=== PATIENT | male | born 1950 | race Caucasian/White ===

== ENCOUNTER → 2017-05-05 | Outpatient (CLI) | payer OTHER ==
[~2017-05-05] VITALS: Ht 182.9 cm; Wt 86.2 kg
[~2017-05-05] MED LIST: ADVAIR 250-501 EACH INH; ADVAIR HFA 230M12 GM INH; ALBUTEROL2.5 MG/31 INH; ASPIRIN325 PO; COMBIVENT INH; COMBIVENT RESPIM4 GM INH; COZAAR 50 MG TA50 M2 PO; FENOFIBRATE145 M1 PO; FLONASE 0.05%50 MCG NASAL; LIPITOR10 MG PO; LOSARTAN-HCTZ1 EAC3 PO; PAIN & FEVER325 MG PO; PRADAXA150 MG PO; SORINE 80 MG TA80 M1 PO; SPIRIVA INH; VENTOLIN HFA 1818 GM INH
--- NOTE | ~2017-05-05 | P ---
[facility] [place] [address] PROCEDURE REPORT Name: MOISES AQUINO Room #: REG [facility]#: [id number] Admission: 05/05/17 Attend Phys: Lalo Rea MD Discharge: Date of : 51 Report #: [id number] THIS REPORT FOR: //name// CC: Lalo Rea BRIEF HISTORY: The patient is a 67-year-old male for his initial average risk screening colonoscopy. PREOPERATIVE DIAGNOSIS: Average risk screening colonoscopy. POSTOPERATIVE DIAGNOSES: 1. Multiple colon polyps. 2. Few scattered diverticula. 3. Unremarkable rectosigmoid surgical anastomosis. MEDICATIONS: Deep sedation with propofol per anesthesia. SPECIMENS: 1. Mid ascending colon polyp. 2. Splenic flexure polyp. 3. Polyps at 70 cm times 2. 4. Polyps at 50 cm times 3. 5. Polyps at 40 cm times 4. 6. Polyp at 20 cm. ESTIMATED BLOOD LOSS: 5 mL. PROCEDURE: Colonoscopy to cecum and terminal ileum with snare polypectomy and biopsy. FINDINGS: Prior to propofol sedation, the procedure of colonoscopy discussed with the patient as well as potential risks, benefits, and complications. He indicates he understands and desires to proceed. With the patient in left lateral decubitus position, digital examination was completed, which revealed no abnormalities. Subsequently, the [employer] video colonoscope was introduced into the rectum, advanced under direct vision to the cecum. Done with minimal difficulty. The cecum was identified by the ileocecal valve and the appendiceal orifice. We made multiple attempts to cross the ileocecal valve. We were able to advance the tip of the scope the ileocecal valve, but due looping, it would not pass into the terminal ileum. At that point, the scope was slowly withdrawn and careful circumferential views were obtained. The prep was good and as we withdrew the scope, he had normal appearing mucosa. In the proximal ascending colon, a small diverticulum was seen. As we withdrew the scope, a sessile polyp was seen in the mid ascending [facility] [address] [place] [address] PROCEDURE REPORT Name: MOISES AQUINO [facility] [id number] Admission: 05/05/17 Attend Phys: Lalo Rea MD Discharge: Date of : 51 Report #: [id number] colon. It was about 5 mm or so in greatest dimension. It was removed by cold snare polypectomy and recovered. The scope was further withdrawn and he was found to have another polyp at the splenic flexure, which was also about 5 mm and a sessile polyp removed by cold snare polypectomy. The scope was further withdrawn and at 70 cm, 2 polyps were seen. They were both removed by cold snare polypectomy. These were actually the flat lesions and the largest was about 8 mm. The scope was further withdrawn and at 50 cm, 3 diminutive polyps were seen and removed by biopsy. The scope was further withdrawn and 4 flat polyps were seen and removed by cold and hot snare polypectomy at 40 cm. The largest was in the range of about 8-10 mm. At 20 cm, a diminutive polyp was seen and removed by biopsy. The scope was further withdrawn and a few diverticula were seen. The rectosigmoid anastomosis was identified and noted to be unremarkable and widely patent. Scope was withdrawn in the rectum. Upon retroflexion, no additional abnormalities were seen. Scope was withdrawn. The patient tolerated the procedure well. CONDITION OF THE PATIENT UPON DISCHARGE: Following the procedure, the patient drowsy and he will be discharged home when fully ambulatory. INSTRUCTIONS TO THE PATIENT AND FAMILY AT THE TIME OF DISCHARGE: The patient had multiple polyps removed. A total of 12 were removed today. We will follow up on the path report. If 10 or more of these are adenomas, he should consider genetic counselling. Also, due to the large number of polyps, I suggest he return in 3 years for his next colonoscopy. This is the patient's initial average risk screening colonoscopy. Withdrawal time from the cecum including the polypectomy was 30 minutes and 39 seconds. By: 1055 1317 Lalo Rea MD /lorri
--- NOTE | ~2017-05-05 | S ---
[facility] [address] [place] [address] SURGICAL PATH RPT PROCEDURE Name: MOISES AQUINO Room #: REG [facility] [place].#: [id number] Admission: 05/05/17 Date of : 52 Discharge: Report #: [id number] Path Case #: [id number] PATHOLOGY REPORT DRAFT COLLECTION DATE: 05/05/2017 RECEIVED DATE: 05/06/2017 SPECIMEN(S) RECEIVED: A.Mid ascending polyp B.Spleenic flexure polyp C.Polyp 70 cm x2 D.Polyp at 50 cm x3 E.Polyp 40 cm x4 F.Polyp 20 cm
== END | disposition home or self-care (01) ==
LOC: GI 08:15
DX: Z12.11 Encounter for screening for malignant neoplasm of colon (principal); K63.5 Polyp of colon; K57.30 Diverticulosis of large intestine without perforation or abscess without bleeding; J43.9 Emphysema, unspecified; I10 Essential (primary) hypertension; E78.00 Pure hypercholesterolemia, unspecified; Z87.891 Personal history of nicotine dependence; Z98.890 Other specified postprocedural states; Z98.0 Intestinal bypass and anastomosis status; Z79.899 Other long term (current) drug therapy; Z79.82 Long term (current) use of aspirin
CPT/HCPCS: 62110; 62900

== ENCOUNTER 2017-06-03 15:04 | Inpatient (IN) | payer OTHER ==
[~2017-06-03] VITALS: Ht 182.9 cm; Wt 97.5 kg
--- NOTE | ~2017-06-03 | HC ---
[facility] [place] [address] CONSULTATION Name: MOISES AQUINO Room #: 350-P [facility] IN M.R.#: [id number] Admission: 06/03/17 Attend Phys: Deshawn Hernández MD Discharge: Date of : 51 Report #: [id number] THIS REPORT FOR: //name// CC: Gamaliel Pizano DATE OF SERVICE: 06/03/2017 REFERRING PROVIDER: Dr. Deshawn Hernández. REASON FOR CONSULTATION: Shortness of breath. HISTORY OF PRESENT ILLNESS: Our group was asked to see the patient in consultation while hospitalized at [facility], well known to me from office visits, pleasant 67-year-old male with an extensive history of emphysema with significant airflow obstruction on pulmonary function studies typically on inhaled therapy at home with p.r.n. albuterol and Spiriva as well as Advair and p.r.n. nebulizer treatments. The patient notes about 24 hours of increasing shortness of breath much worse today with minimal cough. No sputum production. No fevers, chills or sweats. No chest pains. Some improvement with Ventolin inhaler, but has used multiple times today with persistent symptoms, presented to the Emergency Department for further evaluation and was found to be in atrial fibrillation with rapid ventricular response. He has known history of atrial fibrillation. Also had significant electrolyte disturbances noted. A chest x-ray had shown a possible right upper lobe nodule. Most recent CT scan of the chest done on 03/2016 showed emphysema without any nodules in the chest. Denies any hemoptysis or other chest symptoms at this time. ALLERGIES: None known. PAST MEDICAL HISTORY: 1. COPD with severe air flow obstruction, emphysema, predominant on imaging studies. 2. History of paroxysmal atrial fibrillation. 3. Hypertension. 4. Hyperlipidemia. OUTPATIENT MEDICATIONS: Include Ventolin inhaler p.r.n., Spiriva daily, sotalol twice daily, losartan/ hydrochlorothiazide, atorvastatin, DuoNeb, aspirin and Advair. [facility] [address] [place] [address] CONSULTATION Name: MOISES AQUINO Room #: 350-P [facility] IN [facility].#: [id number] Admission: 06/03/17 Attend Phys: Deshawn Hernández MD Discharge: Date of : 51 Report #: [id number] SOCIAL HISTORY: Former smoker, quitting several years ago. No significant alcohol consumption. FAMILY HISTORY: Negative for any significant pulmonary disease. REVIEW OF SYSTEMS: CONSTITUTIONAL: Denies any fevers, chills or sweats. ENT: No upper respiratory congestion, rhinorrhea or dysphagia. CARDIOVASCULAR: Denies any chest pain or palpitations. GASTROINTESTINAL: No nausea, vomiting, diarrhea, constipation or abdominal pain. GENITOURINARY: No dysuria, no frequency or hematuria. INTEGUMENT: Denies any rash. MUSCULOSKELETAL: No joint pains, no lower extremity edema and no cramping. PHYSICAL EXAMINATION: VITAL SIGNS: Afebrile, pulse 130s and irregular, respiratory rate 20, blood pressure 116/71 and oxygen saturation 97% on room air. GENERAL: This is a pleasant elderly male, in no distress. HEENT: Clear oropharynx, Mallampati 1 airway, no thrush. NECK: Supple, no lymphadenopathy. LUNGS: Diminished, but clear. No wheezes noted. Prolonged expiratory phase appreciated. CARDIOVASCULAR: Heart: Tachycardic and irregular. No murmurs. ABDOMEN: Soft, nontender and no masses. EXTREMITIES: Without edema, warm and 2+ pulses. INTEGUMENT: No rash. LABORATORY DATA: Arterial blood gas on room air reveals pH 7.55, pCO2 of 31, pO2 of 72 and bicarb 26. White blood cell count 13,000, hemoglobin 15, hematocrit 44 and platelet count 412. Sodium 123, potassium 3.1, chloride 85, bicarbonate 28, BUN 23, creatinine 1.3, glucose 140 and proBNP mildly elevated at 699. CT scan of the chest is pending. IMPRESSION: 1. Acute exacerbation of chronic obstructive pulmonary disease. 2. Possible right upper lobe mass or infiltrate. 3. Atrial fibrillation with rapid ventricular response. 4. Significant emphysema. SUGGESTIONS: 1. Antimicrobial therapy for community-acquired pneumonia. 2. Systemic steroid taper. 3. Bronchodilators would change from DuoNebs to levalbuterol with ipratropium given significant tachycardia. 4. Await CT scan of the chest. [address] [address] CONSULTATION Name: MOISES AQUINO Room #: 350-P [facility] IN M.R.#: [id number] Admission: 06/03/17 Attend Phys: Deshawn Hernández MD Discharge: Date of : 51 Report #: [id number] 5. Sputum and blood cultures. 6. Additional recommendations to follow. Thank you for requesting our suggestions. By: 2244 0055 Toribio Pizano MD /lorri
--- NOTE | ~2017-06-03 | EKG ---
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
--- NOTE | ~2017-06-03 | HC ---
[facility] [place] [address] CONSULTATION Name: MOISES AQUINO Room #: 350-P ADM IN M.R.#: [id number] Admission: 06/03/17 Attend Phys: Deshawn Hernández MD Discharge: Date of : 51 Report #: [id number] THIS REPORT FOR: //name// CC: Gamaliel Pizano DATE OF SERVICE: 06/04/2017 HISTORY OF PRESENT ILLNESS: The patient is a 67-year-old white male who I was asked to see in the hospital today after he was noted be in atrial fibrillation. 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 He was admitted to the hospital and converted to sinus rhythm. I placed him on sotalol and Pradaxa. In 2012, he had another episode of atrial fibrillation, but never required cardioversion. Previous echocardiogram showed normal left ventricular function. He has remained in sinus rhythm since that time. Because of low CARINA score and no recurrent episodes of sotalol, actually recommended discontinuing Pradaxa in the past. He is not very active because of his COPD. However, he notes for the past few weeks, he has felt fatigued, had no appetite, felt somewhat lightheaded. He actually denied any chest pain, palpitations, or edema. Finally, came to the hospital last night, was noted to be in atrial fibrillation. He was started on IV diltiazem. He converted to sinus rhythm. PAST MEDICAL HISTORY: Otherwise significant for previous colostomy for diverticular disease, hernia repair. He has a history of hypertension, COPD. MEDICATIONS: Consist of Proventil nebulizer, aspirin a day, Lipitor 10 mg a day, losartan HCT 100/25 a day, sotalol 80 mg twice a day. ALLERGIES: He has previous intolerance to LEVOFLOXACIN. FAMILY HISTORY: His father had a heart attack. SOCIAL HISTORY: He is . He and his live in [place], [place]. He is retired from working as a . He quit smoking years ago. He rarely drinks alcohol. REVIEW OF SYSTEMS: He has had no history of stroke, peptic ulcer disease. Recent colonoscopy showed polyp, no liver disease, no kidney disease, no cancer, no psychiatric illness. PHYSICAL EXAMINATION: GENERAL: Revealed a middle-aged male lying in bed, appeared in no distress. [facility] [address] [place] [address] CONSULTATION Name: MOISES AQUINO Room #: 350-P [facility] IN [facility]#: [id number] Admission: 06/03/17 Attend Phys: Deshawn Hernández MD Discharge: Date of : 51 Report #: [id number] VITAL SIGNS: Currently his blood pressure is 100/60, his pulse is 80. He is afebrile. HEENT: He was anicteric. Conjunctivae pink. Mucous membranes moist. NECK: Veins nondistended. No carotid bruits. Neck supple. CHEST: Clear to auscultation. CARDIOVASCULAR: Regular rate and rhythm. ABDOMEN: Soft, nontender. EXTREMITIES: Had no edema. Posterior pulse 2+ bilaterally. SKIN: Warm, dry. NEUROLOGIC: Nonfocal. LYMPH: No adenopathy. MUSCULOSKELETAL: No joint effusion. His ECG on admission yesterday showed atrial fibrillation with a rapid ventricular response rate. He currently appears to be in sinus rhythm. His workup yesterday, he had a chest x-ray that showed normal heart size, clear lung marie. His CT scan of the chest with contrast last night showed right lung mass, possible inflammatory, although malignancy cannot be excluded. Consider followup. He had a small adrenal mass, distended gallbladder. There did appear to be an abdominal aortic aneurysm. His lab work, sodium 127, potassium is only 2.5, BUN 19, creatinine 1.1. Liver function studies were normal. Troponin 0.06. White blood cell count 12.8, hemoglobin 15.3, MCV is 108. IMPRESSION AND RECOMMENDATIONS: 1. Paroxysmal atrial fibrillation. I did recommend increasing sotalol to 160 mg twice day. I would resume Pradaxa 150 mg every 12 hours and stop aspirin. 2. Hypertension. Blood pressure noted to be low. I would discontinue the ARB and diuretics. 3. Hyperkalemia. Recommend replacing potassium. 4. Hyperlipidemia. The patient is on a statin drug. 5. Chronic obstructive pulmonary disease. 6. Previous tobacco abuse. 7. Lung mass. Recommend followup CT scan. 8. Small abdominal aortic aneurysm. Recommend followup ultrasound. <ELECTRONICALLY SIGNED> By: Gamaliel Sol MD, [facility] 06/05/17 1044 1435 1628 Gamaliel Sol MD, FACC /nt
[2017-06-03 15:07] VITALS: BP 117/97
[2017-06-03 16:21] LABS: ABG SAMPLE TYPE ARTERIAL; BE(vivo) 4.7 mmol/L (-2 to +3); HCO3 26.3 mmol/L (22.0-26.0); LACTATE 2.06 mmol/L (0.5-2.0); O2(CT) 20.6 mL/dL (15.0-23.0); O2Hb 94.4 % (92.0-98.0); PCO2 30.8 mmHg (35.0-45.0); PO2 71.5 mmHg (80.0-100.0); STICK SITE L.BRACHIAL; sO2 96.2 % (92.0-98.0); tCO2 27.3 mmol/L (24.0-30.0)
[2017-06-03 16:22] LABS: HEMOGLOBIN 15.3 gm/dL (14.0-18.0); MCH 37.7 pg (26.0-34.0); MCHC 34.8 g/dL (28.0-37.0); MCV 108.5 fL (80.0-100.0); PLATELET COUNT 412 thou/uL (150-400); RBC 4.06 mil/uL (4.50-6.00); RDW 14.4 % (10.5-14.5); WBC 12.8 thou/uL (4.0-11.0)
[2017-06-03 16:24] LABS: MANUAL DIFF YES
[2017-06-03 16:33] LABS: CALCIUM 9.1 mg/dL (8.5-10.1); CREATININE 1.3 mg/dL (0.7-1.3)
[2017-06-03 16:38] LABS: POTASSIUM 2.1 mmol/L (3.5-5.1)
[2017-06-03 16:44] LABS: ALBUMIN 3.2 g/dL (3.4-5.0); TOTAL BILIRUBIN 0.6 mg/dL (<0.1-1.0); TOTAL PROTEIN 6.8 g/dL (6.4-8.2)
[2017-06-03 16:45] LABS: TROPONIN-I 0.06 ng/mL (<0.04-0.07)
[2017-06-03 17:01] LABS: ABSOLUTE NEUTROPHILS 10.9 thou/uL (1.4-8.2); MACROCYTES 2+; OVALOCYTES 1+; TOTAL CELL COUNT 100
[2017-06-03 18:07] VITALS: BP 127/84
[2017-06-03 18:56] VITALS: BP 116/71
[2017-06-03 19:40] VITALS: BP 115/75
[2017-06-03 22:21] VITALS: BP 111/81
[2017-06-03 23:36] LABS: CREATININE 1.1 mg/dL (0.7-1.3)
[2017-06-03 23:42] LABS: POTASSIUM 2.5 mmol/L (3.5-5.1)
[2017-06-04] VITALS (9 sets, daily range): BP systolic 85–185; BP diastolic 49–69
[2017-06-05 04:09] VITALS: BP 88/50
[2017-06-05 08:16] VITALS: BP 99/68
[2017-06-05 09:16] LABS: HEMATOCRIT 38.7 % (42.0-52.0); MCH 37.8 pg (26.0-34.0); MCV 111.3 fL (80.0-100.0); RBC 3.48 mil/uL (4.50-6.00); RDW 14.7 % (10.5-14.5); WBC 13.1 thou/uL (4.0-11.0)
[2017-06-05 09:19] LABS: HEMOGLOBIN 13.2 gm/dL (14.0-18.0)
[2017-06-05 09:24] LABS: CALCIUM 8.5 mg/dL (8.5-10.1); CREATININE 1.1 mg/dL (0.7-1.3); POTASSIUM 3.4 mmol/L (3.5-5.1)
[2017-06-05 09:27] LABS: PHOSPHORUS 1.2 mg/dL (2.5-4.9)
[2017-06-05] MEDS ORDERED: AUGMENTIN 875-1 EACH PO (09:45)
[2017-06-05] MEDS ORDERED: PRADAXA150 MG PO (09:46)
[2017-06-05] MEDS ORDERED: MEDROLDOSEPACK PO (09:48)
[2017-06-05 11:12] VITALS: BP 99/68
== END 2017-06-05 12:00 | disposition home or self-care (01) | DRG 190 ==
LOC: ER 15:04 → EROBS 17:03 → 3W 17:03
PROVIDERS: Hospitalist; Internal Medicine; Nurse Practitioner Family
DX: J44.0 Chronic obstructive pulmonary disease with (acute) lower respiratory infection (principal); J18.9 Pneumonia, unspecified organism; E87.1 Hypo-osmolality and hyponatremia; J44.1 Chronic obstructive pulmonary disease with (acute) exacerbation; I10 Essential (primary) hypertension; E78.00 Pure hypercholesterolemia, unspecified; E87.6 Hypokalemia; I48.0 Paroxysmal atrial fibrillation; E87.5 Hyperkalemia; R91.8 Other nonspecific abnormal finding of lung field; I71.4 Abdominal aortic aneurysm, without rupture; Z79.51 Long term (current) use of inhaled steroids; Z79.82 Long term (current) use of aspirin; Z23 Encounter for immunization; Z79.899 Other long term (current) drug therapy; Z87.891 Personal history of nicotine dependence; Z93.3 Colostomy status; Z88.1 Allergy status to other antibiotic agents; Z82.49 Family history of ischemic heart disease and other diseases of the circulatory system
CPT/HCPCS: 10779

== ENCOUNTER 2017-06-16 16:53 | Emergency (ER) | payer OTHER ==
[~2017-06-16] VITALS: Ht 182.9 cm; Wt 90.7 kg
--- NOTE | ~2017-06-16 | EKG ---
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
[~2017-06-16 16:53] MED LIST changes: +AUGMENTIN 875-1 EACH PO; +MEDROLDOSEPACK PO
[2017-06-16 17:37] LABS: ABSOLUTE NEUTROPHILS 7.4 thou/uL (1.4-8.2); BASOPHILS 0.8 % (0.0-2.0); EOSINOPHILS 0.9 % (0.0-3.0); HEMATOCRIT 44.3 % (42.0-52.0); HEMOGLOBIN 15.2 gm/dL (14.0-18.0); LYMPHOCYTES 10.8 % (24.0-44.0); MANUAL DIFF NO; MCH 39.1 pg (26.0-34.0); MCHC 34.4 g/dL (28.0-37.0); MCV 113.6 fL (80.0-100.0); MONOCYTES 5.6 % (1.0-8.0); PLATELET COUNT 356 thou/uL (150-400); POLYS 81.9 % (36.0-66.0); RDW 15.4 % (10.5-14.5)
[2017-06-16 17:46] LABS: ANION GAP 10 mmol/L (7-16); BUN 17 mg/dL (7-18); CALCIUM 8.7 mg/dL (8.5-10.1); CHLORIDE 97 mmol/L (98-107); CO2 24 mmol/L (21-32); CREATININE 0.9 mg/dL (0.7-1.3); GLUCOSE 117 mg/dL (74-106); POTASSIUM 3.4 mmol/L (3.5-5.1); SODIUM 131 mmol/L (136-145)
[2017-06-16 17:54] LABS: ALBUMIN 3.2 g/dL (3.4-5.0); ALKALINE PHOSPHATASE 81 U/L (46-116); SGOT 19 U/L (15-37); SGPT 22 U/L (30-65); TOTAL BILIRUBIN 0.6 mg/dL (<0.1-1.0); TOTAL PROTEIN 6.4 g/dL (6.4-8.2); TROPONIN-I < 0.04 ng/mL (<0.06)
== END 2017-06-16 19:13 | disposition home or self-care (01) ==
LOC: ER 16:53
PROVIDERS: Physician Assistant
DX: R00.2 Palpitations (principal); I48.91 Unspecified atrial fibrillation; J44.9 Chronic obstructive pulmonary disease, unspecified; I10 Essential (primary) hypertension; E78.00 Pure hypercholesterolemia, unspecified; F10.99 Alcohol use, unspecified with unspecified alcohol-induced disorder; Z87.891 Personal history of nicotine dependence

== ENCOUNTER 2017-06-30 07:50 | Inpatient (IN) | payer OTHER ==
[2017-06-30] VITALS (7 sets, daily range): BP systolic 96–127; BP diastolic 64–86
[~2017-06-30] VITALS: Ht 185.4 cm; Wt 89.8 kg
--- NOTE | ~2017-06-30 | 2DMMODE ---
[facility] [place] [address] 2 D/M-MODE ECHOCARDIOGRAM Name: KENIAMOISES Room #: 360-P [facility] IN ..#: [id number] Admission: 06/30/17 Attend Phys: Heraclio Sinclair MD Discharge: Date of : 52 Date of Service: 07/01/17 1302 Report #: [id number] THIS REPORT FOR: //name// APPROVED REPORT Study performed: 07/01/2017 11:41:51 EXAM: Comprehensive 2D, Doppler, and color-flow Echocardiogram Patient Location: Bedside Room #: 360 Status: routine BSA: 2.12 HR: 103 bpm BP: 104/74 mmHg Other Information Study Quality: Poor Indications COPD Atrial Fibrillation Dyspnea 2D Dimensions LVEF(%): 49.54 (>50%) IVSd: 9.35 (7-11mm) LVOT Diam: 19.08 (18-24mm) LVDd: 42.14 mm PWd: 10.35 (7-11mm) Ascending Ao: 36.21 (22-36mm) LVDs: 31.68 (25-40mm) Aortic Root: 38.09 mm Feng's LVEF: 49.54 % Aortic Valve AoV Peak Kurt.: 1.16 m/s AO Peak Gr.: 5.41 mmHg Left Ventricle The left ventricle is normal size. Regional wall motion is not well visualized but grossly normal. There is normal left ventricular wall thickness. The left ventricular systolic function is normal. The left ventricular ejection fraction is within the normal range. LVEF is 50-55%. This study is not technically sufficient to allow evaluation of the LV diastolic function. Right Ventricle [facility] [address] [place] [address] 2 D/M-MODE ECHOCARDIOGRAM Name: MOISES AQUINO Room #: 360-[facility] IN [facility].#: [id number] Admission: 06/30/17 Attend Phys: Heraclio Sinclair MD Discharge: Date of : 52 Date of Service: 07/01/17 1302 Report #: [id number] The right ventricle is normal size. The right ventricular systolic function is normal. Atria The left atrium size is normal. The right atrium size is normal. Aortic Valve Aortic valve is not well visualized. No aortic regurgitation is present. There is no aortic valvular stenosis. Mitral Valve Mitral valve is not well visualized. There is no mitral valve regurgitation noted. No evidence of mitral valve stenosis. Tricuspid Valve Tricuspid valve is not well visualized. There is no tricuspid valve regurgitation noted. Pulmonic Valve Pulmonic valve is not well visualized. Great Vessels The aortic root is normal in size. IVC is normal in size and collapses >50% with inspiration. Pericardium Mild to moderate anterior pericardial effusion. <Conclusion> LVEF is 50-55%. Regional wall motion is not well visualized but grossly normal. There is no aortic valvular stenosis. Aortic valve is not well visualized. Mitral valve is not well visualized. No evidence of mitral valve stenosis. There is no mitral valve regurgitation noted. <ELECTRONICALLY SIGNED> By: Bradly Gipson MD, FACC 07/01/17 1302 1302 130 Bradly Gipson MD, FACC /INF
--- NOTE | ~2017-06-30 | EKG ---
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 : 1950 Requested By: Heraclio Sinclair Order Number: [id number] MD: Prashant Evans Measurements Intervals [place] Rate: 141 P: 0 [place]: 114 QRS: -72 QRSD: 111 T: 99 QT: 347 QTc: 532 Interpretive Statements Atrial fibrillation with a rapid ventricular response Left anterior fascicular block Poor R wave progression Borderline repolarization abnormality Prolonged QT interval No previous ECGs available for comparison Electronically Signed On 07-01-2017 8:52:46 [place] JUDGE by Prashant Evans [email or web address] <ELECTRONICALLY SIGNED> By: Prashant Evans MD, [facility] 07/01/17 0852 1343 42 Prashant Evans MD, [facility] /EPI
--- NOTE | ~2017-06-30 | HC ---
[facility] [place] [address] CONSULTATION Name: MOISES AQUINO Room #: 360-P [facility] IN M.R.#: [id number] Admission: 06/30/17 Attend Phys: Heraclio Sinclair MD Discharge: Date of : 51 Report #: [id number] THIS REPORT FOR: //name// CC: Heraclio Bahena REASON FOR CONSULTATION: Tachycardia, atrial fibrillation, shortness of breath. HISTORY OF PRESENT ILLNESS: The patient is a 67-year-old man with severe obstructive lung disease presenting with 3-5 days of increasing shortness of breath, productive cough and shortness of breath. He denies chest pain or pressure. We are asked to see him because he has had tachycardia of a sinus mechanism predominantly with frequent PACs, but has a history of atrial fibrillation paroxysmally. He is maintained in sinus rhythm with sotalol. He has been compliant with his medications. He has not really noticed any palpitation sensations, but he reported when he was in AFib he could not feel it either. He was supposed to be on Pradaxa and was discharged after his last evaluation and treatment by Dr. Sol, his usual imaging analyst, but then he ran out of the samples and then when he went to get it filled, his insurance copay was too high, so he only is taking aspirin currently. He has no current neuro symptoms of slurred speech, numbness or weakness. He denies bleeding, black color stools, hematemesis or hematuria. He denies syncope or presyncope. PAST MEDICAL HISTORY: Significant for the following: Previous colostomy for diverticular disease, hypertension, paroxysmal atrial fibrillation, history of normal LV systolic function, COPD. ALLERGIES: LEVOFLOXACIN. FAMILY HISTORY: Coronary artery disease. SOCIAL HISTORY: He is and is a remote smoker, he quit years ago. He does not drink. REVIEW OF SYSTEMS: GASTROINTESTINAL: No abdominal pain, nausea, vomiting, hematemesis. NEUROLOGIC: Denies slurred speech, weakness. MOUTH: Denies any dysphagia. SKIN: No rashes, no edema. GENITOURINARY: No dysuria. PULMONARY: Positive shortness of breath, positive cough, positive dyspnea on [facility] [address] [place] [address] CONSULTATION Name: MOISES AQUINO Room #: 360-P [facility] IN .R.#: [id number] Admission: 06/30/17 Attend Phys: Heraclio Sinclair MD Discharge: Date of : 52 Report #: [id number] exertion, positive PND. HEMATOLOGIC: No anemia or bleeding disorders. PAST SURGICAL HISTORY: No recent surgeries. PHYSICAL EXAMINATION: VITAL SIGNS: Blood pressure 104/74, pulse is 100 in sinus tachycardia, O2 sats of 100% on O2 via nasal cannula. GENERAL: This is a middle-aged male. He is alert, oriented, no apparent distress. HEENT: Eyes, EOMS are intact. No facial asymmetry. NECK: Supple. No jugular venous distention. CARDIOVASCULAR: Regular. There is no murmur, heart tones are distant. LUNGS: Faint expiratory wheezes, diminished breath sounds, no rales. ABDOMEN: Nontender. EXTREMITIES: No peripheral edema. IMAGING: Chest x-ray shows no evidence of heart failure. LABORATORY DATA: Sodium is 140, potassium is 2.4, chloride is 100, CO2 is 32, BUN is 8, creatinine is 0.8. Troponin I is 0.10. BNP is 1361. Hemoglobin is 13.8, white blood cell count is 6.8, platelet count is 240,000. IMPRESSION AND PLAN: 1. Respiratory failure. I suspect this is a chronic obstructive pulmonary disease exacerbation based on his x-ray findings. He does have an elevated BNP level, but I suspect this is probably related to pulmonary hypertension and right ventricular strain. 2. Paroxysmal atrial fibrillation. Given his lung disease, I am doubtful that he will be maintained in sinus rhythm with sotalol, thus I recommended restarting anticoagulation as Dr. Sol had recommended with oral warfarin as he cannot afford a novel agent. 3. Hypokalemia Replace per protocol. 4. Chronic obstructive pulmonary disease: Continue with medical therapy including nebulizers and if necessary, steroids as directed by our hospital colleagues. By: 0835 1133 Bradly Gipson MD, FACC /nt
--- NOTE | ~2017-06-30 | EKG ---
[address] [place] [address] ELECTROCARDIOGRAM REPORT Name: MOISES AQUINO Room #: 360-P ADM IN M.R.#: [id number] Admission: 06/30/17 Attend Phys: Heraclio Sinclair MD Discharge: Date of : 52 Report #: [id number] THIS REPORT FOR: //name// [facility] ED Test Date: 2017-06-30 Test Time: 08:06:36 Pat Name: MOISES AQUINO Department: Room: 360 Gender: M Nylon Machine Operator: RADHA : 1950 Requested By: Tristan Evans Order Number: [id number] MD: Prashant Evans Measurements Intervals [place] Rate: 106 P: 251 [place]: 67 QRS: -71 QRSD: 121 T: 94 QT: 467 QTc: 621 Interpretive Statements Technically poor tracing Probable Sinus tachycardia Nonspecific IVCD with LAD Inferior infarct, old Poor R wave progression Compared to ECG 06/16/2017 17:09:21 Inferior Q waves are more prominent heart rate is increased Electronically Signed On 07-01-2017 8:46:26 MEDICAID PLAN COMPLIANCE DIRECTOR by Prashant Evans [email or web address] <ELECTRONICALLY SIGNED> By: Prashant Evans MD, [facility] 07/01/17 0846 5 5 Prashant Evans MD, [facility] /EPI
[2017-06-30 08:44] LABS: HEMATOCRIT 44.8 % (42.0-52.0); HEMOGLOBIN 15.1 gm/dL (14.0-18.0); MCH 38.8 pg (26.0-34.0); MCHC 33.7 g/dL (28.0-37.0); MCV 115.1 fL (80.0-100.0); PLATELET COUNT 362 thou/uL (150-400); RBC 3.89 mil/uL (4.50-6.00); RDW 17.8 % (10.5-14.5); WBC 9.5 thou/uL (4.0-11.0)
[2017-06-30 08:46] LABS: MANUAL DIFF YES
[2017-06-30 08:47] LABS: CALCIUM 8.9 mg/dL (8.5-10.1); CREATININE 0.8 mg/dL (0.7-1.3); POTASSIUM 3.2 mmol/L (3.5-5.1)
[2017-06-30 08:56] LABS: TROPONIN-I 0.1 ng/mL (<0.06)
[2017-06-30 09:41] LABS: ABSOLUTE NEUTROPHILS 8.3 thou/uL (1.4-8.2); ANISOCYTOSIS 1+; MACROCYTES 2+; PLATELET ESTIMATE NORMAL; TOTAL CELL COUNT 100
[2017-07-01 04:10] VITALS: BP 94/67
[2017-07-01 06:01] LABS: HEMATOCRIT 40.6 % (42.0-52.0); HEMOGLOBIN 13.8 gm/dL (14.0-18.0); MCH 38.9 pg (26.0-34.0); MCV 114.4 fL (80.0-100.0); RBC 3.55 mil/uL (4.50-6.00); RDW 17.3 % (10.5-14.5); WBC 6.8 thou/uL (4.0-11.0)
[2017-07-01 06:09] LABS: CALCIUM 8.4 mg/dL (8.5-10.1); CREATININE 0.8 mg/dL (0.7-1.3)
[2017-07-01 06:15] LABS: POTASSIUM 2.4 mmol/L (3.5-5.1)
[2017-07-01 07:52] VITALS: BP 104/74
[2017-07-01 14:20] VITALS: BP 102/61
[2017-07-01 19:26] VITALS: BP 102/73
[2017-07-02 03:14] VITALS: BP 103/63
[2017-07-02 03:44] LABS: PROTIME 10.1 Seconds (9.3-11.4)
[2017-07-02 03:50] LABS: CALCIUM 8.4 mg/dL (8.5-10.1); CREATININE 0.9 mg/dL (0.7-1.3); POTASSIUM 3.1 mmol/L (3.5-5.1)
[2017-07-02 08:07] VITALS: BP 114/69
[2017-07-02] MEDS ORDERED: COUMADIN 5 MG TA5 M1 PO (10:15)
[2017-07-02 10:23] VITALS: BP 114/69
== END 2017-07-02 13:14 | disposition home or self-care (01) | DRG 308 ==
LOC: ER 07:50 → 3W 10:51 → EROBS 10:51 → 3W 11:52
PROVIDERS: Emergency Medicine; Hospitalist
DX: I48.0 Paroxysmal atrial fibrillation (principal); J96.90 Respiratory failure, unspecified, unspecified whether with hypoxia or hypercapnia; J44.1 Chronic obstructive pulmonary disease with (acute) exacerbation; I11.0 Hypertensive heart disease with heart failure; I50.9 Heart failure, unspecified; E78.00 Pure hypercholesterolemia, unspecified; E87.6 Hypokalemia; Z87.891 Personal history of nicotine dependence; Z79.899 Other long term (current) drug therapy; Z79.82 Long term (current) use of aspirin; Z88.1 Allergy status to other antibiotic agents; Z82.49 Family history of ischemic heart disease and other diseases of the circulatory system; Z90.49 Acquired absence of other specified parts of digestive tract
CPT/HCPCS: 10779

== ENCOUNTER 2017-07-25 15:33 | Emergency (ER) | payer OTHER ==
[~2017-07-25] VITALS: Ht 185.4 cm; Wt 86.2 kg
[~2017-07-25 15:33] MED LIST changes: +COUMADIN 5 MG TA5 M1 PO; +POTASSIUM CHLO10 MEQ PO
[2017-07-25] MEDS ORDERED: DOXYCYCLINE 10100 MG PO (18:00)
[2017-07-25] MEDS ORDERED: OXYCODONE HCL 55 MG PO (18:00)
[2017-07-28] MEDS ORDERED: LEVAQUIN 250 M250 MG PO (00:10)
[2017-07-28] MEDS ORDERED: SOTALOL240 MG PO (03:44)
== END 2017-07-25 18:20 | disposition home or self-care (01) ==
LOC: ER 15:33
DX: L03.113 Cellulitis of right upper limb (principal); I82.611 Acute embolism and thrombosis of superficial veins of right upper extremity; J44.9 Chronic obstructive pulmonary disease, unspecified; I10 Essential (primary) hypertension; E78.00 Pure hypercholesterolemia, unspecified; Z87.891 Personal history of nicotine dependence

== ENCOUNTER 2017-08-16 06:05 | Inpatient (IN) | payer OTHER ==
[2017-08-16] VITALS (10 sets, daily range): BP systolic 104–130; BP diastolic 57–83
[~2017-08-16] VITALS: Ht 185.4 cm; Wt 85.3 kg
--- NOTE | ~2017-08-16 | EKG ---
[address] [address] ELECTROCARDIOGRAM REPORT Name: KENIAMOISES M Room #: 218-[facility] IN M.R.#: [id number] Admission: 08/16/17 Attend Phys: Markus Luong DO Discharge: 08/21/17 Date of : 52 Report #: [id number] THIS REPORT FOR: //name// [facility] Test Date: 2017-08-21 Test Time: 11:12:51 Pat Name: MOISES AQUINO Department: Room: 218 P Gender: M Transport Medic: larry : 1950 Requested By: Gamaliel Sol Order Number: [id number] MD: Prashant Evans Measurements Intervals [place] Rate: 90 P: -35 ME: 256 QRS: -70 QRSD: 118 T: 84 QT: 357 QTc: 437 Interpretive Statements Sinus rhythm Prolonged ME interval Left anterior fascicular block Nonspecific intraventricular conduction delay Compared to ECG 08/19/2017 07:22:02 No significant change was found Electronically Signed On 08-21-2017 14:34:19 HVAC DESIGN MECHANICAL ENGINEER by Prashant Evans [email or web address] <ELECTRONICALLY SIGNED> By: Prashant Evans MD, [facility] 08/21/17 1434 1112 1112 Prashant Evans MD, [facility] /EPI
--- NOTE | ~2017-08-16 | EKG ---
[address] [place] [address] ELECTROCARDIOGRAM REPORT Name: NATI AQUINOEN Jordy Room #: 218-P ADM IN M.R.#: [id number] Admission: 08/16/17 Attend Phys: Markus Luong DO Discharge: Date of : 52 Report #: [id number] THIS REPORT FOR: //name// [facility] Test Date: 2017-08-17 Test Time: 13:40:52 Pat Name: MOISES AQUINO Department: Room: 218 P Gender: M Rubber Worker: Jordy PEARL : 1950 Requested By: Amarjit Méndez Order Number: [id number] MD: Prashant Evans Measurements Intervals [place] Rate: 92 P: ND: QRS: -72 QRSD: 109 T: 96 QT: 357 QTc: 442 Interpretive Statements Atrial flutter Left anterior fascicular block Nonspecific ST and T wave abnormality Compared to ECG 08/16/2017 06:15:08 No significant change was found Electronically Signed On 08-19-2017 7:46:09 WAISTBAND SETTER by Prashant Evans [email or web address] <ELECTRONICALLY SIGNED> By: Prashant Evans MD, [facility] 08/19/17 0746 1340 1340 Prashant Evans MD, [facility] /EPI
--- NOTE | ~2017-08-16 | HC ---
[facility] [place] [address] CONSULTATION Name: MOISES AQUINO Room #: 218-P [facility] IN M.R.#: [id number] Admission: 08/16/17 Attend Phys: Markus Luong DO Discharge: Date of : 52 Report #: [id number] THIS REPORT FOR: //name// CC: Kayy Leahy MD DATE OF SERVICE: 08/16/2017 HISTORY OF PRESENT ILLNESS: The patient is a 67-year-old white male who I was asked to see in the hospital today after he was noted to be in atrial fibrillation. The patient initially presented in 2011, in atrial flutter. He was admitted to the hospital and converted to sinus rhythm. I placed him on sotalol and Pradaxa. Echocardiogram showed normal left ventricular function. He was actually taken off Pradaxa because he remained in sinus rhythm. He was just admitted to [facility] in May of this year with recurrent atrial fibrillation. He was converted to sinus rhythm. I increased sotalol from 80 to 160 mg twice day. He was noted to have swelling of his ankles. He was diuresed and was discharged on Eliquis. He states the last few days he has had recurrent palpitations. He finally came to the emergency room this afternoon and noted to be in atrial fibrillation. He was started on IV diltiazem. I was asked to see him for further evaluation and treatment. He denies any significant lightheadedness. He did feel some tightness in his chest and short of breath. He had no syncope. He has had no recent bleeding. PAST MEDICAL HISTORY: Otherwise significant for colostomy for diverticular disease, hernia repair, hypertension, COPD, he has had a history of lung nodules, has been followed by the pulmonary service, he had findings of a small abdominal aortic aneurysm on screening. CURRENT MEDICATIONS: Consists of oxycodone for chronic back pain, Eliquis 5 mg twice a day, Lasix 40 mg a day, potassium 10 mEq a day, sotalol 240 mg twice a day, albuterol inhaler, Lipitor 10 mg a day, and Flonase nasal sprays. ALLERGIES: He has no known drug allergies. FAMILY HISTORY: His father had a heart attack. SOCIAL HISTORY: He is . He and his live in [place], [place]. 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 Quit smoking recently. Rarely drinks alcohol. REVIEW OF SYSTEMS: No history of stroke or peptic ulcer disease. He had a colon polyp in the past. No liver disease. No kidney disease. No cancer. No psychiatric illness. [facility] [address] [place] [address] CONSULTATION Name: MOISES AQUINO Room #: 218-P [facility] IN M.R.#: [id number] Admission: 08/16/17 Attend Phys: Markus Luong DO Discharge: Date of : 52 Report #: [id number] PHYSICAL EXAMINATION: GENERAL: Elderly male, lying in bed, appeared in mild distress. VITAL SIGNS: His blood pressure 120/70, pulse is 130 and irregular, respirations nonlabored, he is afebrile. HEENT: He was anicteric. Mucous membranes are moist. NECK: Veins appear mildly distended. CHEST: Clear to auscultation. HEART: Irregular tachycardia. ABDOMEN: Soft. EXTREMITIES: Had trace edema. SKIN: Warm and dry. His ECG showed atrial fibrillation, left axis, rapid ventricular response rate. His workup, echocardiogram done earlier this month showed no pericardial effusion, normal left ventricular function. His chest x-ray today showed normal heart size, clear lung marie. CT scan of the chest using a PE protocol today showed prominent aorta, no aneurysm. Venous duplex scan done earlier this month showed no DVT. LAB WORK: Sodium 136, potassium 3.5, BUN was 13, creatinine 1.1, glucose 150. Troponin 0.04. His white blood cell count 11.1 and hemoglobin 14.9. TSH in May 0.49, T4 1.4. IMPRESSION AND RECOMMENDATIONS: 1. Paroxysmal atrial fibrillation. Despite sotalol. At this time, I would recommend switching from sotalol to amiodarone. I would consider referral for ablation. I would continue anticoagulation with Eliquis. 2. Hypertension. I would hold medications because of low blood pressure. 3. History of hyperlipidemia. The patient is on a statin drug. 4. Previous tobacco abuse. 5. Chronic obstructive pulmonary disease. 6. Small abdominal aortic aneurysm. 7. Edema. Suspect venous insufficiency. <ELECTRONICALLY SIGNED> By: Gamaliel Sol MD, FACC 08/17/17 0952 1727 1840 Gamaliel Sol MD, FACC /nt
--- NOTE | ~2017-08-16 | EKG ---
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 IVCD Missing lead(s): V3 Compared to ECG 07/27/2017 23:55:40 Electronically Signed On 08-16-2017 9:00:33 TRACK REPAIR PERSON by Amarjit Méndez [email or web address] <ELECTRONICALLY SIGNED> By: Amarjit Méndez MD 08/16/17 0900 4 4 Amarjit Méndez MD /KJ
--- NOTE | ~2017-08-16 | EKG ---
[address] [employer] [address] ELECTROCARDIOGRAM REPORT Name: MOISES AQUINO Room #: 218-P ADM IN M.R.#: [id number] Admission: 08/16/17 Attend Phys: Markus Luong DO Discharge: Date of : 52 Report #: [id number] THIS REPORT FOR: //name// [facility] Test Date: 2017-08-20 Test Time: 08:01:53 Pat Name: MOISES AQUINO Department: Room: 218 P Gender: M 911 Emergency Services Dispatcher: MICHELINE : 1950 Requested By: Gamaliel Sol Order Number: [id number] MD: Prashant Evans Measurements Intervals [place] Rate: 91 P: 26 PA: 260 QRS: -55 QRSD: 121 T: 89 QT: 356 QTc: 439 Interpretive Statements Sinus rhythm Prolonged PA interval Nonspecific IVCD with LAD Compared to ECG 08/19/2017 07:22:02 Sinus rhythm has replaced atrial flutter Electronically Signed On 08-21-2017 14:13:09 SEPHORA OPERATIONS CONSULTANT by Prashant Evans [email or web address] <ELECTRONICALLY SIGNED> By: Prashant Evans MD, [facility] 08/21/17 1413 08 08 Prashant Evans MD, [facility] /EPI
--- NOTE | ~2017-08-16 | EKG ---
[address] [address] ELECTROCARDIOGRAM REPORT Name: MOISES AQUINO Room #: 218-P ADM IN M.R.#: [id number] Admission: 08/16/17 Attend Phys: Markus Luong DO Discharge: Date of : 52 Report #: [id number] THIS REPORT FOR: //name// [facility] Test Date: 2017-08-17 Test Time: 07:18:29 Pat Name: MOISES AQUINO Department: Room: 218 P Gender: M Printing Shop Supervisor: tyler : 1950 Requested By: Gamaliel Sol Order Number: [id number] MD: Prashant Evans Measurements Intervals [place] Rate: 78 P: PA: QRS: -70 QRSD: 112 T: 217 QT: 410 QTc: 468 Interpretive Statements Atrial flutter with predominant 4:1 AV block Left anterior fascicular block Borderline repolarization abnormality Compared to ECG 08/16/2017 06:15:08 Atrial flutter is now present Electronically Signed On 08-19-2017 7:41:43 PICTURE BOOKER by Prashant Evans [email or web address] <ELECTRONICALLY SIGNED> By: Prashant Evans MD, [facility] 08/19/17 0741 7 7 Prashant Evans MD, [facility] /EPI
--- NOTE | ~2017-08-16 | EKG ---
[address] [address] ELECTROCARDIOGRAM REPORT Name: MOISES AQUINO Room #: 218-P ADM IN M.R.#: [id number] Admission: 08/16/17 Attend Phys: Markus Luong DO Discharge: Date of : 52 Report #: [id number] THIS REPORT FOR: //name// [facility] Test Date: 2017-08-18 Test Time: 07:25:17 Pat Name: MOISES AQUINO Department: Room: 218 P Gender: M Flanging Machine Operator: tyler : 1950 Requested By: Gamaliel Sol Order Number: [id number] MD: Amarjit Méndez Measurements Intervals [place] Rate: 81 P: AR: QRS: -77 QRSD: 117 T: 94 QT: 499 QTc: 580 Interpretive Statements Atrial flutter with predominant 4:1 AV block Left anterior fascicular block Nonspecific T abnormalities, lateral leads Electronically Signed On 08-19-2017 8:16:12 BOTTOM HOOP DRIVER by Amarjit Méndez [email or web address] <ELECTRONICALLY SIGNED> By: Amarjit Méndez MD 08/19/17 0816 D: 12724 4 Amarjit Méndez MD /KJ
--- NOTE | ~2017-08-16 | EKG ---
[address] [address] ELECTROCARDIOGRAM REPORT Name: MOISES AQUINO Room #: 218-P ADM IN M.R.#: [id number] Admission: 08/16/17 Attend Phys: Markus Luong DO Discharge: Date of : 52 Report #: [id number] THIS REPORT FOR: //name// [facility] Test Date: 2017-08-19 Test Time: 07:22:02 Pat Name: MOISES AQUINO Department: Room: 218 P Gender: M Concrete Precast Moulder: WILL : 1950 Requested By: Gamaliel Sol Order Number: [id number] MD: Prashant Evans Measurements Intervals [place] Rate: 86 P: SC: QRS: -68 QRSD: 134 T: 90 QT: 402 QTc: 481 Interpretive Statements Atrial flutter with predominant 4:1 AV block Left anterior hemiblock Compared to ECG 08/16/2017 06:15:08 No significant change was found Electronically Signed On 08-19-2017 9:15:22 FLAME CUTTER by Prashant Evans [email or web address] <ELECTRONICALLY SIGNED> By: Prashant Evans MD, [facility] [address] 1 1 Prashant Evans MD, [facility] /EPI
--- NOTE | ~2017-08-16 | TEE ---
[facility] [address] [place] [address] TRANSESOPHAGEAL ECHOCARDIOGRAM Name: MOISES AQUINO Room #: 218-P [facility] IN M.R.#: [id number] Admission: 08/16/17 Attend Phys: Markus Luong, Discharge: Date of : 52 Date of Service: 08/19/17 1519 Report #: [id number] THIS REPORT FOR: //name// APPROVED REPORT Study performed: 08/19/2017 08:34:12 EXAM: Comprehensive 2D, Doppler, and color-flow Echocardiogram Patient Location: [facility] Room #: 218 Status: routine BSA: 2.07 HR: 80 bpm BP: 133/67 mmHg Rhythm: Atrial Flutter Other Information Study Quality: Good Indications Atrial flutter Echo Enhancing Agent Indication: Rule out Shunt Agent(s) / Amount(s) Used: Agitated Saline 14 cc Procedure After obtaining informed consent, patient underwent transesophageal echo in the [employer]. Type of Sedation : Conscious Sedation Sedation was administered by Pushpa Leija RN. Sedation start time: 08:08 Case end Time: 08:20 Sedation was achieved intravenously with: Versed (3 mg) Transesophageal probe was inserted and advanced into esophagus without difficulty by Gamaliel Sol MD, FACC. Echo enhancement indication: R/O Septal defect. Echo enhancement agent administered: Agitated Saline The GIRISH was performed without complications. Throughout the procedure, the blood pressure, pulse oximetry, cardiac rhythm, and rate were monitored. The patient tolerated the procedure without adverse effects. Recovery from conscious sedation was uneventful and vital signs were stable. [facility] [address] [place] [address] TRANSESOPHAGEAL ECHOCARDIOGRAM Name: MOISES AQUINO Room #: 218-P [facility] IN ..#: [id number] Admission: 08/16/17 Attend Phys: Markus Luong, Discharge: Date of : 52 Date of Service: 08/19/17 1519 Report #: [id number] Left Ventricle The left ventricle is normal size. There is normal LV segmental wall motion. There is normal left ventricular wall thickness. The left ventricular systolic function is normal. The left ventricular ejection fraction is within the normal range. LVEF is 60-65%. Right Ventricle The right ventricle is normal size. The right ventricular systolic function is normal. Atria Left atrium is mildly dilated. Thrombus is present in the left atrial appendage. Interatrial septum is intact without evidence of ASD or PFO. Right atrium is mildly dilated. Aortic Valve The aortic valve is normal in structure. Mild aortic regurgitation. There is no aortic valvular stenosis. Mitral Valve slight bowing noted of the mitral valve leaflets Moderate mitral regurgitation. No evidence of mitral valve stenosis. Tricuspid Valve The tricuspid valve is normal in structure. Mild tricuspid regurgitation. Pulmonic Valve The pulmonary valve is normal in structure. Trace pulmonic regurgitation. Great Vessels The aortic root is normal in size. Pericardium There is no pericardial effusion. <Conclusion> LVEF is 60-65%. Left atrium is mildly dilated. Thrombus is present in the left atrial appendage. Right atrium is mildly dilated. Interatrial septum is intact without evidence of ASD or PFO. [facility] [address] [place] [address] TRANSESOPHAGEAL ECHOCARDIOGRAM Name: MOISES AQUINO Room #: 218-P ADM IN M.R.#: [id number] Admission: 08/16/17 Attend Phys: Markus Luong, Discharge: Date of : 52 Date of Service: 08/19/171518 Report #: [id number] Mild aortic regurgitation. Moderate mitral regurgitation. <ELECTRONICALLY SIGNED> By: Gamaliel Sol MD, FACC 08/19/179 18 18 Gamaliel Sol MD, FACC /INF
[~2017-08-16 06:05] MED LIST changes: +CLEOCIN HCL150 MG PO; +DOXYCYCLINE 10100 MG PO; +ELIQUIS5 MG PO; +KLOR-CON 1010 MEQ PO; +LASIX 40 MG TAB40 M2 PO; +LEVAQUIN 250 M250 MG PO; +OXYCODONE HCL 55 MG PO; +SOTALOL240 MG PO
[2017-08-16 06:47] LABS: HEMATOCRIT 42.7 % (42.0-52.0); HEMOGLOBIN 14.9 gm/dL (14.0-18.0); MCH 40.5 pg (26.0-34.0); MCHC 34.9 g/dL (28.0-37.0); MCV 115.9 fL (80.0-100.0); RBC 3.68 mil/uL (4.50-6.00); RDW 13.7 % (10.5-14.5); WBC 11.1 thou/uL (4.0-11.0)
[2017-08-16 07:01] LABS: ANION GAP 15 mmol/L (7-16); BUN 13 mg/dL (7-18); CALCIUM 9.4 mg/dL (8.5-10.1); CHLORIDE 99 mmol/L (98-107); CO2 22 mmol/L (21-32); CREATININE 1.1 mg/dL (0.7-1.3); GLUCOSE 150 mg/dL (74-106); SODIUM 136 mmol/L (136-145)
[2017-08-16 07:10] LABS: TROPONIN-I < 0.04 ng/mL (<0.06)
[2017-08-16 07:13] LABS: POTASSIUM 2.8 mmol/L (3.5-5.1)
[2017-08-16 11:50] LABS: BE(vivo) -3.3 mmol/L (-2 to +3); HCO3 18.9 mmol/L (22.0-26.0); PO2 74.2 mmHg (80.0-100.0); pH 7.462 (7.360-7.450); sO2 95.9 % (92.0-98.0)
[2017-08-17 03:16] VITALS: BP 118/80
[2017-08-17 04:32] VITALS: BP 117/75
[2017-08-17 08:00] VITALS: BP 97/61
[2017-08-17 12:10] VITALS: BP 124/64
[2017-08-17 16:05] VITALS: BP 102/54
[2017-08-17 20:00] VITALS: BP 109/71
[2017-08-18 03:39] VITALS: BP 97/61
[2017-08-18 08:06] VITALS: BP 107/66
[2017-08-18 11:05] VITALS: BP 114/69
[2017-08-18 19:52] VITALS: BP 119/61
[2017-08-19 03:48] VITALS: BP 133/67
[2017-08-19 03:56] LABS: CALCIUM 9.1 mg/dL (8.5-10.1); CREATININE 0.9 mg/dL (0.7-1.3); POTASSIUM 3.8 mmol/L (3.5-5.1)
[2017-08-19 04:43] LABS: ABSOLUTE NEUTROPHILS 8.2 thou/uL (1.4-8.2); BASOPHILS 0.4 % (0.0-2.0); EOSINOPHILS 0.9 % (0.0-3.0); HEMATOCRIT 34.6 % (42.0-52.0); LYMPHOCYTES 10.6 % (24.0-44.0); MCH 40.5 pg (26.0-34.0); MCHC 33.9 g/dL (28.0-37.0); MCV 119.5 fL (80.0-100.0); MONOCYTES 8.1 % (1.0-8.0); RDW 14.3 % (10.5-14.5); WBC 10.2 thou/uL (4.0-11.0)
[2017-08-19 04:45] LABS: HEMOGLOBIN 11.7 gm/dL (14.0-18.0); PLATELET COUNT 264 thou/uL (150-400)
[2017-08-19 12:00] VITALS: BP 90/56
[2017-08-19 16:00] VITALS: BP 101/61
[2017-08-19 19:41] VITALS: BP 93/63
[2017-08-19 23:34] VITALS: BP 109/67
[2017-08-20 03:46] LABS: CALCIUM 9.1 mg/dL (8.5-10.1); CREATININE 0.8 mg/dL (0.7-1.3); POTASSIUM 4.2 mmol/L (3.5-5.1)
[2017-08-20 04:10] VITALS: BP 111/69
[2017-08-20 07:19] VITALS: BP 108/77
[2017-08-20 11:52] VITALS: BP 108/75
[2017-08-20 14:59] VITALS: BP 104/61
[2017-08-20 19:54] VITALS: BP 110/61
[2017-08-20 23:59] VITALS: BP 113/74
[2017-08-21 03:46] VITALS: BP 109/65
[2017-08-21] MEDS ORDERED: LOPRESSOR50 PO (08:33)
[2017-08-21] MEDS ORDERED: CARDIZEM CD 30300 M1 PO (08:33)
[2017-08-21] MEDS ORDERED: PACERONE 200 M200 M1 PO (08:33)
[2017-08-21 09:55] VITALS: BP 101/73
[2017-08-21 13:08] VITALS: BP 112/74
[2017-08-21 13:27] VITALS: BP 112/74
[2017-10-07] MEDS ORDERED: PACERONE 200 M200 M1 PO (10:26)
[2018-01-18] MEDS ORDERED: VITAMIN B-6100 MG PO (15:31)
[2018-01-18] MEDS ORDERED: CENTRUM SILVER1 EAC2 PO (15:32)
[2018-01-18] MEDS ORDERED: VITAMIN B-121000 MC3 PO (15:32)
[2018-01-18] MEDS ORDERED: FLONASE 0.05%50 MCG NASAL (16:01)
[2018-01-18] MEDS ORDERED: GABAPENTIN 100100 MG PO (16:02)
== END 2017-08-21 14:00 | disposition home or self-care (01) | DRG 308 ==
LOC: ER 06:05 → EROBS 07:21 → 2N 07:21
PROVIDERS: Emergency Medicine; Family Medicine; Internal Medicine Cardiovascular Disease
PROC: B24BZZ4 Ultrasonography of Heart with Aorta, Transesophageal (ICD-10-PCS; principal; 2017-08-18)
DX: I48.0 Paroxysmal atrial fibrillation (principal); J96.21 Acute and chronic respiratory failure with hypoxia; I50.30 Unspecified diastolic (congestive) heart failure; J44.1 Chronic obstructive pulmonary disease with (acute) exacerbation; I48.92 Unspecified atrial flutter; E78.00 Pure hypercholesterolemia, unspecified; E87.6 Hypokalemia; E78.5 Hyperlipidemia, unspecified; I71.4 Abdominal aortic aneurysm, without rupture; I11.0 Hypertensive heart disease with heart failure; E27.9 Disorder of adrenal gland, unspecified; I87.2 Venous insufficiency (chronic) (peripheral); G47.30 Sleep apnea, unspecified; I51.3 Intracardiac thrombosis, not elsewhere classified; Z93.3 Colostomy status; Z87.891 Personal history of nicotine dependence; Z79.899 Other long term (current) drug therapy; Z82.49 Family history of ischemic heart disease and other diseases of the circulatory system
CPT/HCPCS: 10081

== ENCOUNTER 2017-09-01 13:45 | Inpatient (IN) | payer OTHER ==
[~2017-09-01] VITALS: Ht 185.4 cm; Wt 83.5 kg
--- NOTE | ~2017-09-01 | EKG ---
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 Offbearer: [facility] : 1950 Requested By: Lit Chaney Order Number: [id number] MD: Amarjit Méndez Measurements Intervals [place] Rate: 75 P: -76 HI: 245 QRS: -71 QRSD: 124 T: 81 QT: 432 QTc: 483 Interpretive Statements Sinus or ectopic atrial rhythm Prolonged [place] interval Nonspecific IVCD with LAD Compared to ECG 08/21/2017 11:12:51 Ectopic atrial rhythm now present Sinus rhythm no longer present Left anterior fascicular block no longer present Electronically Signed On 09-01-2017 15:07:31 AIR TRAFFIC CONTROL SPECIALIST [facility]ENTER by Amarjit Méndez [email or web address] <ELECTRONICALLY SIGNED> By: Amarjit Méndez MD 09/01/17 1507 1456 1456 Amarjit Méndez MD /[facility]
[~2017-09-01 13:45] MED LIST changes: +CARDIZEM CD 30300 M1 PO; +LOPRESSOR50 PO; +PACERONE 200 M200 M1 PO
[2017-09-01 13:46] VITALS: BP 142/70
[2017-09-01 14:37] LABS: HEMATOCRIT 38.7 % (42.0-52.0); HEMOGLOBIN 13.2 gm/dL (14.0-18.0); MCH 39.3 pg (26.0-34.0); MCHC 34.2 g/dL (28.0-37.0); MCV 115.1 fL (80.0-100.0); RBC 3.37 mil/uL (4.50-6.00); RDW 14.7 % (10.5-14.5); WBC 11.1 thou/uL (4.0-11.0)
[2017-09-01 15:16] LABS: ANION GAP 11 mmol/L (7-16); BUN 19 mg/dL (7-18); CALCIUM 9.1 mg/dL (8.5-10.1); CHLORIDE 94 mmol/L (98-107); CO2 23 mmol/L (21-32); CREATININE 1.1 mg/dL (0.7-1.3); GLUCOSE 108 mg/dL (74-106); POTASSIUM 3.7 mmol/L (3.5-5.1); SODIUM 128 mmol/L (136-145)
[2017-09-01 15:24] LABS: ALBUMIN 3.5 g/dL (3.4-5.0); SGOT 18 U/L (15-37); SGPT 23 U/L (30-65); TOTAL BILIRUBIN 0.2 mg/dL (<0.1-1.0); TOTAL PROTEIN 6.9 g/dL (6.4-8.2); TROPONIN-I < 0.04 ng/mL (<0.06)
[2017-09-01 18:17] VITALS: BP 121/64
[2017-09-01 19:06] VITALS: BP 124/66
[2017-09-01 23:35] VITALS: BP 118/52
[2017-09-02 03:04] VITALS: BP 104/59
[2017-09-02 04:33] LABS: HEMATOCRIT 35.3 % (42.0-52.0); HEMOGLOBIN 12.3 gm/dL (14.0-18.0); MCHC 34.8 g/dL (28.0-37.0); MCV 114.9 fL (80.0-100.0); RBC 3.08 mil/uL (4.50-6.00); RDW 14.3 % (10.5-14.5); WBC 10.3 thou/uL (4.0-11.0)
[2017-09-02 04:51] LABS: CALCIUM 8.9 mg/dL (8.5-10.1); CREATININE 0.8 mg/dL (0.7-1.3); POTASSIUM 3.5 mmol/L (3.5-5.1)
[2017-09-02 08:00] VITALS: BP 105/62
[2017-09-02 15:59] VITALS: BP 120/57
[2017-09-02 19:31] VITALS: BP 132/64
[2017-09-03 03:44] LABS: CALCIUM 8.8 mg/dL (8.5-10.1); CREATININE 0.9 mg/dL (0.7-1.3); POTASSIUM 3.6 mmol/L (3.5-5.1)
[2017-09-03 05:00] VITALS: BP 109/69
[2017-09-03 08:11] VITALS: BP 98/53
[2017-09-03 16:15] VITALS: BP 98/61
[2017-09-03 19:36] VITALS: BP 90/60
[2017-09-04 03:46] VITALS: BP 94/62
[2017-09-04 05:06] LABS: CALCIUM 8.4 mg/dL (8.5-10.1); CREATININE 0.7 mg/dL (0.7-1.3); POTASSIUM 3.5 mmol/L (3.5-5.1)
[2017-09-04 08:33] VITALS: BP 102/53
[2017-09-04 16:18] VITALS: BP 90/57
[2017-09-04 19:45] VITALS: BP 108/57
[2017-09-05 04:10] VITALS: BP 110/72
[2017-09-05 08:15] VITALS: BP 111/68
[2017-09-05 15:46] VITALS: BP 111/68
[2017-09-05 15:50] VITALS: BP 111/68
[2017-09-06 13:34] VITALS: BP 111/68
[2017-09-06 15:05] VITALS: BP 111/68
[2017-10-07] MEDS ORDERED: PACERONE 200 M200 M1 PO (10:26)
[2018-01-18] MEDS ORDERED: VITAMIN B-6100 MG PO (15:31)
[2018-01-18] MEDS ORDERED: CENTRUM SILVER1 EAC2 PO (15:32)
[2018-01-18] MEDS ORDERED: VITAMIN B-121000 MC3 PO (15:32)
[2018-01-18] MEDS ORDERED: FLONASE 0.05%50 MCG NASAL (16:01)
[2018-01-18] MEDS ORDERED: GABAPENTIN 100100 MG PO (16:02)
== END 2017-09-05 18:33 | disposition home health service (06) | DRG 640 ==
LOC: ER 13:45 → 4S 15:56 → EROBS 15:56 → 4S 17:41
PROVIDERS: Emergency Medicine; Hospitalist
DX: E87.1 Hypo-osmolality and hyponatremia (principal); N17.0 Acute kidney failure with tubular necrosis; J44.9 Chronic obstructive pulmonary disease, unspecified; I95.1 Orthostatic hypotension; I10 Essential (primary) hypertension; I48.0 Paroxysmal atrial fibrillation; D47.3 Essential (hemorrhagic) thrombocythemia; Z93.3 Colostomy status; Z87.891 Personal history of nicotine dependence
CPT/HCPCS: 10100

== ENCOUNTER 2017-09-15 15:46 | Emergency (ER) | payer OTHER ==
[~2017-09-15] VITALS: Ht 182.9 cm; Wt 83.5 kg
--- NOTE | ~2017-09-15 | EKG ---
[place] [address] [facility] [employer] [place] [address] ELECTROCARDIOGRAM REPORT Name: KENIAMOISES Jordy Room #: [facility]#: [id number] Admission: 09/15/17 Attend Phys: Discharge: Date of : 52 Report #: [id number] THIS REPORT FOR: //name// [facility] ED Test Date: 2017-09-15 Test Time: 16:14:37 Pat Name: MOISES AQUINO Department: Room: Gender: Radio Tester: JUSTUS : 1950 Requested By: Judi Forte Order Number: [id number] MD: Amarjit Méndez Measurements Intervals [place] Rate: 72 P: -56 VT: 211 QRS: -63 QRSD: 136 T: 81 QT: 456 QTc: 500 Interpretive Statements Sinus or ectopic atrial rhythm Consider left atrial enlargement INTRAVENTRICULAR CONDUCTION DELAY with LAFB Artifact V3 Electronically Signed On 09-15-2017 16:56:32 STRUCTURAL ENGINEERING DRAFTING OFFICER by Amarjit Méndez [email or web address] <ELECTRONICALLY SIGNED> By: Amarjit Méndez MD 09/15/17 1656 1614 1614 MD WILL Dawson
[2017-09-15 16:23] LABS: HEMOGLOBIN 11.8 gm/dL (14.0-18.0); MCH 37.8 pg (26.0-34.0); MCHC 32.9 g/dL (28.0-37.0); MCV 115.1 fL (80.0-100.0); PLATELET COUNT 377 thou/uL (150-400); RBC 3.13 mil/uL (4.50-6.00); RDW 15.9 % (10.5-14.5); WBC 7.8 thou/uL (4.0-11.0)
[2017-09-15 16:23] LABS: URINE BILIRUBIN NEGATIVE (Negative); URINE BLOOD NEGATIVE (Negative); URINE CLARITY CLEAR; URINE COLOR YELLOW; URINE GLUCOSE-RANDOM* NEGATIVE (Negative); URINE KETONES NEGATIVE (Negative); URINE LEUKOCYTES NEGATIVE (Negative); URINE NITRITE NEGATIVE (Negative); URINE PROTEIN (DIPSTICK) NEGATIVE (Negative); URINE UROBILINOGEN 0.2 E.U./dl (0.2-1.0)
[2017-09-15 16:39] LABS: BUN 37 mg/dL (7-18); CALCIUM 9.1 mg/dL (8.5-10.1); CO2 24 mmol/L (21-32); CREATININE 1.6 mg/dL (0.7-1.3); GLUCOSE 116 mg/dL (74-106); SGOT 24 U/L (15-37); SGPT 21 U/L (30-65); TOTAL BILIRUBIN 0.4 mg/dL (<0.1-1.0); TOTAL PROTEIN 6.6 g/dL (6.4-8.2); TROPONIN-I < 0.04 ng/mL (<0.06)
[2017-09-15 16:48] LABS: ABSOLUTE NEUTROPHILS 5.9 thou/uL (1.4-8.2)
[2017-09-15 16:50] LABS: INR 1.1
[2017-09-15 16:54] LABS: ALBUMIN 3.2 g/dL (3.4-5.0); ANION GAP 13 mmol/L (7-16); CHLORIDE 99 mmol/L (98-107); POTASSIUM 4.6 mmol/L (3.5-5.1); SODIUM 136 mmol/L (136-145)
[2017-09-15 21:01] VITALS: BP 111/64
[2017-10-07] MEDS ORDERED: PACERONE 200 M200 M1 PO (10:26)
[2018-01-18] MEDS ORDERED: VITAMIN B-6100 MG PO (15:31)
[2018-01-18] MEDS ORDERED: VITAMIN B-121000 MC3 PO (15:32)
[2018-01-18] MEDS ORDERED: CENTRUM SILVER1 EAC2 PO (15:32)
[2018-01-18] MEDS ORDERED: FLONASE 0.05%50 MCG NASAL (16:01)
[2018-01-18] MEDS ORDERED: GABAPENTIN 100100 MG PO (16:02)
== END 2017-09-15 21:03 | disposition home or self-care (01) ==
LOC: ER 15:46
PROVIDERS: Physician Assistant
DX: I95.9 Hypotension, unspecified (principal); I71.4 Abdominal aortic aneurysm, without rupture; N17.9 Acute kidney failure, unspecified; E86.0 Dehydration; T78.8XXA Other adverse effects, not elsewhere classified, initial encounter; J44.9 Chronic obstructive pulmonary disease, unspecified; Z87.891 Personal history of nicotine dependence; X58.XXXA Exposure to other specified factors, initial encounter

== ENCOUNTER 2017-09-24 07:30 | Inpatient (IN) | payer OTHER ==
[~2017-09-24] VITALS: Ht 185.4 cm; Wt 85.7 kg
--- NOTE | ~2017-09-24 | HC ---
[facility] [place] [address] CONSULTATION Name: MOISES AQUINO [facility]: 431-[facility] IN M.R.#: [id number] Admission: 09/24/17 Attend Phys: Tom Mazariegos MD Discharge: 09/28/17 Date of : 52 Report #: [id number] THIS REPORT FOR: //name// CC: FAM unknown Tom Mazariegos DATE OF SERVICE: 09/26/2017 REASON FOR CONSULTATION: Pneumothorax. IMPRESSION: 1. Pneumothorax, status post fall. 2. Chronic obstructive pulmonary disease. 3. Atrial fibrillation. 4. Hypertension. PLAN: 1. Chest tube. 2. Aerosol. 3. Hold anticoagulation. HISTORY OF PRESENT ILLNESS: A 67-year-old male with history of COPD and AFib, recently in the hospital, relates he had a fall injuring his right chest, found to have pneumothorax and admitted. We reviewed his x-rays and pneumothorax has not decreased in size. ALLERGIES: No known. MEDICATIONS: Had included albuterol, Spiriva and Advair. PAST SURGICAL HISTORY: Surgeries in the past included ostomy with reversal in 80s for perforation. FAMILY HISTORY: Noncontributory. SOCIAL HISTORY: Positive tobacco in the past. Positive ETOH and negative drugs of abuse. REVIEW OF SYSTEMS: Positive shortness of breath and cough. No fever or chills. No night sweats. Some right chest wall pain. PHYSICAL EXAMINATION: VITAL SIGNS: Temperature 98, pulse 75, respirations 18 and BP 107/57. EYES: Negative icterus. NECK: Trachea midline. LUNGS: Decreased. No rhonchi. [facility] [address] [place] [address] CONSULTATION Name: MOISES AQUINO Room #: 431-P DIS IN M.R.#: [id number] Admission: 09/24/17 Attend Phys: Tom Mazariegos MD Discharge: 09/28/17 Date of : 52 Report #: [id number] HEART: Irregular. ABDOMEN: Bowel sounds present. EXTREMITIES: Showed no clubbing. We will follow closely with you. <ELECTRONICALLY SIGNED> By: Yuri Vargas MD 09/28/17 2219 1934 0435 Yuri Vargas MD /nt
--- NOTE | ~2017-09-24 | EKG ---
[address] [address] ELECTROCARDIOGRAM REPORT Name: MOISES AQUINO Room #: 431-P ADM IN M.R.#: [id number] Admission: 09/24/17 Attend Phys: Tom Mazariegos MD Discharge: Date of : 52 Report #: [id number] THIS REPORT FOR: //name// [facility] ED Test Date: 2017-09-24 Test Time: 07:35:32 Pat Name: MOISES AQUINO Department: Room: [facility] Gender: M Biztalk Developer: jose alejandro abraham : 1950 Requested By: Jagruti Early Order Number: [id number] MD: Prashant Evans Measurements Intervals [place] Rate: 104 P: MT: QRS: -64 QRSD: 143 T: 92 QT: 449 QTc: 591 Interpretive Statements Probable sinus tachycardia Left bundle branch block Compared to ECG 09/15/2017 16:14:37 No significant change was found Electronically Signed On 09-25-2017 11:26:32 NETWORK CONTRACTOR by Prashant Evans [email or web address] <ELECTRONICALLY SIGNED> By: Prashant Evans MD, [facility] 09/25/17 1126 4 4 Prashant Evans MD, [facility] /EPI
[2017-09-24 07:40] VITALS: BP 153/87
[2017-09-24 08:44] LABS: HEMATOCRIT 35.4 % (42.0-52.0); HEMOGLOBIN 11.7 gm/dL (14.0-18.0); MCH 37.4 pg (26.0-34.0); MCV 113.2 fL (80.0-100.0); PLATELET COUNT 392 thou/uL (150-400); RBC 3.13 mil/uL (4.50-6.00); RDW 15.8 % (10.5-14.5); WBC 12.2 thou/uL (4.0-11.0)
[2017-09-24 08:53] LABS: ANION GAP 7 mmol/L (7-16); BUN 13 mg/dL (7-18); CALCIUM 8.4 mg/dL (8.5-10.1); CHLORIDE 103 mmol/L (98-107); CO2 26 mmol/L (21-32); CREATININE 0.7 mg/dL (0.7-1.3); GLUCOSE 117 mg/dL (74-106); POTASSIUM 4.3 mmol/L (3.5-5.1); SODIUM 136 mmol/L (136-145)
[2017-09-24 09:02] LABS: TROPONIN-I < 0.04 ng/mL (<0.06)
[2017-09-24 09:18] LABS: ABSOLUTE NEUTROPHILS 11.6 thou/uL (1.4-8.2); ANISOCYTOSIS 2+; MACROCYTES 2+; POLYCHROMASIA OCCASIONAL
[2017-09-24 09:19] LABS: HYPOCHROMASIA SLIGHT
[2017-09-24 09:27] VITALS: BP 120/72
[2017-09-24 09:58] VITALS: BP 130/82
[2017-09-24 20:04] VITALS: BP 137/88
[2017-09-25 04:11] LABS: CALCIUM 8.6 mg/dL (8.5-10.1); CREATININE 0.8 mg/dL (0.7-1.3); POTASSIUM 4.1 mmol/L (3.5-5.1)
[2017-09-25 04:53] VITALS: BP 121/74
[2017-09-25 05:16] LABS: HEMOGLOBIN 10.5 gm/dL (14.0-18.0); MCH 38.3 pg (26.0-34.0); MCV 112.7 fL (80.0-100.0); RBC 2.75 mil/uL (4.50-6.00); RDW 15.6 % (10.5-14.5); WBC 10.7 thou/uL (4.0-11.0)
[2017-09-25 07:55] VITALS: BP 123/72
[2017-09-25 16:24] VITALS: BP 126/76
[2017-09-25 20:40] VITALS: BP 122/69
[2017-09-26 05:20] VITALS: BP 108/78
[2017-09-26 08:01] VITALS: BP 107/57
[2017-09-26 10:40] VITALS: BP 107/57
[2017-09-26 15:15] VITALS: BP 99/53
[2017-09-26 19:41] VITALS: BP 114/67
[2017-09-27 04:44] VITALS: BP 107/62
[2017-09-27 07:45] VITALS: BP 125/66
[2017-09-27 08:30] VITALS: BP 125/66
[2017-09-27 12:15] VITALS: BP 102/64
[2017-09-27 15:40] VITALS: BP 107/69
[2017-09-27 20:51] VITALS: BP 103/60
[2017-09-28 04:57] VITALS: BP 125/71
[2017-09-28 07:20] VITALS: BP 106/64
[2017-09-28] MEDS ORDERED: MELATONIN5 M1 PO (10:25)
[2017-09-28] MEDS ORDERED: PACERONE 200 M200 M1 PO (10:25)
[2017-09-28 14:15] VITALS: BP 106/64
[2017-10-07] MEDS ORDERED: PACERONE 200 M200 M1 PO (10:26)
[2018-01-18] MEDS ORDERED: VITAMIN B-6100 MG PO (15:31)
[2018-01-18] MEDS ORDERED: VITAMIN B-121000 MC3 PO (15:32)
[2018-01-18] MEDS ORDERED: CENTRUM SILVER1 EAC2 PO (15:32)
[2018-01-18] MEDS ORDERED: FLONASE 0.05%50 MCG NASAL (16:01)
[2018-01-18] MEDS ORDERED: GABAPENTIN 100100 MG PO (16:02)
== END 2017-09-28 16:02 | disposition home or self-care (01) | DRG 199 ==
LOC: ER 07:30 → EROBS 09:06 → 4E 09:06 → ENTRNSPT 09-28 15:47 → EDTRNSPTSTS 09-28 15:49 → 4E 09-28 16:02
PROVIDERS: Emergency Medicine; Hospitalist
PROC: 0W9930Z Drainage of Right Pleural Cavity with Drainage Device, Percutaneous Approach (ICD-10-PCS; principal; 2017-09-26)
DX: J93.83 Other pneumothorax (principal); J96.00 Acute respiratory failure, unspecified whether with hypoxia or hypercapnia; J44.9 Chronic obstructive pulmonary disease, unspecified; I10 Essential (primary) hypertension; E78.5 Hyperlipidemia, unspecified; I48.91 Unspecified atrial fibrillation; Z79.01 Long term (current) use of anticoagulants; Z87.891 Personal history of nicotine dependence; Z93.3 Colostomy status
CPT/HCPCS: 10183

== ENCOUNTER → 2017-10-07 | Outpatient (CLI) | payer OTHER ==
[~2017-10-07] VITALS: Ht 182.9 cm; Wt 83.9 kg
[~2017-10-07] MED LIST changes: +BAYER CHEWABLE81 MG PO; +CENTRUM SILVER1 EAC2 PO; +COLACE100 MG PO; +COMBIVENT RESPIM4 GM; +GABAPENTIN 100100 MG PO; +INCRUSE ELLI62.5 MCG PO; +LEVAQUIN 500 M500 M2 PO; +MELATONIN5 M1 PO; +MUCINEX600 MG PO; +OXYCODONE HCL10 MG PO; +POTASSIUM20 PO; +PREDNISONE 10 M10 MG PO; +PROBIOTIC1 EAC1 PO; +PROTONIX40 M1 PO; +PULMICORT0.5 MG/22 INH; +VITAMIN B-121000 MC3 PO; +VITAMIN B-6100 MG PO; +VOLTAREN GEL 1100 G2 TOP
[2017-10-07 09:48] VITALS: BP 121/68
== END ==
LOC: SEN 09:03
DX: I48.0 Paroxysmal atrial fibrillation (principal); I48.92 Unspecified atrial flutter; J44.9 Chronic obstructive pulmonary disease, unspecified; J93.11 Primary spontaneous pneumothorax; R53.81 Other malaise; Z87.891 Personal history of nicotine dependence

== ENCOUNTER → 2017-10-26 | Outpatient (CLI) | payer OTHER | LOC: RAD 11:52 | DX: J44.9 Chronic obstructive pulmonary disease, unspecified (principal) ==

== ENCOUNTER 2017-10-27 09:53 | Inpatient (IN) | payer OTHER ==
[~2017-10-27] VITALS: Ht 182.9 cm; Wt 84.3 kg
--- NOTE | ~2017-10-27 | HC ---
[facility] [place] [address] CONSULTATION Name: MOISES AQUINO Room #: 444-P [facility] IN M.R.#: [id number] Admission: 10/27/17 Attend Phys: Markus Luong DO Discharge: 10/30/17 Date of : 52 Report #: [id number] THIS REPORT FOR: //name// CC: FAM unknown Markus Luong DATE OF SERVICE: 10/27/2017 REASON FOR CONSULTATION: Pneumonia. IMPRESSION: 1. Pneumonia, healthcare associated. 2. Chronic obstructive pulmonary disease. 3. Debilitation, question etiology. 4. Fall. 5. History of atrial fibrillation. 6. Recent pneumothorax, traumatic. HISTORY OF PRESENT ILLNESS: A 67-year-old male, saw Dr. Pizano yesterday, was not feeling well, but chest x-ray was done, did not show obvious change. Today, when he woke up, got up and legs were very weak and he fell to the ground. Did not strike his head. relates he looked paler this morning. He denies any definite cough or sputum production or chest pain. In fact, when I showed him the x-ray, he did not feel like he had pneumonia. ALLERGIES: No known. PAST SURGICAL HISTORY: Include ostomy for bowel perforation with reversal. SOCIAL HISTORY: Positive tobacco in past and ETOH, negative drugs of abuse. is with him. FAMILY HISTORY: Noncontributory. REVIEW OF SYSTEMS: No fever or chills. No night sweats. No chest pain, some cough, some shortness of breath. Positive weakness. No palpitations. PHYSICAL EXAMINATION: VITAL SIGNS: Temp 99.1, pulse 103, respiratory rate 18, BP 114/62. LUNGS: Coarse, left greater than right. HEART: Regular. ABDOMEN: Bowel sounds present. EXTREMITIES: Showed no edema or calf tenderness, moved all extremities. NEUROLOGIC: Alert and oriented. Trachea midline. LABORATORY DATA: Lactate 1.9. White count 14, hemoglobin 12.4, platelets 284. [address] [address] CONSULTATION Name: MOISES AQUINO Room #: 444-[facility] IN .R.#: [id number] Admission: 10/27/17 Attend Phys: Markus Luong DO Discharge: 10/30/17 Date of : 52 Report #: [id number] spine, please see report. Chest x-ray showed obvious left lower lobe infiltrate. BNP 412, BUN 13, creatinine 1. Currently, on Levaquin, vancomycin, meds adjusted. We will follow closely with you. <ELECTRONICALLY SIGNED> By: Yuri Vargas MD 11/17/17 1054 2037 0024 Yuri Vargas MD /nt
--- NOTE | ~2017-10-27 | EKG ---
[place] [address] [facility] [address] ELECTROCARDIOGRAM REPORT Name: NATI AQUINOEN Jordy Room #: 444-P ADM IN M.R.#: [id number] Admission: 10/27/17 Attend Phys: Markus Luong DO Discharge: Date of : 52 Report #: [id number] THIS REPORT FOR: //name// [facility] ED Test Date: 2017-10-27 Test Time: 10:23:38 Pat Name: MOISES AQUINO Department: Room: 444 Gender: M Time Checker: JUSTUS : 1950 Requested By: Judi Forte Order Number: [id number] MD: Prashant Evans Measurements Intervals [place] Rate: 87 P: -65 DC: 221 QRS: -59 QRSD: 126 T: 73 QT: 385 QTc: 463 Interpretive Statements Sinus rhythm First degree AV block Nonspecific IVCD with LAD Left ventricular hypertrophy Baseline wander in lead(s) I Compared to ECG 09/24/2017 07:35:32 Probably no significant differences Electronically Signed On 10-28-2017 7:52:46 ACUTE CARE NURSE by Prashant Evans [email or web address] <ELECTRONICALLY SIGNED> By: Prashant Evans MD, [facility] 10/28/17 0752 1023 1023 Prashant Evans MD, [facility] /EPI
[~2017-10-27 09:53] MED LIST changes: -BAYER CHEWABLE81 MG PO; -CENTRUM SILVER1 EAC2 PO; -COLACE100 MG PO; -COMBIVENT RESPIM4 GM; -GABAPENTIN 100100 MG PO; -INCRUSE ELLI62.5 MCG PO; -LEVAQUIN 500 M500 M2 PO; -MUCINEX600 MG PO; -OXYCODONE HCL10 MG PO; -POTASSIUM20 PO; -PREDNISONE 10 M10 MG PO; -PROBIOTIC1 EAC1 PO; -PROTONIX40 M1 PO; -PULMICORT0.5 MG/22 INH; -VITAMIN B-121000 MC3 PO; -VITAMIN B-6100 MG PO; -VOLTAREN GEL 1100 G2 TOP
[2017-10-27 10:18] VITALS: BP 109/69
[2017-10-27 10:23] LABS: ABSOLUTE NEUTROPHILS 13.4 thou/uL (1.4-8.2); BASOPHILS 0.2 % (0.0-2.0); HEMATOCRIT 37.7 % (42.0-52.0); HEMOGLOBIN 12.4 gm/dL (14.0-18.0); LYMPHOCYTES 1.2 % (24.0-44.0); MCH 35.4 pg (26.0-34.0); MCV 107.5 fL (80.0-100.0); MONOCYTES 3.8 % (1.0-8.0); PLATELET COUNT 284 thou/uL (150-400); POLYS 94.8 % (36.0-66.0); RBC 3.51 mil/uL (4.50-6.00); RDW 17.4 % (10.5-14.5); WBC 14.2 thou/uL (4.0-11.0)
[2017-10-27 10:33] LABS: ANION GAP 9 mmol/L (7-16); BUN 13 mg/dL (7-18); CALCIUM 9.2 mg/dL (8.5-10.1); CHLORIDE 98 mmol/L (98-107); CO2 25 mmol/L (21-32); GLUCOSE 101 mg/dL (74-106); POTASSIUM 4.8 mmol/L (3.5-5.1); SODIUM 132 mmol/L (136-145)
[2017-10-27 10:41] LABS: ALBUMIN 3.1 g/dL (3.4-5.0); SGOT 15 U/L (15-37); SGPT 20 U/L (30-65); TOTAL BILIRUBIN 0.5 mg/dL (<0.1-1.0); TROPONIN-I < 0.04 ng/mL (<0.06)
[2017-10-27 11:35] LABS: ANISOCYTOSIS 2+; MACROCYTES 1+; PLATELET ESTIMATE NORMAL; SCHISTOCYTES OCCASIONAL
[2017-10-27 11:43] LABS: URINE BILIRUBIN 1+ (Negative); URINE BLOOD TRACE (Negative); URINE CLARITY CLEAR; URINE COLOR YELLOW; URINE GLUCOSE-RANDOM* NEGATIVE (Negative); URINE KETONES TRACE (Negative); URINE LEUKOCYTES NEGATIVE (Negative); URINE NITRITE NEGATIVE (Negative); URINE PROTEIN (DIPSTICK) 1+ (Negative); URINE SPECIFIC GRAVITY >= 1.030 (1.005-1.035); URINE UROBILINOGEN 0.2 E.U./dl (0.2-1.0)
[2017-10-27 11:48] LABS: ICTOTEST (BILI CONFIRMATORY) Negative (Negative)
[2017-10-27 11:49] LABS: BACTERIA 1-9 Few /HPF (None Seen); CRYSTALS None Seen /LPF (None Seen); HYALINE CASTS 0-3 Few /LPF (None Seen); SQUAMOUS None Seen /LPF (0-3); URINE RBC 0-2 Rare /HPF (0-2); URINE WBC 0-5 Rare /HPF (0-5)
[2017-10-27 17:00] VITALS: BP 106/68
[2017-10-27 19:19] VITALS: BP 114/62
[2017-10-28 04:46] VITALS: BP 102/65
[2017-10-28 05:50] LABS: ABSOLUTE NEUTROPHILS 8.1 thou/uL (1.4-8.2); BASOPHILS 0.1 % (0.0-2.0); EOSINOPHILS 0.2 % (0.0-3.0); HEMATOCRIT 29.6 % (42.0-52.0); LYMPHOCYTES 5.1 % (24.0-44.0); MCH 35.9 pg (26.0-34.0); MCHC 33.4 g/dL (28.0-37.0); MCV 107.2 fL (80.0-100.0); PLATELET COUNT 228 thou/uL (150-400); POLYS 86.6 % (36.0-66.0); RBC 2.76 mil/uL (4.50-6.00); RDW 16.7 % (10.5-14.5); WBC 9.4 thou/uL (4.0-11.0)
[2017-10-28 05:58] LABS: CALCIUM 8.3 mg/dL (8.5-10.1); CREATININE 0.8 mg/dL (0.7-1.3)
[2017-10-28 06:02] LABS: POTASSIUM 3.8 mmol/L (3.5-5.1)
[2017-10-28 06:04] LABS: HEMOGLOBIN 9.9 gm/dL (14.0-18.0)
[2017-10-28 08:00] VITALS: BP 110/60
[2017-10-28 16:00] VITALS: BP 102/59
[2017-10-28 19:25] VITALS: BP 96/53
[2017-10-29 05:56] LABS: ABSOLUTE NEUTROPHILS 4.9 thou/uL (1.4-8.2); BASOPHILS 0.4 % (0.0-2.0); HEMATOCRIT 27.5 % (42.0-52.0); HEMOGLOBIN 9.3 gm/dL (14.0-18.0); LYMPHOCYTES 8.6 % (24.0-44.0); MCH 36.2 pg (26.0-34.0); MCHC 33.8 g/dL (28.0-37.0); MCV 107.1 fL (80.0-100.0); PLATELET COUNT 206 thou/uL (150-400); RBC 2.57 mil/uL (4.50-6.00)
[2017-10-29 06:03] LABS: CALCIUM 8.1 mg/dL (8.5-10.1); CREATININE 0.8 mg/dL (0.7-1.3); POTASSIUM 3.6 mmol/L (3.5-5.1)
[2017-10-29 08:14] VITALS: BP 107/68
[2017-10-29 16:14] VITALS: BP 116/76
[2017-10-29 19:47] VITALS: BP 102/64
[2017-10-30] VITALS (7 sets, daily range): BP systolic 113–127; BP diastolic 70–77
[2017-10-30] MEDS ORDERED: LEVAQUIN 500 M500 M2 PO (12:10)
[2017-10-30] MEDS ORDERED: PROTONIX40 M1 PO (12:11)
[2017-10-31 00:57] VITALS: BP 127/77
[2017-10-31 10:40] VITALS: BP 127/77
[2018-01-18] MEDS ORDERED: VITAMIN B-6100 MG PO (15:31)
[2018-01-18] MEDS ORDERED: VITAMIN B-121000 MC3 PO (15:32)
[2018-01-18] MEDS ORDERED: CENTRUM SILVER1 EAC2 PO (15:32)
[2018-01-18] MEDS ORDERED: FLONASE 0.05%50 MCG NASAL (16:01)
[2018-01-18] MEDS ORDERED: GABAPENTIN 100100 MG PO (16:02)
== END 2017-10-30 20:00 | disposition home health service (06) | DRG 177 ==
LOC: ER 09:53 → 4S 11:36 → EROBS 11:36 → 4S 18:37
PROVIDERS: Family Medicine; Physician Assistant
DX: J69.0 Pneumonitis due to inhalation of food and vomit (principal); J96.00 Acute respiratory failure, unspecified whether with hypoxia or hypercapnia; E87.1 Hypo-osmolality and hyponatremia; J44.0 Chronic obstructive pulmonary disease with (acute) lower respiratory infection; J44.1 Chronic obstructive pulmonary disease with (acute) exacerbation; I48.91 Unspecified atrial fibrillation; Z93.3 Colostomy status; Z87.891 Personal history of nicotine dependence; Z79.899 Other long term (current) drug therapy; Z90.49 Acquired absence of other specified parts of digestive tract
CPT/HCPCS: 10100

== ENCOUNTER 2017-11-09 08:49 | Emergency (ER) | payer OTHER ==
[~2017-11-09] VITALS: Ht 182.9 cm; Wt 81.7 kg
--- NOTE | ~2017-11-09 | EKG ---
[facility] [place] [address] ELECTROCARDIOGRAM REPORT Name: MOISES AQUINO Room #: [facility]#: [id number] Admission: 11/09/17 Attend Phys: Discharge: Date of : 52 Report #: [id number] THIS REPORT FOR: //name// [facility] ED Test Date: 2017-11-09 Test Time: 10:02:03 Pat Name: MOISES AQUINO Department: Room: Gender: Neurodiagnostic Technician: JUSTUS : 1950 Requested By: Judi Forte Order Number: [id number] MD: Prashant Evans Measurements Intervals [place] Rate: 53 P: -50 OR: 215 QRS: -48 QRSD: 129 T: 17 QT: 478 QTc: 449 Interpretive Statements Sinus rhythm Borderline prolonged OR interval Nonspecific IVCD with LAD Compared to ECG 10/27/2017 10:23:38 No significant change was found Electronically Signed On 11-09-2017 15:05:18 CDT by Prashant Evans [email or web address] <ELECTRONICALLY SIGNED> By: Prashant Evans MD, [facility] 11/09/17 1505 1002 1002 Prashant Evans MD, FACC /EPI
[~2017-11-09 08:49] MED LIST changes: +LEVAQUIN 500 M500 M2 PO; +PROTONIX40 M1 PO
[2017-11-09 09:45] LABS: URINE BILIRUBIN NEGATIVE (Negative); URINE BLOOD NEGATIVE (Negative); URINE CLARITY CLEAR; URINE COLOR YELLOW; URINE GLUCOSE-RANDOM* NEGATIVE (Negative); URINE KETONES NEGATIVE (Negative); URINE LEUKOCYTES NEGATIVE (Negative); URINE NITRITE NEGATIVE (Negative); URINE PROTEIN (DIPSTICK) NEGATIVE (Negative); URINE UROBILINOGEN 0.2 E.U./dl (0.2-1.0)
[2017-11-09 09:46] LABS: HEMATOCRIT 30.8 % (42.0-52.0); HEMOGLOBIN 10.5 gm/dL (14.0-18.0); MCH 35.8 pg (26.0-34.0); MCHC 34.2 g/dL (28.0-37.0); MCV 104.7 fL (80.0-100.0); PLATELET COUNT 492 thou/uL (150-400); RBC 2.94 mil/uL (4.50-6.00); RDW 17.9 % (10.5-14.5); WBC 7.8 thou/uL (4.0-11.0)
[2017-11-09 09:52] LABS: PROTIME 10.4 Seconds (9.3-11.4)
[2017-11-09 10:17] LABS: ABSOLUTE NEUTROPHILS 6.7 thou/uL (1.4-8.2); ANISOCYTOSIS 1+; MACROCYTES 1+; PLATELET ESTIMATE INCREASED
[2017-11-09 10:47] LABS: ALBUMIN 2.6 g/dL (3.4-5.0); ANION GAP 6 mmol/L (7-16); BUN 18 mg/dL (7-18); CHLORIDE 103 mmol/L (98-107); CO2 28 mmol/L (21-32); CREATININE 0.8 mg/dL (0.7-1.3); GLUCOSE 101 mg/dL (74-106); SGOT 17 U/L (15-37); SGPT 24 U/L (30-65); SODIUM 137 mmol/L (136-145); TOTAL BILIRUBIN 0.3 mg/dL (<0.1-1.0); TOTAL PROTEIN 5.9 g/dL (6.4-8.2); TROPONIN-I < 0.04 ng/mL (<0.06)
[2017-11-09 12:46] VITALS: BP 120/63
[2018-01-18] MEDS ORDERED: VITAMIN B-6100 MG PO (15:31)
[2018-01-18] MEDS ORDERED: VITAMIN B-121000 MC3 PO (15:32)
[2018-01-18] MEDS ORDERED: CENTRUM SILVER1 EAC2 PO (15:32)
[2018-01-18] MEDS ORDERED: FLONASE 0.05%50 MCG NASAL (16:01)
[2018-01-18] MEDS ORDERED: GABAPENTIN 100100 MG PO (16:02)
== END 2017-11-09 12:43 ==
LOC: ER 08:49
PROVIDERS: Physician Assistant
DX: I62.00 Nontraumatic subdural hemorrhage, unspecified (principal); M54.9 Dorsalgia, unspecified; J44.9 Chronic obstructive pulmonary disease, unspecified; I10 Essential (primary) hypertension; M19.90 Unspecified osteoarthritis, unspecified site; I71.4 Abdominal aortic aneurysm, without rupture; Z79.01 Long term (current) use of anticoagulants; Z87.891 Personal history of nicotine dependence; W18.39XA Other fall on same level, initial encounter; Y93.89 Activity, other specified; Y92.89 Other specified places as the place of occurrence of the external cause; Y99.8 Other external cause status

== ENCOUNTER 2017-11-24 17:11 | Inpatient (IN) | payer OTHER ==
[~2017-11-24] VITALS: Ht 185.4 cm; Wt 74.8 kg
--- NOTE | ~2017-11-24 | HC ---
[facility] [place] [address] CONSULTATION Name: MOISES AQUINO Room #: 510-P [facility] IN M.R.#: [id number] Admission: 11/24/17 Attend Phys: Gamaliel Remy MD Discharge: Date of : 51 Report #: [id number] THIS REPORT FOR: //name// CC: Gamaliel Remy [facility] unknown DATE OF SERVICE: 11/27/2017 ATTENDING PHYSICIAN: Gamaliel Remy MD. TRUCK PACKER: Ehsan Munson, PhD. CLINICAL PRESENTATION: The patient is a 67-year-old male admitted to the rehabilitation unit at [facility] for comprehensive inpatient program to improve functional mobility, activities of daily living and self-care and mental status. The patient reportedly had a fall in his home in which he was retropulsive, hitting the back of his head in their closet. He was admitted for several days and his condition deteriorated to the extent that he required toya hole to alleviate crainal pressure. The toya hole procedure was on 11/13/2017. His course was complicated by atrial flutter, pneumonia, COPD and hyponatremia. Diagnostic assessment on admission to rehab included traumatic encephalopathy, right subdural hematoma, status post toya hole drainage on 11/13/2017, mild left-sided hemiparesis, functional mobility, ADL and cognitive deficits, history of chronic hyponatremia, COPD, frequent falls, history of atrial flutter, pneumonia, hypertension, abdominal aortic aneurysm, recent left lower lobe pneumonia, history of non-ST elevation myocardial infarction and a history of spontaneous pneumothorax. A complete description of his medical condition and history can be found in his medical record. Neuropsychological consultation was requested to provide assistance in the assessment of cognitive and emotional status and to provide appropriate services. The patient is reported to have had numerous falls within the last several months. His indicates that his cognitive functioning has shown deterioration since his fpc about 6 months ago. He has had numerous falls since his fpc. Head trauma was associated with a fall about 6 weeks ago. He has not required hospitalization and brain imaging did not reveal any significant hematoma prior to this most recent event. The patient is a high school graduate. 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 He has 4 children. A history of anxiety disorder is reported. There is no history of alcohol/drug abuse. However, a history of caffience supplementation is reported as excessive and includes the use of zrzo-yqu-yekltbm tablets. TECHNIQUES UTILIZED: Clinical interview, review of medical records, staff consultation and behavioral observation, mini mental status exam [address] [address] CONSULTATION Name: MOISES AQUINO Room #: 510-P [facility] IN [facility]#: [id number] Admission: 11/24/17 Attend Phys: Gamaliel Remy MD Discharge: Date of : 51 Report #: [id number] version, clock drawing, verbal fluency assessment (letter and category) and family interview - . EXAMINATION FINDINGS: The patient was alert and cooperative with the assessment. He accurately described the reason for his hospitalization. He does not report a retrograde or posttraumatic amnesia surrounding the fall. However, he does have a period of amnesia as the subdural hematoma developed prior to the toya hole procedure. His indicates a history of anxiety and intermittent irritability. Irritability has been worse during his recovery. The patient does not report auditory or visual hallucinations. There is also no suicidal ideation. Sleep and appetite are improving. He does not report subjective anxiety or depression at this time. His is recognizing difficulty that he is having with memory and word finding. His performance on the MMSE 2 brief version is in the mild range of impairment with a raw score of 13 of 16. He was 3/3 for initial registration, 4/5 for orientation to time, 5/[address] and 1/3 for immediate recall of 3 items after a brief time delay and distraction. His performance on the MMSE 2 standard version was in the mild range of impairment with a raw score of 24/30, T score of 37. He was 3/5 for serial sevens, 2/2 for naming, 1/1 for repetition. He was 3/3 for comprehension. He could read and follow a single command and write a sentence. He was unable to accurately copy a simple geometric design. The patient is somewhat impulsive in his responses when questioned. Clock drawing is generally within normal limits. Single letter fluency was within normal limits with a T score of 57 and a raw score of 15 for letter fluency. Single category fluency as assessed through animal naming was within normal limits with a raw score of 15 and a T score of 46. The patient is presenting with mild deficits in cognition. Difficulty with immediate recall and sustained concentration is suggested. It should be noted that his reports caffeine abuse (no-doze) tablems prior to this most recent medical event. He had been taking no dose excessively and hiding his use from family. 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 Unspecified anxiety disorder. Caffeine use disorder - (OTC tablets) [facility] [address] [place] [address] CONSULTATION Name: MOISES AQUINO Room #: 510-P ADM IN M.R.#: [id number] Admission: 11/24/17 Attend Phys: Gamaliel Remy MD Discharge: Date of : 51 Report #: [id number] RECOMMENDATIONS: Continued cognitive therapy to assist with the development of compensatory strategies for variability in memory and concentration. A followup neuropsychological assessment will be of benefit to assist in clarification of cognitive deficits. He may benefit from the use of antidepressant medication with anxiolytic features. Issues of excessive caffeine use as reported by his should be further evaluated. Thank you very much for allowing me to provide the consultation on this patient. <ELECTRONICALLY SIGNED> By: Ehsan Munson, PhD 11/27/17 1615 1355 1418 Ehsan Munson, PhD /nt
--- NOTE | ~2017-11-24 | PLAN ---
[facility] [place] [address] REHAB UNIT PLAN OF CARE Name: MOISES AQUINO Room #: 510-P ADM IN M.R.#: [id number] Admission: 11/24/17 Attend Phys: Gamaliel Remy MD Discharge: Date of : 51 Report #: [id number] THIS REPORT FOR: //name// CC: Gamaliel Remy [facility] unknown DATE OF SERVICE: 11/26/2017 The patient was seen earlier. Temp 36.8, pulse 63, respirations 18, blood pressure 97/49 on 2 liters nasal prong O2 overnight and noted to be voiding per urinal. He has been working in therapies with transfers, min assist, gait 50 feet, min assist with a front-wheeled walker. In occupational therapy, upper body dressing with supervision, with lower body dressing mod assist. Speech therapy, has mild comprehensive deficits. ASSESSMENT: 1. Traumatic encephalopathy. 2. Right subdural hematoma, status post toya hole drainage 11/13/2017. 3. Mild left-sided hemiparesis. 4. History of chronic hyponatremia. 5. Chronic obstructive pulmonary disease on nasal prong O2. 6. Frequent falls. 7. History of atrial flutter. 8. History of pneumonia. 9. Hypertension. 10. Abdominal aortic aneurysm. 11. Recent left lower lobe pneumonia from 11/08/2017. 12. History of non-ST elevation myocardial infarction. 13. History of spontaneous pneumothorax. PLAN: The overall plan of care is based on the preadmission screen, post-admission physician evaluation and information garnered from therapy assessments. 1. Estimated length of stay is probably at least 2 weeks, potentially longer as needed. 2. Medical prognosis is reasonably good. 3. Anticipated interventions includes the interdisciplinary acute inpatient rehabilitation program. 4. Anticipated functional outcomes would be for the patient to become modified independent with transfers, mobility, ADLs and cognition, communication, so that he can return back home. 5. Discharge destination would be back to the home setting where he lives in a house with his . 6. Expected therapy by discipline includes PT, OT and speech, 1 hour per day each five days a week throughout the duration of the acute inpatient rotation [address] [address] REHAB UNIT PLAN OF CARE Name: KENIAMOISES Spence Room #: 510-P ADM IN .R.#: [id number] Admission: 11/24/17 Attend Phys: Gamaliel Remy MD Discharge: Date of : 51 Report #: [id number] stay. We will have the presales consultant physicians, continue to follow while he is on the acute rehab cisneros. <ELECTRONICALLY SIGNED> By: Gamaliel Remy MD 11/28/17 1325 1111 1346 Gamaliel Remy MD /PMT
--- NOTE | ~2017-11-24 | EKG ---
[address] [place] [address] ELECTROCARDIOGRAM REPORT Name: MOISES AQUINO Room #: 510-P ADM IN M.R.#: [id number] Admission: 11/24/17 Attend Phys: Gamaliel Remy MD Discharge: Date of : 51 Report #: [id number] THIS REPORT FOR: //name// [facility] Test Date: 2017-12-06 Test Time: 06:42:15 Pat Name: MOISES AQUINO Department: Room: 510 Gender: M Media Account Executive: REA : 1950 Requested By: Gamaliel Sol Order Number: [id number] MD: Prashant Evans Measurements Intervals [place] Rate: 73 P: -81 [place]: 239 QRS: -68 QRSD: 142 T: 75 QT: 441 QTc: 486 Interpretive Statements Sinus or ectopic atrial rhythm Prolonged [place] interval Left bundle branch block Compared to ECG 11/09/2017 10:02:03 Ectopic atrial rhythm now present Electronically Signed On 12-06-2017 8:22:26 CDT by Prashant Evans [email or web address] <ELECTRONICALLY SIGNED> By: Prashant Evans MD, [facility] 12/06/17 0822 1 1 Prashant Evans MD, [facility] /EPI
--- NOTE | ~2017-11-24 | HC ---
[facility] [place] [address] CONSULTATION Name: MOISES AQUINO Room #: 510-P ADM IN M.R.#: [id number] Admission: 11/24/17 Attend Phys: Gamaliel Remy MD Discharge: Date of : 51 Report #: [id number] THIS REPORT FOR: //name// CC: Gamaliel Remy FAM unknown Lalo Leahy MD DATE OF SERVICE: 12/05/2017 HISTORY OF PRESENT ILLNESS: The patient is a 67-year-old white male who I was asked to see in the hospital today because of his history of atrial fibrillation. The patient has a long history of recurrent atrial arrhythmias. He was on sotalol for several years. However, he was admitted to [facility] last year with recurrent atrial fibrillation and was switched from sotalol to amiodarone. He was anticoagulated with Eliquis. Echocardiogram last year showed normal left ventricular function. He was actually admitted to [facility] in September after he fell and was found to have a pneumothorax. He required a chest tube for drainage. He has COPD and is followed by Dr. Pizano. He has oxygen at home. I actually saw the patient in the clinic in September when he was doing well. Unfortunately, recently, the patient was at home when he lost his balance and fell. He struck his head. He came to [facility], but was found to have a subdural hematoma, was transferred to [facility]. He eventually required toya hole drainage. The Eliquis was discontinued. He had some weakness of his arm. He was then transferred to [facility] rehab last week. He is now getting ready to go home. I was asked to see him for cardiac evaluation. Denies recent chest pain, shortness of breath, palpitations, edema, syncope. PAST MEDICAL HISTORY: Otherwise significant for hemicolectomy for diverticular disease, hernia repair. He has a history of hypertension, COPD. He has a known abdominal aortic aneurysm. MEDICATIONS: At this time, consist of nebulizer treatments, amiodarone 200 mg a day, Lasix 20 mg a day, aspirin 81 mg a day. He is no longer on diltiazem, no metoprolol because of low blood pressure. ALLERGIES: HE HAS A PREVIOUS INTOLERANCE TO LEVOFLOXACIN. FAMILY HISTORY: Father and mother had heart attack. SOCIAL HISTORY: He is retired, quit smoking and has several glasses of alcohol a week. REVIEW OF SYSTEMS: He has had no previous history of stroke. He does have COPD. No history of peptic ulcer disease, liver disease, kidney disease, cancer, psychiatric illness. [address] [address] CONSULTATION Name: MOISES AQUINO Room #: 510-P [facility] IN M.R.#: [id number] Admission: 11/24/17 Attend Phys: Gamaliel Remy MD Discharge: Date of : 51 Report #: [id number] PHYSICAL EXAMINATION: GENERAL: Revealed an elderly male, lying in bed. He appeared in no distress. VITAL SIGNS: He had a blood pressure of 120/60, pulse is 80. He is afebrile. HEENT: He is anicteric. Conjunctivae pink. Mucous membranes moist. NECK: Veins nondistended. No carotid bruits. Neck is supple. CHEST: Clear to auscultation. CARDIAC: Regular rate and rhythm. ABDOMEN: Soft, nontender. EXTREMITIES: Had no edema. Posterior tibial pulse 2+ bilaterally. SKIN: Warm, dry. NEUROLOGIC: Nonfocal. IMPRESSION AND RECOMMENDATIONS: 1. Chronic obstructive pulmonary disease. 2. Paroxysmal atrial fibrillation. The patient in sinus rhythm on amiodarone. Because of history of falls, I believe he is a poor candidate for anticoagulation. I therefore will leave him off Eliquis at this time and continue aspirin 81 mg a day. 3. Previous tobacco abuse. 4. History of hyperlipidemia. The patient has been on a statin drug. 5. Abdominal aortic aneurysm. After the patient recovers from his surgery, I would have the patient return to see Dr. Kiser for consideration of placement of a stent graft. <ELECTRONICALLY SIGNED> By: Gamaliel Sol MD, FACC 12/07/17 1854 1737 33 Gamaliel Sol MD, FACC /nt
--- NOTE | ~2017-11-24 | HC ---
[facility] [place] [address] CONSULTATION Name: MOISES AQUINO Room #: 510-P [facility] IN M.R.#: [id number] Admission: 11/24/17 Attend Phys: Gamaliel Remy MD Discharge: Date of : 51 Report #: [id number] THIS REPORT FOR: //name// CC: Gamaliel Remy FAM unknown REFERRAL PHYSICIAN: Gamaliel Remy MD REASON FOR REFERRAL: COPD. HISTORY OF PRESENT ILLNESS: The patient is a 67-year-old white male who was admitted to the rehab for ongoing therapy. He has COPD. Pulmonary consultation was requested. The patient is followed longitudinally by Dr. Pizano for COPD. He also had a recent traumatic pneumothorax back in 09/2017. Recently, he was hospitalized at [facility]. He was found to have subdural hematoma. He was transferred to [facility] for neurosurgical intervention. He returns here for ongoing rehabilitation therapy. Currently, denies any dyspnea, night sweats or chills, chest pain or productive cough. 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 PAST SURGICAL HISTORY: As mentioned above. ALLERGIES: None to medications. CURRENT MEDICATIONS: Lists are reviewed. It also includes Ventolin, Spiriva. FAMILY HISTORY: Noncontributory. SOCIAL HISTORY: The patient has smoked, but quit several years ago. He denies any alcohol use. REVIEW OF SYSTEMS: As mentioned above, otherwise 10-point system review negative. PHYSICAL EXAMINATION: GENERAL: He is awake, alert, in no apparent distress. VITAL SIGNS: Temperature is 97.5 degrees Fahrenheit, pulse is 55, respiratory rate is 16, blood pressure 110/67 mmHg and saturation 96%. HEENT: Unremarkable. NECK: Supple. [facility] [address] [place] [address] CONSULTATION Name: MOISES AQUINO Room #: 510-P ADM IN M.R.#: [id number] Admission: 11/24/17 Attend Phys: Gamaliel Remy MD Discharge: Date of : 51 Report #: [id number] CHEST: Breath sounds are good bilaterally with few scattered crackles. No wheezes. CARDIOVASCULAR: Normal S1 and S2. There are no murmurs or gallop. There is no JVD. There is no carotid bruit. Pulses are 2+ and 4+ bilaterally. ABDOMEN: Soft, nontender, no organomegaly or masses felt. GENITOURINARY: Deferred. RECTAL: Deferred. EXTREMITIES: There is no edema, cyanosis or clubbing. LABORATORY DATA: Chest x-ray is pending. Electrolytes are normal. WBC 13,600; hemoglobin 10.0; platelets are mildly elevated. IMPRESSION: 1. Chronic obstructive pulmonary disease, severe impairment, emphysema in type, stable. 2. Recent traumatic pneumothorax, resolved. 3. Generalized debility, ongoing rehabilitation. 4. Paroxysmal atrial fibrillation. 5. Recent subdural hematoma status post craniotomy. RECOMMENDATION: We will continue bronchodilator therapy. Continue physical therapy as you are. DVT and GI prophylaxis will be addressed. Thank you for this consultation. <ELECTRONICALLY SIGNED> By: Chente Etienne MD 11/28/17 1709 1404 1831 Chente Etienne MD /nt
--- NOTE | ~2017-11-24 | H ---
[facility] [place] [address] HISTORY AND PHYSICAL Name: MOISES AQUINO Room #: 510-P ADM IN M.R.#: [id number] Admission: 11/24/17 Attend Phys: Gamaliel Remy MD Discharge: Date of : 52 Report #: [id number] THIS REPORT FOR: //name// CC: Gamaliel Remy [facility] unknown DATE OF SERVICE: 11/25/2017 HISTORY AND PHYSICAL/POSTADMISSION PHYSICIAN EVALUATION HISTORY OF PRESENT ILLNESS: The patient is a 67-year-old white male, who was admitted to [facility] after an apparent fall in his bathroom, hitting his head. He was noted to have a traumatic subdural hematoma with 10 mm of shift. He also had some neck pain, although cervical spine workup was negative for any fractures. He ended up undergoing a bur hole, which showed both new and some old blood. Surgery was noted to be on 11/13/2017. His course was complicated by atrial flutter, pneumonia, COPD, hyponatremia. He was fluid restricted. He was noted to have significant functional mobility in ADL, deficits with cognitive concerns, and has been diagnosed with a traumatic encephalopathy. He has been transferred to the acute in-hospital inpatient rehabilitation [facility]. PAST MEDICAL HISTORY: Includes abdominal aortic aneurysm, chronic hyponatremia, COPD, frequent falls, history of atrial flutter, history of pneumonia, hypertension, lung mass, non-ST elevation NC, paroxysmal atrial fibrillation, on Eliquis, and spontaneous pneumothorax. MEDICATIONS: Please see the full medication listing. Each of these was individually reconciled. SURGICAL PROCEDURE: Right toya hole drainage of the subdural hematoma with subdural drain placement, 11/13/2017. He was noted to have mild left hemiparesis. ALLERGIES: No known drug allergies. FAMILY HISTORY: NC, mother. COPD, Mother. NC, father. HABITS: Former tobacco smoker, quit in the year 1999. No history of alcohol abuse. ALLERGIES: No known drug allergies. SOCIAL HISTORY: Lives in a house with . works. He used a cane. He was on some oxygen at home 2 liters just prior to his most recent admission. [facility] [address] [place] [address] HISTORY AND PHYSICAL Name: MOISES AQUINO Room #: 510-P [facility] IN ..#: [id number] Admission: 11/24/17 Attend Phys: Gamaliel Remy MD Discharge: Date of : 52 Report #: [id number] REVIEW OF SYSTEMS: Did not offer any current complaints of chest pain, shortness of breath or abdominal discomfort. No focal extremity pain complaints. PHYSICAL EXAMINATION: GENERAL: The patient is a pleasant 67-year-old white male, no obvious distress. VITAL SIGNS: Last recorded temperature is 97.5, pulse 55, respirations 16, blood pressure is 111/67. The patient is alert. HEENT: Appeared to be benign. He has the scalp incision which is well-healed. Right posterior lateral scalp. He is on nasal prong O2, currently he is on 3 liters. EOMs appeared to be full. Facies appeared symmetric. CHEST: Sounded clear to auscultation. CARDIAC: Regular rate and rhythm with occasional extra beats. ABDOMEN: Bowel sounds positive, nontender. GENITOURINARY AND RECTAL: Deferred. EXTREMITIES: Functional range of motion of both upper extremities. He has some mild left-sided weakness, grade 4-/5. Right upper extremity is more of a 4/5. DTRs are trace to 1. Does fairly well with jliiml-yu-kdgj bilaterally. Lower extremities, no focal calf swelling, functional range of motion, strength is grade 4-/5. He is needing assistance with basic functional mobility skills. ASSESSMENT: A 67-year-old white male with the following problem list: 1. Traumatic encephalopathy. 2. Right subdural hematoma, status post toya hole drainage 11/13/2017. 3. Mild left-sided hemiparesis. 4. Functional mobility, ADL, and cognitive deficits. 5. History of chronic hyponatremia. 6. Chronic obstructive pulmonary disease. He is currently on 4 liters nasal prong O2. 7. Frequent falls. 8. History of atrial flutter. 9. History of pneumonia. 10. Hypertension. 11. Abdominal aortic aneurysm. 12. Recent left lower lobe pneumonia from early October 2017. 13. History of non-ST elevation myocardial infarction. 14. History of spontaneous pneumothorax. PLAN: The patient is admitted for acute in-hospital inpatient rehabilitation. From a postadmission physician evaluation perspective, there are no relevant changes since the preadmission screening. Please see the above review of prior and current medical and functional conditions and comorbidities. Please see the patient's previous and current functional status. As far as risk of complications, there are multiple medical comorbidities as noted above. Initial plan of care involves the interdisciplinary acute inpatient rehabilitation program with goal of maximizing the patient's functional independence, so he can hopefully return back to his prior living situation. Prognosis is reasonably good with estimated length of stay probably 10 days to 2 weeks, likely longer as [facility] [address] [place] [address] HISTORY AND PHYSICAL Name: MOISES AQUINO Room #: 510-P ADM IN M.R.#: [id number] Admission: 11/24/17 Attend Phys: Gamaliel Remy MD Discharge: Date of : 52 Report #: [id number] needed. Potential barriers would include the patient's multiple medical comorbidities and decreased functional status. <ELECTRONICALLY SIGNED> By: Gamaliel Remy MD 11/25/17 1409 1009 1316 Gamaliel Remy MD /[facility]
[2017-11-24 20:29] VITALS: BP 112/63
[2017-11-24] MEDS ORDERED: PACERONE 200 M200 M1 PO (21:13)
[2017-11-24] MEDS ORDERED: PULMICORT0.5 MG/22 INH (21:14)
[2017-11-24] MEDS ORDERED: COMBIVENT RESPIM4 GM (21:15)
[2017-11-24] MEDS ORDERED: ELIQUIS5 MG PO (21:16)
[2017-11-24] MEDS ORDERED: LASIX 40 MG TAB40 M2 PO (21:16)
[2017-11-24] MEDS ORDERED: INCRUSE ELLI62.5 MCG PO (21:17)
[2017-11-24] MEDS ORDERED: MELATONIN5 M1 PO (21:18)
[2017-11-24] MEDS ORDERED: LOPRESSOR50 PO (21:18)
[2017-11-24] MEDS ORDERED: OXYCODONE HCL 55 MG PO (21:19)
[2017-11-24] MEDS ORDERED: OXYCODONE HCL10 MG PO (21:20)
[2017-11-24] MEDS ORDERED: PROTONIX40 M1 PO (21:21)
[2017-11-24] MEDS ORDERED: POTASSIUM20 PO (21:21)
[2017-11-24] MEDS ORDERED: ALBUTEROL2.5 MG/31 INH (21:22)
[2017-11-24] MEDS ORDERED: SPIRIVA INH (21:22)
[2017-11-24] MEDS ORDERED: VENTOLIN HFA 1818 GM INH (21:23)
[2017-11-25 06:38] LABS: HEMATOCRIT 30.8 % (42.0-52.0); MCH 32.9 pg (26.0-34.0); MCHC 32.3 g/dL (28.0-37.0); MCV 101.9 fL (80.0-100.0); RBC 3.03 mil/uL (4.50-6.00); RDW 18.1 % (10.5-14.5); WBC 13.6 thou/uL (4.0-11.0)
[2017-11-25 06:44] LABS: CALCIUM 8.7 mg/dL (8.5-10.1); CREATININE 0.7 mg/dL (0.7-1.3); POTASSIUM 4.2 mmol/L (3.5-5.1)
[2017-11-25 08:16] VITALS: BP 111/67
[2017-11-25 17:55] VITALS: BP 94/50
[2017-11-25 20:26] VITALS: BP 95/56
[2017-11-26 08:40] VITALS: BP 97/49
[2017-11-26 21:29] VITALS: BP 98/49
[2017-11-26 22:00] VITALS: BP 102/56
[2017-11-27 08:15] VITALS: BP 102/51
[2017-11-27 13:52] LABS: HEMATOCRIT 33.6 % (42.0-52.0); HEMOGLOBIN 11.1 gm/dL (14.0-18.0); MCH 33.6 pg (26.0-34.0); MCV 101.9 fL (80.0-100.0); RBC 3.3 mil/uL (4.50-6.00); RDW 18.1 % (10.5-14.5); WBC 13.3 thou/uL (4.0-11.0)
[2017-11-27 20:20] VITALS: BP 104/49
[2017-11-28 05:25] LABS: ABSOLUTE NEUTROPHILS 8.2 thou/uL (1.4-8.2); BASOPHILS 0.6 % (0.0-2.0); HEMATOCRIT 31.4 % (42.0-52.0); HEMOGLOBIN 10.4 gm/dL (14.0-18.0); LYMPHOCYTES 6.3 % (24.0-44.0); MCH 33.6 pg (26.0-34.0); MCHC 32.9 g/dL (28.0-37.0); MCV 102.1 fL (80.0-100.0); MONOCYTES 9.6 % (1.0-8.0); PLATELET COUNT 299 thou/uL (150-400); POLYS 80.5 % (36.0-66.0); RBC 3.08 mil/uL (4.50-6.00); RDW 18.3 % (10.5-14.5); WBC 10.2 thou/uL (4.0-11.0)
[2017-11-28 05:32] LABS: CALCIUM 8.5 mg/dL (8.5-10.1); CREATININE 0.8 mg/dL (0.7-1.3); MAGNESIUM 2.2 mg/dL (1.8-2.4); POTASSIUM 4.1 mmol/L (3.5-5.1)
[2017-11-28 08:15] VITALS: BP 107/59
[2017-11-28 19:27] VITALS: BP 130/71
[2017-11-29 07:03] LABS: HEMATOCRIT 30.1 % (42.0-52.0); HEMOGLOBIN 10.3 gm/dL (14.0-18.0); MCH 34.2 pg (26.0-34.0); MCHC 34.1 g/dL (28.0-37.0); MCV 100.4 fL (80.0-100.0); RDW 17.9 % (10.5-14.5); WBC 9.4 thou/uL (4.0-11.0)
[2017-11-29 07:14] LABS: CALCIUM 8.4 mg/dL (8.5-10.1); CREATININE 0.7 mg/dL (0.7-1.3); POTASSIUM 3.9 mmol/L (3.5-5.1)
[2017-11-29 08:34] VITALS: BP 102/53
[2017-11-29 19:09] VITALS: BP 106/56
[2017-11-29 19:40] VITALS: BP 113/54
[2017-11-30 05:03] LABS: HEMATOCRIT 27.8 % (42.0-52.0); HEMOGLOBIN 9.1 gm/dL (14.0-18.0); MCHC 32.8 g/dL (28.0-37.0); MCV 100.5 fL (80.0-100.0); RBC 2.76 mil/uL (4.50-6.00); RDW 17.5 % (10.5-14.5); WBC 8.7 thou/uL (4.0-11.0)
[2017-11-30 05:15] LABS: CALCIUM 8.3 mg/dL (8.5-10.1); CREATININE 0.8 mg/dL (0.7-1.3); POTASSIUM 4.1 mmol/L (3.5-5.1)
[2017-11-30 09:00] VITALS: BP 114/62
[2017-11-30 19:20] VITALS: BP 117/59
[2017-12-01 05:20] LABS: CALCIUM 8.4 mg/dL (8.5-10.1); CREATININE 0.7 mg/dL (0.7-1.3); POTASSIUM 4.1 mmol/L (3.5-5.1)
[2017-12-01 05:36] LABS: HEMATOCRIT 28.1 % (42.0-52.0); MCH 32.3 pg (26.0-34.0); MCHC 32.1 g/dL (28.0-37.0); MCV 100.6 fL (80.0-100.0); RBC 2.79 mil/uL (4.50-6.00); RDW 17.6 % (10.5-14.5); WBC 7.8 thou/uL (4.0-11.0)
[2017-12-01 07:05] VITALS: BP 107/67
[2017-12-01 19:48] VITALS: BP 106/65
[2017-12-02 07:30] VITALS: BP 108/64
[2017-12-02 21:24] VITALS: BP 110/66
[2017-12-03 00:16] VITALS: BP 132/64
[2017-12-03 07:35] VITALS: BP 101/59
[2017-12-03 20:04] VITALS: BP 100/60
[2017-12-04 20:13] VITALS: BP 124/79
[2017-12-04 22:45] LABS: BE(vivo) 1.6 mmol/L (-2 to +3); HCO3 25.5 mmol/L (22.0-26.0); PCO2 37.7 mmHg (35.0-45.0); PO2 60.9 mmHg (80.0-100.0); pH 7.448 (7.360-7.450); sO2 92.5 % (92.0-98.0)
[2017-12-05 04:17] LABS: ABSOLUTE NEUTROPHILS 6.2 thou/uL (1.4-8.2); BASOPHILS 0.4 % (0.0-2.0); EOSINOPHILS 0.5 % (0.0-3.0); HEMATOCRIT 27.8 % (42.0-52.0); HEMOGLOBIN 9.2 gm/dL (14.0-18.0); LYMPHOCYTES 2.7 % (24.0-44.0); MCH 32.3 pg (26.0-34.0); MCV 97.9 fL (80.0-100.0); MONOCYTES 0.9 % (1.0-8.0); PLATELET COUNT 307 thou/uL (150-400); POLYS 95.5 % (36.0-66.0); RBC 2.84 mil/uL (4.50-6.00); RDW 17.7 % (10.5-14.5); WBC 6.5 thou/uL (4.0-11.0)
[2017-12-05 04:20] LABS: ALBUMIN 2.2 g/dL (3.4-5.0); CALCIUM 8.7 mg/dL (8.5-10.1); CREATININE 0.8 mg/dL (0.7-1.3); PHOSPHORUS 3.6 mg/dL (2.5-4.9); POTASSIUM 4.4 mmol/L (3.5-5.1)
[2017-12-05 07:10] VITALS: BP 117/65
[2017-12-05 19:25] VITALS: BP 121/72
[2017-12-06 08:15] VITALS: BP 121/73
[2017-12-06 19:30] VITALS: BP 131/73
[2017-12-07 07:50] VITALS: BP 134/68
[2017-12-07 10:15] VITALS: BP 119/62
[2017-12-07 20:36] VITALS: BP 123/71
[2017-12-08 08:07] VITALS: BP 128/56
[2017-12-08 20:00] VITALS: BP 119/62
[2017-12-09 07:30] VITALS: BP 105/66
[2017-12-09 20:00] VITALS: BP 108/59
[2017-12-10 08:27] VITALS: BP 128/66
[2017-12-10 20:00] VITALS: BP 110/72
[2017-12-11 19:18] VITALS: BP 111/57
[2017-12-12 07:15] VITALS: BP 103/60
[2017-12-12 20:00] VITALS: BP 119/62
[2017-12-13] MEDS ORDERED: AUGMENTIN 875-1 EACH PO (07:41)
[2017-12-13] MEDS ORDERED: VOLTAREN GEL 1100 G2 TOP (07:41)
[2017-12-13] MEDS ORDERED: MUCINEX600 MG PO (07:41)
[2017-12-13] MEDS ORDERED: BAYER CHEWABLE81 MG PO (07:41)
[2017-12-13] MEDS ORDERED: GABAPENTIN 100100 MG PO (07:41)
[2017-12-13] MEDS ORDERED: FLONASE 0.05%50 MCG NASAL (07:41)
[2017-12-13] MEDS ORDERED: COLACE100 MG PO (07:41)
[2017-12-13] MEDS ORDERED: PREDNISONE 10 M10 MG PO ×3 (07:41→16:18)
[2017-12-13] MEDS ORDERED: PROBIOTIC1 EAC1 PO (07:41)
[2017-12-13 08:59] VITALS: BP 127/68
[2017-12-13 09:04] VITALS: BP 127/68
[2017-12-13 11:05] VITALS: BP 127/68
[2017-12-13 14:50] VITALS: BP 127/68
[2017-12-13 14:53] VITALS: BP 127/68
== END 2017-12-13 17:04 | DRG 85 ==
LOC: ENTRNSPT 12-13 16:49
PROVIDERS: Hospitalist; Internal Medicine; Internal Medicine Pulmonary Disease; Nurse Practitioner; Physical Medicine & Rehabilitation
DX: S06.5X0A Traumatic subdural hemorrhage without loss of consciousness, initial encounter (principal); J96.21 Acute and chronic respiratory failure with hypoxia; J18.1 Lobar pneumonia, unspecified organism; G81.94 Hemiplegia, unspecified affecting left nondominant side; E22.2 Syndrome of inappropriate secretion of antidiuretic hormone; J93.83 Other pneumothorax; I48.92 Unspecified atrial flutter; F07.81 Postconcussional syndrome; I10 Essential (primary) hypertension; I48.0 Paroxysmal atrial fibrillation; G89.29 Other chronic pain; M54.9 Dorsalgia, unspecified; M54.2 Cervicalgia; R26.9 Unspecified abnormalities of gait and mobility; G62.9 Polyneuropathy, unspecified; R53.81 Other malaise; I25.2 Old myocardial infarction; Z87.891 Personal history of nicotine dependence; R29.6 Repeated falls; I71.4 Abdominal aortic aneurysm, without rupture; J43.9 Emphysema, unspecified; W18.39XA Other fall on same level, initial encounter; Y93.89 Activity, other specified; Y92.091 Bathroom in other non-institutional residence as the place of occurrence of the external cause; Y99.8 Other external cause status; Z82.49 Family history of ischemic heart disease and other diseases of the circulatory system; Z82.5 Family history of asthma and other chronic lower respiratory diseases; Z79.899 Other long term (current) drug therapy; E78.5 Hyperlipidemia, unspecified; Z87.01 Personal history of pneumonia (recurrent); Z88.1 Allergy status to other antibiotic agents; Z79.01 Long term (current) use of anticoagulants
CPT/HCPCS: 10112

== ENCOUNTER 2018-01-25 05:25 | Inpatient (IN) | payer OTHER ==
[2018-01-19 11:07] LABS: ABSOLUTE NEUTROPHILS 4.2 thou/uL (1.4-8.2); BASOPHILS 0.8 % (0.0-2.0); EOSINOPHILS 1.9 % (0.0-3.0); HEMATOCRIT 36.6 % (42.0-52.0); HEMOGLOBIN 11.6 gm/dL (14.0-18.0); LYMPHOCYTES 12.3 % (24.0-44.0); MCHC 31.7 g/dL (28.0-37.0); MCV 91.5 fL (80.0-100.0); MONOCYTES 6.2 % (1.0-8.0); PLATELET COUNT 363 thou/uL (150-400); POLYS 78.8 % (36.0-66.0); RDW 17.8 % (10.5-14.5); WBC 5.4 thou/uL (4.0-11.0)
[2018-01-19 11:13] LABS: URINE BILIRUBIN NEGATIVE (Negative); URINE BLOOD NEGATIVE (Negative); URINE CLARITY CLEAR; URINE COLOR YELLOW; URINE GLUCOSE-RANDOM* NEGATIVE (Negative); URINE KETONES NEGATIVE (Negative); URINE LEUKOCYTES-REFLEX NEGATIVE (Negative); URINE NITRITE-REFLEX NEGATIVE (Negative); URINE PROTEIN (DIPSTICK) NEGATIVE (Negative); URINE SPECIFIC GRAVITY >= 1.030 (1.005-1.035); URINE UROBILINOGEN 0.2 E.U./dl (0.2-1.0)
[2018-01-19 11:16] LABS: APTT 24.7 Seconds (24.5-32.8)
[2018-01-19 11:20] LABS: ALBUMIN 3.2 g/dL (3.4-5.0); CALCIUM 8.9 mg/dL (8.5-10.1); CREATININE 0.8 mg/dL (0.7-1.3); TOTAL BILIRUBIN 0.4 mg/dL (<0.1-1.0); TOTAL PROTEIN 6.7 g/dL (6.4-8.2)
[2018-01-25] VITALS (7 sets, daily range): BP systolic 96–116; BP diastolic 56–62
[~2018-01-25] VITALS: Ht 182.9 cm; Wt 86.5 kg
--- NOTE | ~2018-01-25 | PATH ---
[facility] [place] [address] PATHOLOGY RPT PROCEDURE Name: DIETER ARRIOLA Room #: 240-P [facility] IN M.R.#: [id number] Admission: 01/25/18 Date of : 52 Discharge: 01/26/18 Report #: [id number] Path Case #: [id number] [facility] Accession Number: [id number] . 01 Material submitted: . PART A: RIGHT FEMORAL LYMPH NODE PART B: LEFT FEMORAL LYMPH NODE . 01 Clinical history: . AAA . 02 Diagnosis: A. "Right femoral lymph node", dissection: - Lymph nodes (2) with focal hilar fibrosis and mild hyperplasia (two nodes). . B. "Left femoral lymph nodes", dissection: - Lymph nodes (2) with focal hilar fibrosis and mild hyperplasia (two nodes). (CLW:denise; 01/26/2018) QTP/01/26/2018 . 02 Electronically signed: . Sudha Villafuerte MD, Pathologist NPI- [id number] . 01 Gross description: . A. The specimen is received in formalin, labeled "Dieter Arriola, right femoral lymph node" and consists of two lymph nodes measuring 0.9 x 0.5 x 0.5 cm and 3.4 x 2.4 x 0.7 cm. They are serially sectioned and entirely submitted in A1-A3. . B. The specimen is received in formalin, labeled "Dieter Arriola, left femoral lymph nodes" and consists of two lymph nodes measuring 2.3 x 0.8 x 0.7 cm and 0.9 x 0.5 x 0.5 cm. They are serially sectioned and entirely submitted in B1-B3. (SDY; 01/25/2018) SYU/SYU . 02 Pathologist provided ICD-10: R59.9 . 02 CPT . 279195, [id number] Performed at: [address], [place], [place] [id number] [place] [address] PATHOLOGY RPT PROCEDURE Name: DIETER ARRIOLA Room #: 240-P [facility] IN M.R.#: [id number] Admission: 01/25/18 Date of : 52 Discharge: 01/26/18 Report #: [id number] Path Case #: [id number] MD Kapil Medina MD Phone: [phone] Performed at: [address] [id number] MD Destiny Nance MD Phone: [phone]
[~2018-01-25 05:25] MED LIST changes: +BAYER CHEWABLE81 MG PO; +CENTRUM SILVER1 EAC2 PO; +COLACE100 MG PO; +COMBIVENT RESPIM4 GM; +GABAPENTIN 100100 MG PO; +INCRUSE ELLI62.5 MCG PO; +MUCINEX600 MG PO; +OXYCODONE HCL10 MG PO; +POTASSIUM20 PO; +PREDNISONE 10 M10 MG PO; +PROBIOTIC1 EAC1 PO; +PULMICORT0.5 MG/22 INH; +VITAMIN B-121000 MC3 PO; +VITAMIN B-6100 MG PO; +VOLTAREN GEL 1100 G2 TOP
[2018-01-26] VITALS (17 sets, daily range): BP systolic 84–118; BP diastolic 48–73
[2018-01-26 06:04] LABS: ABSOLUTE NEUTROPHILS 7.3 thou/uL (1.4-8.2); BASOPHILS 1.1 % (0.0-2.0); EOSINOPHILS 0.1 % (0.0-3.0); HEMATOCRIT 28.3 % (42.0-52.0); HEMOGLOBIN 9.6 gm/dL (14.0-18.0); LYMPHOCYTES 7.8 % (24.0-44.0); MCHC 33.8 g/dL (28.0-37.0); MCV 88.7 fL (80.0-100.0); PLATELET COUNT 259 thou/uL (150-400); RBC 3.19 mil/uL (4.50-6.00); RDW 17.7 % (10.5-14.5); WBC 8.7 thou/uL (4.0-11.0)
[2018-01-26 06:12] LABS: CALCIUM 8.5 mg/dL (8.5-10.1); CREATININE 0.7 mg/dL (0.7-1.3); MAGNESIUM 2.1 mg/dL (1.8-2.4); POTASSIUM 3.9 mmol/L (3.5-5.1)
== END 2018-01-26 17:25 | disposition home or self-care (01) | DRG 268 ==
LOC: TBA 05:25 → ICU 05:25 → PRE 05:40 → ICU 11:23 → PRE 13:06 → ICU 01-26 17:25
PROVIDERS: Nurse Practitioner; Thoracic Surgery (Cardiothoracic Vascular Surgery)
PROC: 04V03DZ Restriction of Abdominal Aorta with Intraluminal Device, Percutaneous Approach (ICD-10-PCS; principal; 2018-01-25)
PROC: 4A133J1 Monitoring of Arterial Pulse, Peripheral, Percutaneous Approach (ICD-10-PCS; principal; 2018-01-25)
PROC: 4A133B1 Monitoring of Arterial Pressure, Peripheral, Percutaneous Approach (ICD-10-PCS; principal; 2018-01-25)
PROC: 03HY32Z Insertion of Monitoring Device into Upper Artery, Percutaneous Approach (ICD-10-PCS; principal; 2018-01-25)
PROC: B4181ZZ Fluoroscopy of Bilateral Renal Arteries using Low Osmolar Contrast (ICD-10-PCS; 2018-01-25)
DX: I71.4 Abdominal aortic aneurysm, without rupture (principal); E43 Unspecified severe protein-calorie malnutrition; I48.92 Unspecified atrial flutter; D62 Acute posthemorrhagic anemia; J44.9 Chronic obstructive pulmonary disease, unspecified; I10 Essential (primary) hypertension; M19.90 Unspecified osteoarthritis, unspecified site; G89.29 Other chronic pain; E78.5 Hyperlipidemia, unspecified; K21.9 Gastro-esophageal reflux disease without esophagitis; I48.2 Chronic atrial fibrillation; G62.9 Polyneuropathy, unspecified; R91.8 Other nonspecific abnormal finding of lung field; M54.2 Cervicalgia; Z93.3 Colostomy status; Z87.891 Personal history of nicotine dependence; Z99.81 Dependence on supplemental oxygen; Z79.82 Long term (current) use of aspirin; Z79.899 Other long term (current) drug therapy; Z90.49 Acquired absence of other specified parts of digestive tract; R29.6 Repeated falls
CPT/HCPCS: 10078; 47375; 50010; 50101; 50386; 50455; 51078; 54118; 56524; 56526; 56527; 56668; 56760; 57093; 62110; 62900; 65020; 65040; 65043; 70005

== ENCOUNTER → 2018-02-24 | Outpatient (CLI) | payer OTHER ==
[2018-02-24 07:55] LABS: CREATININE 0.9 mg/dL (0.7-1.3)
== END ==
LOC: CAT 07:15
PROVIDERS: Nuclear Medicine Nuclear Cardiology
DX: I71.4 Abdominal aortic aneurysm, without rupture (principal); K76.89 Other specified diseases of liver; E27.9 Disorder of adrenal gland, unspecified; Z95.828 Presence of other vascular implants and grafts

== ENCOUNTER → 2018-05-25 | Outpatient (CLI) | payer OTHER ==
[2018-05-25 14:48] VITALS: BP 135/78
== END ==
LOC: RAD 08:53 → SEN 08:53
DX: J44.1 Chronic obstructive pulmonary disease with (acute) exacerbation (principal); I10 Essential (primary) hypertension; M19.90 Unspecified osteoarthritis, unspecified site; E78.5 Hyperlipidemia, unspecified; K21.9 Gastro-esophageal reflux disease without esophagitis

== ENCOUNTER → 2018-06-08 | Outpatient (CLI) | payer OTHER ==
[2018-06-08 15:32] VITALS: BP 124/86
== END ==
LOC: SEN 08:19
DX: Z09 Encounter for follow-up examination after completed treatment for conditions other than malignant neoplasm (principal); J44.9 Chronic obstructive pulmonary disease, unspecified; I10 Essential (primary) hypertension; I48.91 Unspecified atrial fibrillation; E78.5 Hyperlipidemia, unspecified

== ENCOUNTER → 2018-09-03 | Emergency (ER) | payer OTHER ==
[~2018-09-03] VITALS: Ht 185.4 cm; Wt 93.0 kg
[~2018-09-03] MED LIST changes: +ERYTHROMYCIN250 M1 PO; +INCRUSE ELLI62.5 MCG; +IPRATROPIU0.2 MG/1 M INH; +LASIX 20 MG TAB20 MG PO; +PREDNISONE 20 M20 MG PO; +SERTRALINE HCL50 MG PO; +TRAMADOL 50 MG50 MG PO
[2018-09-03 10:30] LABS: BE(vivo) 3.5 mmol/L (-2 to +3); HCO3 29.5 mmol/L (22.0-26.0); PCO2 50.7 mmHg (35.0-45.0); PO2 73.8 mmHg (80.0-100.0); pH 7.383 (7.360-7.450); sO2 94.5 % (92.0-98.0)
[2018-09-03 10:46] LABS: ANION GAP 6 mmol/L (7-16); BUN 12 mg/dL (7-18); CALCIUM 8.6 mg/dL (8.5-10.1); CHLORIDE 104 mmol/L (98-107); CO2 32 mmol/L (21-32); CREATININE 0.8 mg/dL (0.7-1.3); GLUCOSE 139 mg/dL (74-106); POTASSIUM 3.9 mmol/L (3.5-5.1); SODIUM 142 mmol/L (136-145)
[2018-09-03 10:55] LABS: ALBUMIN 3.4 g/dL (3.4-5.0); SGOT 21 U/L (15-37); SGPT 31 U/L (30-65); TOTAL BILIRUBIN 0.2 mg/dL (<0.1-1.0); TOTAL PROTEIN 6.4 g/dL (6.4-8.2); TROPONIN-I <0.06 ng/mL (<0.06)
[2018-09-03 11:21] LABS: ABSOLUTE NEUTROPHILS 5.3 thou/uL (1.4-8.2); BASOPHILS 0.3 % (0.0-2.0); EOSINOPHILS 0.2 % (0.0-3.0); HEMATOCRIT 39.2 % (42.0-52.0); HEMOGLOBIN 12.7 gm/dL (14.0-18.0); LYMPHOCYTES 6.3 % (24.0-44.0); MCH 29.3 pg (26.0-34.0); MCHC 32.3 g/dL (28.0-37.0); MCV 90.8 fL (80.0-100.0); MONOCYTES 6.4 % (1.0-8.0); PLATELET COUNT 203 thou/uL (150-400); POLYS 86.8 % (36.0-66.0); RBC 4.31 mil/uL (4.50-6.00); RDW 16.3 % (10.5-14.5); WBC 6.2 thou/uL (4.0-11.0)
--- NOTE | 2018-09-03 11:32 | EKG ---
[facility] [place] [address] ELECTROCARDIOGRAM REPORT Name: MOISES AQUINO Room #: [facility]#: [id number] Admission: 09/03/18 Attend Phys: Discharge: Date of : 52 Report #: [id number] THIS REPORT FOR: //name// [facility] ED Test Date: 2018-09-03 Test Time: 10:20:41 Pat Name: MOISES AQUINO Department: Room: Gender: Health Care Recruiter: [place] : 1950 Requested By: Dominga Murillo Order Number: [id number] MD: Mejia Weiss Measurements Intervals [place] Rate: 83 P: -26 KS: 222 QRS: -74 QRSD: 142 T: 105 QT: 423 QTc: 497 Interpretive Statements Sinus rhythm Prolonged KS interval Nonspecific IVCD with LAD Borderline T abnormalities, lateral leads Compared to ECG 12/06/2017 06:42:15 Intraventricular conduction delay now present T-wave abnormality now present Ectopic atrial rhythm no longer present Left bundle-branch block no longer present Electronically Signed On 09-03-2018 11:31:55 FIELD HUMAN RESOURCES MANAGER by Mejia Weiss [email or web address] <ELECTRONICALLY SIGNED> By: Mejia Weiss MD 09/03/18 1131 1020 1020 Mejia Weiss MD /EPI
[2018-09-03 12:23] VITALS: BP 129/67
== END ==
LOC: ER 09:57
PROVIDERS: Physician Assistant
DX: J44.1 Chronic obstructive pulmonary disease with (acute) exacerbation (principal); Z99.81 Dependence on supplemental oxygen; I10 Essential (primary) hypertension; I48.91 Unspecified atrial fibrillation; M19.90 Unspecified osteoarthritis, unspecified site; G89.29 Other chronic pain; M54.2 Cervicalgia; E78.5 Hyperlipidemia, unspecified; K21.9 Gastro-esophageal reflux disease without esophagitis; Z87.891 Personal history of nicotine dependence

== ENCOUNTER 2018-09-06 13:11 | Inpatient (IN) | payer OTHER ==
[~2018-09-06] VITALS: Ht 185.4 cm; Wt 107.3 kg
[~2018-09-06 13:11] MED LIST changes: -ERYTHROMYCIN250 M1 PO; -INCRUSE ELLI62.5 MCG; -IPRATROPIU0.2 MG/1 M INH; -SERTRALINE HCL50 MG PO; -TRAMADOL 50 MG50 MG PO
[2018-09-06 13:42] VITALS: BP 154/77
[2018-09-06] MEDS ORDERED: SERTRALINE HCL50 MG PO (14:09)
[2018-09-06] MEDS ORDERED: ERYTHROMYCIN250 M1 PO (14:10)
[2018-09-06] MEDS ORDERED: INCRUSE ELLI62.5 MCG (14:11)
[2018-09-06] MEDS ORDERED: IPRATROPIU0.2 MG/1 M INH (14:12)
[2018-09-06 15:16] LABS: ABSOLUTE NEUTROPHILS 11.4 thou/uL (1.4-8.2); BASOPHILS 0.3 % (0.0-2.0); EOSINOPHILS 0.1 % (0.0-3.0); HEMATOCRIT 38.3 % (42.0-52.0); HEMOGLOBIN 12.6 gm/dL (14.0-18.0); LYMPHOCYTES 2.7 % (24.0-44.0); MCH 29.6 pg (26.0-34.0); MCHC 32.8 g/dL (28.0-37.0); MCV 90.4 fL (80.0-100.0); MONOCYTES 1.7 % (1.0-8.0); PLATELET COUNT 222 thou/uL (150-400); POLYS 95.2 % (36.0-66.0); RBC 4.24 mil/uL (4.50-6.00); RDW 15.7 % (10.5-14.5); WBC 11.9 thou/uL (4.0-11.0)
[2018-09-06 15:23] LABS: CALCIUM 8.7 mg/dL (8.5-10.1); CREATININE 0.9 mg/dL (0.7-1.3); POTASSIUM 3.9 mmol/L (3.5-5.1)
[2018-09-06 15:29] LABS: ALBUMIN 3.2 g/dL (3.4-5.0); MAGNESIUM 2.1 mg/dL (1.8-2.4); TOTAL BILIRUBIN 0.2 mg/dL (<0.1-1.0); TOTAL PROTEIN 6.6 g/dL (6.4-8.2)
--- NOTE | 2018-09-06 17:43 | NUR ---
PT A DIRECT ADMIT FROM DR. JI OFFICE. ADMISSION HX AND ASSESSMENT COMPLETED. VSS. DR KNIGHT NOTIFED. ORDERS NOTED. NSR ON TELI. RT TREATMENT PROVIDED. NO RESPITORY DISTRESS NOTED. WILL CONTINUE TO MONITOR.
[2018-09-06 19:26] VITALS: BP 154/72
[2018-09-06] MEDS ORDERED: TRAMADOL 50 MG50 MG PO (20:43)
[2018-09-07 04:00] VITALS: BP 134/69
--- NOTE | 2018-09-07 07:57 | NUR ---
PT. C/O PAIN EARLY ON THE NIGHT; PROVIDER CONTACTED; ORDERS RECEIVED; ABLE TO REST DURING THE NIGHT; ASSESSMENT CHARGED; FOLLOWING POC.
[2018-09-07 08:10] VITALS: BP 150/73
[2018-09-07 12:00] VITALS: BP 157/77
[2018-09-07 15:15] VITALS: BP 139/74
--- NOTE | 2018-09-07 15:19 | NUR ---
Case opened to follow for dc planning. Real Estate Agent/Broker visited with the pt at bedside. Pt is a&ox4 and familiar with cm role from previous hospital stays. The pt has home o2 through [facility]. He normall wears 2liters at rest, 4Liters with activity and 3 at noc. He lives with his and has 2 steps to enter his home. He has a rwalker if needed. He has had [facility] last spring but does not feel he will be homebound at sd. He is hoping to resume his outpt pulm rehab. He has been doing this 2xwkly. No dc planning needs identified at this time. Will follow along should needs arise.
--- NOTE | 2018-09-07 16:06 | HC ---
[facility] [place] [address] CONSULTATION Name: MOISES AQUINO Room #: 209-P [facility] IN M.R.#: [id number] Admission: 09/06/18 Attend Phys: Tom Mazariegos MD Discharge: Date of : 52 Report #: [id number] THIS REPORT FOR: //name// CC: Tom Brown PRIMARY CARE PHYSICIAN: Abhinav Brown MD. REFERRAL PHYSICIAN: Dr. Walker. REASON FOR REFERRAL: Dyspnea. HISTORY OF PRESENT ILLNESS: The patient is a 68-year-old white male with severe COPD, admitted with profound hypoxia and dyspnea. A pulmonary consultation was requested. The patient is known to the Pulmonary Service. He has known severe pulmonary impairment. His baseline FEV1 is around 1. Yesterday, spirometry showed FEV1 of 0.7 liter. He was doing fairly well until a few days ago when he started to develop increasing cough, dyspnea. He was seen in the Emergency Room on 09/03/2018. He was evaluated. He was given prednisone. Antibiotics were not given. He presents on this occasion with increasing dyspnea, cough productive of purulent sputum. His hypoxia was also worsened. He now requires 10 liters with ambulation, he requires 6 liters at rest. He is normally on 4 liters of O2, saturation 92%. Otherwise, denies any recent nausea, vomiting, diarrhea. PAST MEDICAL HISTORY: COPD as mentioned above, chronic O2 at 4 liters, baseline FEV1 of 1.0 liter. Abdominal aortic aneurysm, gastroesophageal reflux disease, hyperlipidemia, hypertension, history of subdural hematoma, tobacco abuse. PAST SURGICAL HISTORY: Notable for abdominal aortic aneurysm stent graft placement, toya hole surgery for subdural hematoma in 11/2017 following a fall. Past history of pneumothorax, status post chest tube placement. Herniorrhaphy, vasectomy. ALLERGIES: LEVAQUIN, REACTIONS UNSPECIFIED. HOME MEDICATIONS: List reviewed. This includes finishing course of prednisone 40 mg once a day, Proventil, nebulized DuoNeb q.i.d., amiodarone, Lipitor, aspirin, Klonopin, Colace, Lasix, Neurontin, Mucinex, metoprolol, Protonix, K-Dur, Zoloft, Ultram, multivitamins. [address] [address] CONSULTATION Name: MOISES AQUINO Room #: 209-P [facility] IN .R.#: [id number] Admission: 09/06/18 Attend Phys: Tom Mazariegos MD Discharge: Date of : 52 Report #: [id number] FAMILY HISTORY: Notable for myocardial infarction in mother who at the age of 80. Father of heart disease at age of 94. SOCIAL HISTORY: He has smoked up to 20 years, he quit in 1999. He does drink socially. REVIEW OF SYSTEMS: As mentioned above, otherwise 10-point system review negative. PHYSICAL EXAMINATION: GENERAL: He is awake, alert, in moderate distress. His saturation 82% on 4 liters of O2. VITAL SIGNS: Blood pressure 148/70 mmHg, pulse is 60. Currently, saturating 96% on 6 liters of O2. HEENT: Normocephalic, atraumatic. NECK: Supple, no lymphadenopathy or thyromegaly. CHEST: Breath sounds are decreased. Air movements are decreased, with moderate expiratory wheezes. Few scattered crackles in the bases. CARDIOVASCULAR: Normal S1, S2. No murmurs or gallop. There is no JVD. There is no carotid bruit. Pulses are 2+/4+ bilaterally. ABDOMEN: Soft, nontender, no organomegaly or masses felt. GENITOURINARY: Deferred. RECTAL: Deferred. EXTREMITIES: There is no edema, cyanosis or clubbing. LABORATORY DATA: Portable chest x-ray shows hyperexpanded lung field, haziness involving the right lower lung field, cardiac silhouette is normal. I do not see any lung mass or effusion seen. BNP is 630. Electrolytes are normal, creatinine is normal. Liver enzymes are normal. WBC is 11,900, hemoglobin is 12.6, platelets are normal. Arterial blood gas revealed pH 7.38, pCO2 of 50, pO2 of 73 on 4 liters of O2. Albumin 3.2. IMPRESSION: 1. Vqrmu-uw-zehcsqj hypercapnic hypoxic respiratory failure in this 68-year-old white male. Etiology due to ongoing exacerbation of severe chronic obstructive pulmonary disease. With his productive cough, cannot rule out lower respiratory tract infection or even pneumonia. 2. Chronic obstructive pulmonary disease, very severe impairment, baseline FEV1 of 1 liter, today is 0.7 liters. 3. Possible pneumonia, right lower lobe. 4. Chronic hypoxic hypercapnic respiratory failure, normally on 4 liters of O2. 5. Gastroesophageal reflux disease. 6. Hypertension. 7. History of subdural hematoma following a fall in 11/2017, status post toya hole. 8. History of pneumothorax following his fall, status post tube thoracostomy. [facility] [address] [facility] [place] [address] CONSULTATION Name: MOISES AQUINO Room #: 209-P ADM IN M.R.#: [id number] Admission: 09/06/18 Attend Phys: Tom Mazariegos MD Discharge: Date of : 52 Report #: [id number] RECOMMENDATION: Agree with current treatment plans including corticosteroids, bronchodilators, broad-spectrum antibiotics. DVT and GI prophylaxis recommended. In review of the records including current H and P performed by the medicine team, I do not believe the patient has a history of lung mass. This will be verified with the medicine team. Thank you for this consultation. <ELECTRONICALLY SIGNED> By: Chente Etienne MD 09/07/18 1606 1109 1158 Chente Etienne MD /nt
[2018-09-07 17:51] VITALS: BP 139/74
--- NOTE | 2018-09-08 03:39 | NUR ---
ASSUME CARE 1900. PT/VITALS STABLE. INTERMITTENT NECK PAIN NOTED WITH MEDS FOR RELIEF. UP AD SE. ASSESSMENT CHARTED. PROGRESSING WELL WITH POC. PLAN IS CONTINUE TO TREAT WITH STEROIDS AND BRONCHODILATORS AND FOLLOW UP WITH RESP FUNCTION. WILL CONTINUE TO MONITOR AND FOLLOW WIHT POC
[2018-09-08 04:45] VITALS: BP 158/73
[2018-09-08 05:19] LABS: HEMATOCRIT 34.3 % (42.0-52.0); HEMOGLOBIN 11.4 gm/dL (14.0-18.0); MCH 29.9 pg (26.0-34.0); MCHC 33.2 g/dL (28.0-37.0); MCV 90.1 fL (80.0-100.0); RBC 3.81 mil/uL (4.50-6.00); RDW 15.8 % (10.5-14.5); WBC 9.9 thou/uL (4.0-11.0)
[2018-09-08 05:35] LABS: CALCIUM 8.6 mg/dL (8.5-10.1); CREATININE 0.8 mg/dL (0.7-1.3); POTASSIUM 4.3 mmol/L (3.5-5.1)
[2018-09-08 07:50] VITALS: BP 151/68
[2018-09-08 11:45] VITALS: BP 147/72
--- NOTE | 2018-09-08 15:37 | NUR ---
ASSESSMENTS COMPLETED AND DOCUMENTED. NO S/SX OF CARDIAC OR RESP DISTRESS. NO COMPLAINTS VOICED. PT WORKED WITH PT AND OT TODAY. WILL CONTINUE TO MONITOR PER ORDERS.
[2018-09-08 15:55] VITALS: BP 148/83
--- NOTE | 2018-09-08 18:07 | NUR ---
ASSUMED PATIENT FROM LUCY LINN AROUND 1600. PATIENT UP AD SE IN ROOM, 4L NC. A&O X4. NO COMPLAINTS STATED. TOLERATING DIET.
[2018-09-08 19:31] VITALS: BP 169/83
--- NOTE | 2018-09-08 22:17 | NUR ---
PT IS ALERT AND ORIENTED X 4. STATES THAT HE HAS CHRONIC NECK PAIN FROM HIS ARTHRITIS. PT WANTS TO BE ABLE TO BE DC'D BEFORE THE [employer] GAME ON TUESDAY. HE STATES THAT HE IS FEELING A LITTLE BETTER, HOWEVER HIS LUNGS STILL SOUND COURSE. ASSESSMENT CHARTED. WILL CONTINUE TO MONITOR.
[2018-09-08 23:06] LABS: ADENOVIRUS Negative (Negative); INFLUENZA A Negative (Negative); INFLUENZA B Negative (Negative); METAPNEUMOVIRUS Negative (Negative); PARAINFLUENZA 1 Negative (Negative); PARAINFLUENZA 2 Negative (Negative); PARAINFLUENZA 3 Negative (Negative); RHINOVIRUS Negative (Negative); RSV A Negative (Negative); RSV B Negative (Negative)
[2018-09-09 04:55] VITALS: BP 135/71
[2018-09-09 07:55] VITALS: BP 147/73
--- NOTE | 2018-09-09 10:46 | NUR ---
PT CARE ASSUMED APPROX 0700. PT ALERT AND ORIENTED X4. DENIES SOA. C/O CHRONIC PAIN IN NECK THIS AM. PAIN CONTROLLED WITH TRAMADOL. PT DENIES PAIN AT THIS TIME. VSS. BS SLIGHTLY ELEVATED BUT DID NOT REQUIRE TREATMENT. UP WITH STEADY GAIT. IV STEROID TAPER REMAINS IN POC. PT CARE TRANFERRED TO ONCOMING RN AT THIS TIME. REPORT GIVEN AND RECEIVING NURSE DENIES QUESITONS OR CONCERNS REGARDING PT'S POC OR ANY INFO GIVEN. NO DISTRESS NOTED.
[2018-09-09 12:05] VITALS: BP 143/73
[2018-09-09 16:05] VITALS: BP 135/62
[2018-09-09 18:29] VITALS: BP 153/78
--- NOTE | 2018-09-10 04:48 | NUR ---
ASSUMED CARE OF PATIENT AT 1899. VSS. ASSESSMENT COMPLETED AT 2054 AND IS DOCUMENTED. PT CONTINUES ON 4L NC. LEFT WRIST PIV D/C D/T INFILTRATION. IV INSERTED INTO RIGHT WRIST PATENT. IV ABT INFUSED WITHOUT COMPLICATION. PRN TRAMADOL GIVEN X1 FOR C/O CHRONIC NECK PAIN WITH DESIRED EFFECT ACHIEVED. PT UP TO BATHROOM AD SE SEVERAL TIMES THROUGHOUT THE NIGHT. HS ACCUCHECK WAS 155 AND 3U INSULIN GIVEN PER DR ORDER. PT A&O X4 AND ABLE TO CALL OUT APPROPRIATELY. PT CURRENTLY ASLEEP IN BED IN NO ACUTE DISTRESS. CALL LIGHT WITHIN REACH. BED LOCKED AND IN LOWEST POSITION. WCTM.
--- NOTE | 2018-09-10 05:49 | NUR ---
THIS NURSE AGREES WITH TOWEL DISTRIBUTOR'S ASSESSMENT AND NOTES ON THIS PATIENT.
[2018-09-10 07:13] LABS: HEMATOCRIT 39.1 % (42.0-52.0); HEMOGLOBIN 12.7 gm/dL (14.0-18.0); MCH 29.4 pg (26.0-34.0); MCHC 32.6 g/dL (28.0-37.0); MCV 90.3 fL (80.0-100.0); PLATELET COUNT 263 thou/uL (150-400); RBC 4.32 mil/uL (4.50-6.00); RDW 15.8 % (10.5-14.5); WBC 15.8 thou/uL (4.0-11.0)
[2018-09-10 07:23] LABS: CALCIUM 8.9 mg/dL (8.5-10.1); CREATININE 0.8 mg/dL (0.7-1.3); POTASSIUM 4.4 mmol/L (3.5-5.1)
[2018-09-10 07:31] VITALS: BP 143/81
[2018-09-10 08:20] LABS: ABSOLUTE NEUTROPHILS 13.9 thou/uL (1.4-8.2)
[2018-09-10] MEDS ORDERED: DOXYCYCLINE 10100 MG PO (09:21)
[2018-09-10] MEDS ORDERED: KEFLEX500 M1 PO (09:21)
--- NOTE | 2018-09-10 10:41 | NUR ---
ASSUMED CARE OF PATIENT THIS MORNING. PATIENT IS A&OX4. 4L OF O2, Q4H BREATHING TREATMENTS. ON PREDNISONE WHICH PHYSICIAN WROTE THE ORDER TO TAMPER DOWN. HE CURRENTLY GETS HIS BLOOD SUGAR CHECKED AND ON SLIDING SCALE FOR INSULIN. PATIENT WAS ASSESSED THIS MORNING, DIMINISHED BREATH SOUNDS, ACTIVE BOWEL SOUNDS, LAST BOWEL MOVEMENT WAS THIS MORNING. PATIENT WILL BE DISCHARGE HOME THIS AFTERNOON, WITH ONE WRITTEN PRESCRIPTION, AND ONE CALLED IN SCRIPT. PATIENT IS CURRENTLY SITTING IN BED, WITH CALL LIGHT WITHIN REACH. PATIENT CALLS OUT APPROPRIATELY.
[2018-09-10 11:44] VITALS: BP 143/81
--- NOTE | 2018-09-10 13:33 | NUR ---
PT DISCHARGED HOME WITH SELF CARE. WILL FOLLOW UP WITH PRIMARY CARE PHYSICIAN. SENT HOME WITH ONE PRESCRIPTION, THE OTHER ONE CALLED INTO PHARMACY. IV DC'D. DISCHARGE INSTRUCTIONS REVIEWED WITH PATIENT, PATIENT SIGNED IN AGREEMENT. ALL BELONGINGS PACKED UP AND PATIENT WHEELED TO EMERGENCY EXIT WITH OXYGEN TANK 4L TO MEET HIS RIDE.
== END 2018-09-10 13:36 | disposition home or self-care (01) | DRG 189 ==
LOC: TBA 13:11 → 2N 13:13 → SICU 09-09 18:26
PROVIDERS: Internal Medicine; Nurse Practitioner; Pediatrics; ADMIT Hospitalist
DX: J96.22 Acute and chronic respiratory failure with hypercapnia (principal); J44.1 Chronic obstructive pulmonary disease with (acute) exacerbation; I48.92 Unspecified atrial flutter; J96.21 Acute and chronic respiratory failure with hypoxia; K21.9 Gastro-esophageal reflux disease without esophagitis; I10 Essential (primary) hypertension; E78.5 Hyperlipidemia, unspecified; I48.0 Paroxysmal atrial fibrillation; M19.90 Unspecified osteoarthritis, unspecified site; G62.9 Polyneuropathy, unspecified; R91.1 Solitary pulmonary nodule; T38.0X5A Adverse effect of glucocorticoids and synthetic analogues, initial encounter; Y92.89 Other specified places as the place of occurrence of the external cause; Z93.3 Colostomy status; Z99.81 Dependence on supplemental oxygen; Z87.891 Personal history of nicotine dependence; Z79.82 Long term (current) use of aspirin; Z79.51 Long term (current) use of inhaled steroids; Z79.899 Other long term (current) drug therapy; Z88.1 Allergy status to other antibiotic agents; Z82.49 Family history of ischemic heart disease and other diseases of the circulatory system
CPT/HCPCS: 10081; 10797; 15002

== ENCOUNTER → 2018-11-24 | Outpatient (CLI) | payer OTHER ==
[~2018-11-24] MED LIST changes: +ERYTHROMYCIN250 M1 PO; +INCRUSE ELLI62.5 MCG; +IPRATROPIU0.2 MG/1 M INH; +KEFLEX500 M1 PO; +SERTRALINE HCL50 MG PO; +TRAMADOL 50 MG50 MG PO
[2018-11-24 12:32] LABS: CREATININE 0.9 mg/dL (0.7-1.3)
== END ==
LOC: CAT 11:53
PROVIDERS: Nuclear Medicine Nuclear Cardiology
DX: Z01.812 Encounter for preprocedural laboratory examination (principal); I71.4 Abdominal aortic aneurysm, without rupture; J98.4 Other disorders of lung; N28.1 Cyst of kidney, acquired; M51.37 Other intervertebral disc degeneration, lumbosacral region; Z88.8 Allergy status to other drugs, medicaments and biological substances

== ENCOUNTER → 2019-03-07 | Outpatient (CLI) | payer OTHER ==
[~2019-03-07] VITALS: Ht 167.6 cm; Wt 97.5 kg
[~2019-03-07] MED LIST changes: +ASPIR 8181 MG PO; +AZITHROMYCIN 2250 MG PO; +BACLOFEN 10MG T10 MG PO; +CLONAZEPAM 0.50.5 M1 PO; +FLOMAX0.4 MG PO; +MELOXICAM7.5 MG PO; +ZANAFLEX4 M1 PO
[2019-03-07 09:09] VITALS: BP 131/71
--- NOTE | 2019-03-07 09:26 | NUR ---
Pain Clinic Assessment: 1. History of Osteoarthritis: History of Rheumatoid Arthritis: 2. Height: 5 ft. 6 in. 167.6 cm. Weight: 215.0 lb. oz. 97.524 kg. Patient's BMI: 34.7 3. Vital Signs: BP: 131/71 Pulse: 65 Resp: 14 Temp: 02 Sat: 96 ECG Mon: 4. Pain Intensity: 9 5. Fall Risk: Dizziness: N Needs help standing or walking: N Fallen in the last 3 months: Y Fall risk comments: 6. Patient on Blood Thinner: None 7. History of Hypertension: Y 8. Opioid Therapy greater than 6 weeks: N Opiate Contract Signed: 9. Risk Assessment Tool Provided: LOW 10. Functional Assessment Tool: 11. Recreational Drug Use: Never Drug Type: Tobacco Use: Never Smoker Tobacco Type: Amount or Packs/day: How Many Years: Alcohol Use: Yes Frequency: Weekly Quant: 2
--- NOTE | 2019-03-14 08:18 | HPC ---
[facility] [place] [address] PAIN MANAGEMENT CONSULTATION Name: MOISES AQUINO Room #: REG [facility].#: [id number] Admission: 03/07/19 ������������������ Attend Phys: Markus Monreal DO Discharge: ������������������ Date of : 52 Report #: [id number] THIS REPORT FOR: //name// CC: ALTAGRACIA Valladares DATE OF SERVICE: 03/07/2019 REFERRING PHYSICIAN: Juvencio Leija, nurse practitioner. CHIEF COMPLAINT: Neck pain. HISTORY OF PRESENT ILLNESS: As you know, the patient is a 68-year-old male with longstanding history of neck pain. The patient indicates pain began on 08/22/2009. He denies specific injury or trauma. The patient indicates he has "just put up with it" for years, but this has progressively worsened. He discussed this with his primary care team who trialled conservative medication management initially. This did not provide much in the way of improvement. He subsequently underwent an MRI of the cervical spine, which showed arthritic changes at multiple levels, but no central canal or neural foraminal stenosis. He was given the diagnosis of cervical spondylosis and referred to our clinic to discuss treatment options for chronic neck pain. The patient indicates pain is continuous, describes the pain as shooting, aching, throbbing, sharp and stabbing, places current pain score at 9/10, daily average at 8-9/10, worst pain has been is 10/10. The patient states that his pain is exacerbated with "driving over 2 hours of time." It is better with heat and cold compresses and medication management. He has been referred to our service to discuss options for interventional treatments. PAST MEDICAL HISTORY: 1. Hypertension. 2. Chronic lung disease. 3. Atrial fibrillation. 4. Chronic colon problems status post colon resection. 5. Degenerative joint disease. 6. Osteoarthritis. 7. Benign prostatic hypertrophy. 8. Anxiety disorder. 9. Depression. 10. Gastroesophageal reflux disease. 11. Dyslipidemia. PAST SURGICAL HISTORY: [facility] [address] [place] [address] PAIN MANAGEMENT CONSULTATION Name: ÁLVAROMOISES MERCADO Room #: REG [facility].#: [id number] Admission: 03/07/19 ������������������ Attend Phys: Markus Monreal DO Discharge: ������������������ Date of : 52 Report #: [id number] 1. Colon resection in 1980. 2. Herniorrhaphy in 1997. SOCIAL HISTORY: The patient denies tobacco, IV or illicit drug use. Admits to 2 alcohol beverages per week. He is retired, he retired about 3 years ago. 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 He is not in litigation in regards to pain. He is unaccompanied at today's visit. REVIEW OF SYSTEMS: Positive for fatigue and weakness, frequent and recurrent headaches, wearing corrective eyewear, cataracts, shortness of breath walking or lying flat, cough, asthma, wheezing secondary to COPD, constipation interspersed with intermittent diarrhea, frequent urination, nocturia, incontinence and dribbling to urine, head injury, neck pain, upper extremity symptoms, excessive thirst and urination. All other review of systems negative per 12-point review of systems other than those listed in the history of present illness. Pain impact score 42/70, indicating moderate interference to daily activities secondary to pain. ALLERGIES: No known drug allergies. CURRENT MEDICATIONS: Aspirin 81 mg once a day, doxycycline 100 mg once a day, tamsulosin 0.4 mg once a day, Pulmicort 0.5 mg inhaled twice a day, azithromycin 250 mg 3 times a week, Zanaflex 4 mg per day, clonazepam 0.5 mg one to xav-kej-o-half tab p.r.n. anxiety, tramadol 50 mg every 6 hours p.r.n. pain, ipratropium bromide inhaled 4 times a day, sertraline 50 mg once a day, furosemide 20 mg per day, gabapentin 100 mg once a day, albuterol 2 puffs q. 4 hours p.r.n., pantoprazole 40 mg per day, amiodarone 200 mg once a day, atorvastatin 10 mg per day. IMAGING: MRI cervical spine obtained on 05/05/2018 shows brainstem and cerebellum are normal, reversal of normal cervical lordosis. There are degenerative changes, most prominent at the C2-C3 and C3-C4 level with reactive edema. There is no impingement of the central canal or neural foramen. At C4-C5, small disk protrusion without impingement of the overall canal, prominent uncovertebral joint degenerative changes, mild to minimal foraminal tapering. At C5-C6, central canal protrusion without impingement on the canal, foraminal impingement is evident but is not significant, no displacement of nerves. At C6-C7, central disk protrusion without impingement of the central canal, minimal foraminal tapering. Visualized upper thoracic spine normal. PQRS: The patient has known osteoarthritic changes of the cervical spine and lumbar spine, no rheumatoid arthritis. He is placing pain intensity today at 9/10. He is not a fall risk, but has had a fall in the last 3 months. He does not use any type of ambulatory device. He is not on blood thinners, but is [address] [address] PAIN MANAGEMENT CONSULTATION Name: MOISES AQUINO Room #: REG [facility]#: [id number] Admission: 03/07/19 ������������������ Attend Phys: Markus Monreal DO Discharge: ������������������ Date of : 52 Report #: [id number] treated for hypertension. He is also treated for atrial fibrillation, again without anticoagulation. The patient is not on any long-term opioid medication. He has a low opioid addiction potential based on our assessment tool. Pain impact score 42/70, moderate interference to daily activities secondary to pain. PHYSICAL EXAMINATION: VITAL SIGNS: Blood pressure 131/71, pulse 65, respiratory rate 14 and unlabored. The patient is 96% on room air. Height 5 feet 6 inches tall, weight 215 pounds, BMI calculated 34.7. GENERAL: Well-developed, well-nourished, well-hydrated, obese 68-year-old male. He appears his stated age. He is placing current pain score at 9/10. HEENT: Normocephalic, atraumatic. Pupils equal, round, reactive to light. Extraocular muscles are intact. Sclerae nonicteric without injection. NEUROLOGIC: Cranial nerves 2-12 grossly intact. Speech fluent. The patient deemed a good historian. LUNGS: Clear. No wheezes, rhonchi or rales. CARDIOVASCULAR: Regular. No appreciable gallop, no rub. ABDOMEN: Soft, mildly obese, normoactive bowel sounds. EXTREMITIES: Show no clubbing, no cyanosis, and no edema. MUSCULOSKELETAL: Upper extremity strength equal and symmetrical 5/5. Muscle bulk and tone equal and symmetrical when comparing left upper extremity to right. Spurling test is negative. He has palpatory tenderness over the paraspinal musculature of cervical spine. No spinous process tenderness. There is a limitation of mobility, especially with rotation and lateral flexion, indicative of cervical facet arthropathy. No neuropathic component noted in physical exam today. Deep tendon reflexes are symmetrical at biceps, brachioradialis and triceps. ASSESSMENT: 1. Cervical spondylosis without radiculopathy. 2. Myofascial pain. 3. Facet arthropathy of the cervical spine. 4. Chronic intractable pain. PLAN: 1. Based on today's physical exam and history the patient has provided, the description the patient uses in regards to pain as well as the discrete location of his symptoms, likely source of the patient's pain is cervical facets. We discussed with the patient treatment options for cervical facet arthropathy without radiculopathy. The following was discussed with the patient today. We discussed physical therapy, stretching exercises and traction techniques. This is the gold standard treatment for cervical facet arthropathy pain. We discussed medication management as a treatment course. This would include nonsteroidal anti-inflammatories if the patient can take these medications and nonopioid related pain medications. We discussed treatment with cervical facet [facility] [address] [place] [address] PAIN MANAGEMENT CONSULTATION Name: MOISES AQUINO Jordy Room #: REG [facility]#: [id number] Admission: 03/07/19 ������������������ Attend Phys: Markus Monreal DO Discharge: ������������������ Date of : 51 Report #: [id number] injections and ultimately surgical stabilization of the spine. After reviewing the risks and benefits of all proposed treatment options, the patient chose to go with conservative treatments and undergoing physical therapy with traction techniques. 2. The patient will be sent for physical therapy twice a week for 6 weeks. We recommend standardized treatment for cervical facet arthropathy with traction techniques and modalities such as ultrasound therapy and if necessary, percutaneous electrical nerve stimulation and heat and cold compresses. This should help regain mobility and improvement in overall pain. The patient was advised once he begins to gain effect from the physical therapy, he is not to discontinue this activity. He can discontinue the formalized program, but will need to continue this activity at home to maintain efficacy. 3. We made minor changes in the patient's medications to assist in pain control. We started the patient on meloxicam 7.5 mg 1 tab p.o. b.i.d. This will be added for baseline anti-inflammatory efficacy. I have given the patient #60 tablets, advised to watch for dyspepsia, worsening of blood pressure, lower extremity edema. If he notes any side effects, discontinue immediately. He was given this prescription with two refills, 3 months' worth of medication. 4. For the muscle spasming, the patient has been experiencing in the cervical and upper thoracic area, I provided the patient with baclofen 10 mg dose 1 tab p.o. t.i.d. p.r.n. muscle spasms. I have given the patient #90 tablets to take as many as 3 a day, assuming he is having no side effects of sleepiness, disorientation, confusion and mental slowing. The patient was advised not to drive or operate heavy equipment while on this medication as it can cause slower response time and potential injury. 5. We will see the patient back in followup visit on an as needed basis. At this point, conservative treatment has been provided. He can follow up with us or his PCP for further discussions of therapy options. 6. We wish to thank Dr. Ehsan Mario and his nurse practitioner, Juvencio Leija for the opportunity to see the patient in consultation. We will keep you apprised of his response to treatment if he does return for more aggressive treatment options. ��������������������������������������������� <ELECTRONICALLY SIGNED> ���������������������������������������� By: Markus Monreal DO ��������������������������������������������� 03/14/19 08 1557 17 Markus Monreal DO /lorri
== END ==
LOC: PAIN 08:14
DX: M47.812 Spondylosis without myelopathy or radiculopathy, cervical region (principal); M12.88 Other specific arthropathies, not elsewhere classified, other specified site; M79.18 Myalgia, other site; I10 Essential (primary) hypertension; I48.91 Unspecified atrial fibrillation; E78.5 Hyperlipidemia, unspecified; K21.9 Gastro-esophageal reflux disease without esophagitis; F32.9 Major depressive disorder, single episode, unspecified; F41.9 Anxiety disorder, unspecified

== ENCOUNTER 2019-03-26 07:54 | Inpatient (IN) | payer OTHER ==
[2019-03-26] VITALS (36 sets, daily range): BP systolic 74–155; BP diastolic 46–79
[~2019-03-26] VITALS: Ht 185.4 cm; Wt 109.9 kg
[2019-03-26 08:15] LABS: HEMATOCRIT 37.9 % (42.0-52.0); HEMOGLOBIN 12.1 gm/dL (14.0-18.0); MCH 29.9 pg (26.0-34.0); MCHC 31.9 g/dL (28.0-37.0); MCV 93.7 fL (80.0-100.0); PLATELET COUNT 200 thou/uL (150-400); RBC 4.05 mil/uL (4.50-6.00); RDW 16.1 % (10.5-14.5); WBC 8.6 thou/uL (4.0-11.0)
[2019-03-26 08:20] LABS: BE(vivo) -5.3 mmol/L (-2 to +3); HCO3 25.6 mmol/L (22.0-26.0); PO2 445.2 mmHg (80.0-100.0); sO2 99.7 % (92.0-98.0)
[2019-03-26 08:21] LABS: PCO2 80.7 mmHg (35.0-45.0)
[2019-03-26 08:26] LABS: URINE BILIRUBIN NEGATIVE (Negative); URINE BLOOD 3+ (Negative); URINE CLARITY CLOUDY; URINE COLOR YELLOW; URINE GLUCOSE-RANDOM* 1+ (Negative); URINE KETONES NEGATIVE (Negative); URINE LEUKOCYTES-REFLEX NEGATIVE (Negative); URINE NITRITE-REFLEX NEGATIVE (Negative); URINE PROTEIN (DIPSTICK) 3+ (Negative); URINE SPECIFIC GRAVITY >= 1.030 (1.005-1.035); URINE UROBILINOGEN 0.2 E.U./dl (0.2-1.0)
[2019-03-26 08:29] LABS: ANION GAP 7 mmol/L (7-16); BUN 22 mg/dL (7-18); CALCIUM 8.3 mg/dL (8.5-10.1); CHLORIDE 101 mmol/L (98-107); CO2 28 mmol/L (21-32); GLUCOSE 240 mg/dL (74-106); POTASSIUM 4.9 mmol/L (3.5-5.1); SODIUM 136 mmol/L (136-145)
[2019-03-26 08:39] LABS: ALBUMIN 3.4 g/dL (3.4-5.0); DIRECT BILIRUBIN 0.1 mg/dL (<0.1-0.3); SGOT 69 U/L (15-37); SGPT 84 U/L (30-65); TOTAL BILIRUBIN 0.3 mg/dL (<0.1-1.0); TOTAL PROTEIN 6.6 g/dL (6.4-8.2); TROPONIN-I <0.06 ng/mL (<0.06)
[2019-03-26 08:43] LABS: URINE RBC 3-10 Few /HPF (0-2)
[2019-03-26 08:44] LABS: AMORPHOUS URATES Moderate /LPF (None Seen); FINE GRANULAR CASTS 0-3 Few /LPF (None Seen); SQUAMOUS 0-3 Few /LPF (0-3); URINE WBC-REFLEX 0-5 Rare /HPF (0-5)
[2019-03-26 09:22] LABS: BE(vivo) -1.6 mmol/L (-2 to +3); HCO3 32.4 mmol/L (22.0-26.0); PO2 163.6 mmHg (80.0-100.0)
[2019-03-26 09:23] LABS: ABSOLUTE NEUTROPHILS 7.5 thou/uL (1.4-8.2); METAMYELOCYTES 1 %; PLATELET ESTIMATE NORMAL
[2019-03-26 09:25] LABS: PCO2 124.1 mmHg (35.0-45.0); pH 7.034 (7.360-7.450)
[2019-03-26 10:47] LABS: BE(vivo) -3.1 mmol/L (-2 to +3); HCO3 29.7 mmol/L (22.0-26.0); PO2 172.2 mmHg (80.0-100.0); sO2 98.4 % (92.0-98.0)
[2019-03-26 10:48] LABS: PCO2 105.7 mmHg (35.0-45.0); pH 7.067 (7.360-7.450)
[2019-03-26 12:51] LABS: BE(vivo) -4.5 mmol/L (-2 to +3); HCO3 28.5 mmol/L (22.0-26.0); PO2 157.4 mmHg (80.0-100.0)
[2019-03-26 12:52] LABS: PCO2 104.7 mmHg (35.0-45.0); pH 7.053 (7.360-7.450)
--- NOTE | 2019-03-26 14:35 | NUR ---
CONSULTED TO PLACE A PICC FOR THIS PATIENT POST RR ARREST. ORDER AND CONSENT NOTED. THE PATIENT IS NONRESPONSIVE TO TEACHING SO I DID DISCUSS BENIFITS AND RISKS OF DVT AND INFECTION WITH THE PATIENTS . THE RIGHT UPPER ARM BASILIC WAS WIDLEY PATENT. A #5F TRIPLE LUMEN POWER PICC WAS PLACED PER HOSPITAL POLICY AFTER A BEDSIDE TIMEOUT WAS COMPLETE. THE PICC WAS TRIMMED TO 46CM AND ADVANCED TO 46CM WITHOUT DIFFICULTY. A STAT CHEST XRAY WAS ORDERED FOR CONFIRMATION
[2019-03-26 14:37] LABS: BE(vivo) -2.9 mmol/L (-2 to +3); PO2 159.5 mmHg (80.0-100.0); sO2 97.9 % (92.0-98.0)
[2019-03-26 14:42] LABS: PCO2 119.1 mmHg (35.0-45.0); pH 7.034 (7.360-7.450)
--- NOTE | 2019-03-26 15:36 | 2DMMODE ---
[facility] [place] [place] [address] 2 D/M-MODE ECHOCARDIOGRAM Name: KENIAMOISES Jordy Room #: 245-P [facility] ..#: [id number] Admission: 03/26/19 Attend Phys: Tom Mazariegos MD Discharge: Date of : 52 Date of Service: 03/26/19 1536 Report #: [id number] THIS REPORT FOR: //name// APPROVED REPORT Study performed: 03/26/2019 14:05:32 EXAM: Comprehensive 2D, Doppler, and color-flow Echocardiogram Patient Location: ICU Room #: [facility] Status: routine BSA: 2.24 HR: 61 bpm BP: 161/77 mmHg Other Information Study Quality: Fair Indications COPD Dyspnea Hypertension/HDD 2D Dimensions RVDd: 50.46 mm IVC: 24.00 mm Aortic Valve AoV Peak Kurt.: 1.57 m/s AO Peak Gr.: 9.88 mmHg LVOT Max P.21 mmHg LVOT Max V: 1.03 m/s Mitral Valve E/A Ratio: 1.5 MV Decel. Time: 248.47 ms MV E Max Kurt.: 1.31 m/s MV A Kurt.: 0.86 m/s MV PHT: 72.06 ms IVRT: 41.52 ms Pulmonary Valve PV Peak Kurt.: 1.33 m/s PV Peak Gr.: 7.10 mmHg Pulmonary Vein P Vein S: 0.38 m/s P Vein A: 0.28 m/s [facility] [place] [address] 2 D/M-MODE ECHOCARDIOGRAM Name: MOISES AQUINO Room #: 245-P [facility] .R.#: [id number] Admission: 03/26/19 Attend Phys: Tom Mazariegos MD Discharge: Date of : 52 Date of Service: 03/26/19 1536 Report #: [id number] P Vein D: 0.56 m/s P Vein A Dur.: 120.0 msec P Vein S/D Ratio: 0.68 Tricuspid Valve TR Peak Kurt.: 4.04 m/s TR Peak Gr.: 65.20 mmHg PA Pressure: 77.00 mmHg Left Ventricle The left ventricle is normal size. There is normal LV segmental wall motion. There is normal left ventricular wall thickness. The left ventricular systolic function is normal. The left ventricular ejection fraction is within the normal range. LVEF is 55-60%. This study is not technically sufficient to allow evaluation of the LV diastolic function. Right Ventricle Right ventricle is dilated. Right ventricle is hypokinetic. Atria Left atrium is at the upper limits of normal. Right atrium is dilated. Aortic Valve The aortic valve is normal in structure. No aortic regurgitation is present. There is no aortic valvular stenosis. Mitral Valve The mitral valve is normal in structure. There is no mitral valve regurgitation noted. No evidence of mitral valve stenosis. Tricuspid Valve The tricuspid valve is normal in structure. The tricuspid valve is normal in structure. There is mild tricuspid regurgitation. Estimated PAP 70-75 mmHg. There is severe pulmonary hypertension. Pulmonic Valve The pulmonary valve is normal in structure. There is no pulmonic valvular regurgitation. Pericardium There is no pericardial effusion. <Conclusion> The left ventricular systolic function is normal. [facility] [place] [address] 2 D/M-MODE ECHOCARDIOGRAM Name: KENIAMOISES Jordy Room #: 245-P ADM IN M.R.#: [id number] Admission: 03/26/19 Attend Phys: Tmo Mazariegos MD Discharge: Date of : 52 Date of Service: 03/26/19 1536 Report #: [id number] There is normal LV segmental wall motion. LVEF is 55-60%. Right ventricle is dilated and hypokinetic. The aortic valve is normal in structure. No aortic regurgitation or stenosis The mitral valve is normal in structure. No mitral valve regurgitation. There is mild tricuspid regurgitation. Estimated pulmonary artery pressure of 70-75 mmHg. There is no pericardial effusion. <ELECTRONICALLY SIGNED> By: Prashant Evans MD, [facility] 03/26/19 1536 1536 1536 Prashant Evans MD, FACC /INF
--- NOTE | 2019-03-26 16:12 | EKG ---
[address] [employer] [place] [address] ELECTROCARDIOGRAM REPORT Name: MOISES AQUINO Room #: 245-P ADM IN M.R.#: [id number] Admission: 03/26/19 Attend Phys: Tom Mazariegos MD Discharge: Date of : 52 Report #: [id number] THIS REPORT FOR: //name// [facility] ED Test Date: 2019-03-26 Test Time: 07:53:24 Pat Name: MOISES AQUINO Department: Room: [facility] Gender: M Ammunition Specialist: JOSÉ ANTONIO : 1950 Requested By: Forrest Gorman Order Number: [id number] MD: Amarjit Méndez Measurements Intervals [place] Rate: 95 P: 0 WA: 182 QRS: -71 QRSD: 147 T: 69 QT: 441 QTc: 555 Interpretive Statements Sinus rhythm Bigeminal premature atrial contractions. Compared to ECG 09/03/2018 10:20:41 Electronically Signed On 03-26-2019 16:11:50 CDT by Amarjit Méndez [email or web address] <ELECTRONICALLY SIGNED> By: Amarjit Méndez MD 03/26/19 1611 0753 075 Amarjit Méndez MD /KJ
[2019-03-26 16:53] LABS: BE(vivo) -1.8 mmol/L (-2 to +3); HCO3 28.1 mmol/L (22.0-26.0); PO2 202.1 mmHg (80.0-100.0); sO2 99.1 % (92.0-98.0)
[2019-03-26 16:54] LABS: PCO2 74.1 mmHg (35.0-45.0); pH 7.197 (7.360-7.450)
[2019-03-27] VITALS (26 sets, daily range): BP systolic 98–143; BP diastolic 62–82
[2019-03-27 05:06] LABS: ABSOLUTE NEUTROPHILS 6.1 thou/uL (1.4-8.2); BASOPHILS 0.1 % (0.0-2.0); CREATININE 0.9 mg/dL (0.7-1.3); HEMOGLOBIN 12.1 gm/dL (14.0-18.0); LYMPHOCYTES 2.1 % (24.0-44.0); MAGNESIUM 2.1 mg/dL (1.8-2.4); MCH 29.5 pg (26.0-34.0); MCV 92.4 fL (80.0-100.0); MONOCYTES 4.8 % (1.0-8.0); PLATELET COUNT 176 thou/uL (150-400); POTASSIUM 4.1 mmol/L (3.5-5.1); RBC 4.11 mil/uL (4.50-6.00); RDW 15.9 % (10.5-14.5); WBC 6.6 thou/uL (4.0-11.0)
[2019-03-27 05:30] LABS: BE(vivo) 3.8 mmol/L (-2 to +3); HCO3 30.6 mmol/L (22.0-26.0); PCO2 55.6 mmHg (35.0-45.0); PO2 95.6 mmHg (80.0-100.0); pH 7.358 (7.360-7.450); sO2 96.9 % (92.0-98.0)
--- NOTE | 2019-03-27 06:34 | NUR ---
END OF SHIFT NOTE. ASSUMED CARE AT APPROX 1900 ON 03/26. UPON ARRIVAL PATIENTS UPPER EXTREMITIES RESTRAINED BILATERALLY, DROWSY AND INTUBATED. CT OF THE CHEST WAS OBTAINED. DOPAMINE AND PROPOFOL RUNNING. PT FOLLOWING ALL COMMANDS. NO SIGNIFICANT EVENTS OVER NIGHT.
--- NOTE | 2019-03-27 09:45 | EKG ---
[address] [employer] [address] ELECTROCARDIOGRAM REPORT Name: MOISES AQUINO Room #: 245- ADM IN M.R.#: [id number] Admission: 03/26/19 Attend Phys: Tom Mazariegos MD Discharge: Date of : 52 Report #: [id number] THIS REPORT FOR: //name// [facility] Test Date: 2019-03-26 Test Time: 18:31:51 Pat Name: MOISES AQUINO Department: Room: 245 Gender: M Recreation Director: Daniela RIVERS : 1950 Requested By: Jacquelyn Perez Order Number: [id number] MD: Prashant Evans Measurements Intervals [place] Rate: 94 P: 257 SC: 206 QRS: -72 QRSD: 128 T: 91 QT: 405 QTc: 507 Interpretive Statements Sinus or ectopic atrial rhythm with first-degree AV block Left anterior hemiblock Nonspecific intraventricular conduction delay Nonspecific ST and T wave abnormality No previous ECGs available for comparison Electronically Signed On 03-27-2019 9:45:26 CDT by Prashant Evans [email or web address] <ELECTRONICALLY SIGNED> By: Prashant Evans MD, [facility] 03/27/19 [phone] Prashant Evans MD, [facility] /EPI
--- NOTE | 2019-03-27 10:28 | NUR ---
Nutrition: If not extubated today, REC start Vital HP to reach goal 50 mL/hr
--- NOTE | 2019-03-27 15:07 | NUR ---
ASSUMED CARE OF PT AT 0700 THIS SHIFT. PT HAS BEEN COOPERATIVE, HAS DENIED PAIN THIS SHIFT. PT IS INTUBATED AND SEDATED, HOWEVER PT WAKES EASILY AND FOLLOWS ALL COMMANDS. PT HAS HAD FAMILY VISIT THIS SHIFT, EDUCATION WAS PROVIDED. PLAN OF CARE IS TO CONTINUE TO MONITOR PT CLOSELY AT THIS TIME.
--- NOTE | 2019-03-27 15:23 | NUR ---
met with patient and dtr at bedside. Patient admits cardiac arrest at home. Currently intubated. Hx of COPD. Patient resides at home with . All needs on one level. Patient has home oxygen via [employer] home patient 2 liters at rest and 4 with activity. Hx of HH with [facility] care. Independent with adls. Dtr reports her mom reported happened very fast, she was pulling car around and patient fell outside of bathroom. During discussion patient intubated and able to nod to questions and understands conversation. Casemgt following
[2019-03-28] VITALS (57 sets, daily range): BP systolic 91–170; BP diastolic 49–92
[2019-03-28 05:29] LABS: BE(vivo) 6.5 mmol/L (-2 to +3); PO2 106.8 mmHg (80.0-100.0); pH 7.381 (7.360-7.450); sO2 97.7 % (92.0-98.0)
--- NOTE | 2019-03-28 08:14 | NUR ---
ASSUMED CARE OF PT AT 1900. PT DROWSY ON LOW DOSE SEDATION PER VENT MANAGMENT. SEDATION TITRATED UP DURING NIGHT FOR PT COMFORT. PT SR ON THE MONITOR. VSS. DOPAMINE GTT TITRATED DOWN SLOWLY PER ORDER. PT AWAITING CPAP TRIAL THIS MORNING TO DECIDE ON EXTUBATING. PT MAKIN PROGRESS TOWARDS GOALS.
[2019-03-28 08:18] LABS: ABSOLUTE NEUTROPHILS 6.3 thou/uL (1.4-8.2); BASOPHILS 0.1 % (0.0-2.0); HEMATOCRIT 34.1 % (42.0-52.0); HEMOGLOBIN 10.9 gm/dL (14.0-18.0); LYMPHOCYTES 3.5 % (24.0-44.0); MCH 29.8 pg (26.0-34.0); MONOCYTES 8.8 % (1.0-8.0); PLATELET COUNT 141 thou/uL (150-400); POLYS 87.6 % (36.0-66.0); RBC 3.67 mil/uL (4.50-6.00); RDW 16.6 % (10.5-14.5); WBC 7.1 thou/uL (4.0-11.0)
[2019-03-28 08:25] LABS: ALBUMIN 2.8 g/dL (3.4-5.0); CALCIUM 7.8 mg/dL (8.5-10.1); CREATININE 0.7 mg/dL (0.7-1.3); POTASSIUM 4.2 mmol/L (3.5-5.1); TOTAL BILIRUBIN 0.2 mg/dL (<0.1-1.0); TOTAL PROTEIN 5.6 g/dL (6.4-8.2)
[2019-03-28 17:35] LABS: BE(vivo) 5.6 mmol/L (-2 to +3); HCO3 33.8 mmol/L (22.0-26.0); PCO2 68.6 mmHg (35.0-45.0); PO2 89.9 mmHg (80.0-100.0); pH 7.311 (7.360-7.450); sO2 95.8 % (92.0-98.0)
--- NOTE | 2019-03-28 18:42 | NUR ---
ASSESSMENTS AND INTERVENTIONS DOCCUMENTED. PATIENT REMAINS INTUBATED AND SEDATED. PATIENT WAS ABLE TO WRITE ON PAPER TO COMMUNICATE WITH NURSES. PATIENT WAS APPROPRIATE AND FOLLOWED COMMANDS. PATIENT COMPLAINED OF PAIN WHEN PROPOFOL WAS WEANED DOWN. PATIENT GIVEN PAIN MEDICINE AND PROPOFOL TITRATED UP TO MAKE THE PATIENT MORE COMFORTABLE. FAMILY EDUCATED ABOUT PATIENTS PLAN OF CARE. ORDERS FOR TUBE FEEDING PLACED PER DR LARSON WELL FLUID BOLUS. PATIENT PLACED ON PRECEDEX. PATIENT WEANED OFF OF VENT BUT DID NOT TOLERATE IT WELL. PATIENT PLACED BACK ON ASSIST CONTROL AND RT WILL TRY WEANING AGAIN TOMORROW PER DR LARSON. THE PLAN OF CARE IS TO CONTROL PAIN, MONTIOR AIR WAY AND CONTINUE TO ASSESS SOB
[2019-03-29] VITALS (33 sets, daily range): BP systolic 119–185; BP diastolic 64–102
[2019-03-29 04:55] LABS: BE(vivo) 6.8 mmol/L (-2 to +3); HCO3 33.1 mmol/L (22.0-26.0); PCO2 54.9 mmHg (35.0-45.0); PO2 73.9 mmHg (80.0-100.0); pH 7.398 (7.360-7.450); sO2 94.6 % (92.0-98.0)
[2019-03-29 05:20] LABS: HEMATOCRIT 37.5 % (42.0-52.0); HEMOGLOBIN 12.1 gm/dL (14.0-18.0); MCH 29.7 pg (26.0-34.0); MCHC 32.4 g/dL (28.0-37.0); MCV 91.6 fL (80.0-100.0); RBC 4.09 mil/uL (4.50-6.00); WBC 10.1 thou/uL (4.0-11.0)
[2019-03-29 05:30] LABS: CALCIUM 7.7 mg/dL (8.5-10.1); CREATININE 0.6 mg/dL (0.7-1.3); POTASSIUM 4.6 mmol/L (3.5-5.1)
[2019-03-29 11:17] LABS: BE(vivo) 4.7 mmol/L (-2 to +3); HCO3 31.1 mmol/L (22.0-26.0); PCO2 53.1 mmHg (35.0-45.0); PO2 70.8 mmHg (80.0-100.0); pH 7.385 (7.360-7.450); sO2 93.8 % (92.0-98.0)
--- NOTE | 2019-03-29 14:24 | NUR ---
1215 PT EXTUBATED ON 40% OXYGEN, PT ENCOURAGED TO COUGH AND DEEP BREATHE, NO PAIN REPORTED, RR 25, SPO2 95% FAMILY AT BEDSIDE, WILL MONITOR CLOSELY. 1250 PT SHORT OF BREATH, USING BELLY BREATHING TECHNIQUE, 2MG MORPHINE GIVEN FOR AIR HUNGER, RR 27, SPO2 96% WILL CONTINUE TO MONITOR. 1355 PT REPORTS HE CANT BREATH, COLD/CLAMMY SKIN, RESPIRATORY TO ROOM WITH BIPAP, NEO UPDATED ON CONDITION, 1MG OF ATIVAN ORDERED PER NEO, WILL MONITOR MARA.
[2019-03-30] VITALS (25 sets, daily range): BP systolic 90–179; BP diastolic 60–88
[2019-03-30 04:42] LABS: HEMATOCRIT 38.2 % (42.0-52.0); HEMOGLOBIN 12.5 gm/dL (14.0-18.0); MCH 29.7 pg (26.0-34.0); MCHC 32.7 g/dL (28.0-37.0); RBC 4.2 mil/uL (4.50-6.00); RDW 15.9 % (10.5-14.5); WBC 8.4 thou/uL (4.0-11.0)
[2019-03-30 05:21] LABS: CALCIUM 7.6 mg/dL (8.5-10.1); CREATININE 0.5 mg/dL (0.7-1.3); POTASSIUM 4.2 mmol/L (3.5-5.1)
--- NOTE | 2019-03-30 15:59 | NUR ---
PT TRANSFERED FROM ICU. ALERT AND ORIENTED. VSS. RECEIVED PRN PAIN MED FOR STERNAL PAIN WITH PARTIAL RELIEF. RT TREATMENT GIVEN ORDERED. PT ORIENTED TO THE CALL LIGHT SYSTEM . NO CONCERNS AT THIS TIME. WILL CONTINUE TO MONITOR.
--- NOTE | 2019-03-30 16:55 | NUR ---
PT EXTUBATED 03/29/19. TRANSFERRED TO CCU THIS AFTERNOON. NO W/E DC PLANNED. WILL FOLLOW LIZANDRO CHEW TO ASSIST WITH DC PLANNING.
[2019-03-31 04:05] VITALS: BP 142/72
[2019-03-31 08:44] VITALS: BP 154/82
[2019-03-31 13:49] VITALS: BP 157/72
--- NOTE | 2019-03-31 17:38 | NUR ---
ASSUME CARE AT SHIFT CHANGE. ASSESSMENTS CHARTED. MEDS GIVEN PER OCT. PT ALERT AND ORIENTED, VSS, C/O NON CARDIAC CHEST SORENESS- MANAGED WITH PO PAIN MEDS. PT UP WITH PHYS THERAY THIS SHIFT, TOLERATING FAIR, PT GOT SOB, WANTED TO GO BACK TO BED AND BE PUT ON BIPAP. O2 SATS WNL ON 5L NC AND INTERMITTENT BIPAP. APPETITE GOOD, URINE OUTPUT ADEQUATE. PT TOLERATING REGULAR DIET WELL. CUP TRIMMING MACHINE OPERATOR CONSULT PUT IN PT WOULD LIKE ENSURE DRINKS. DENIES NEEDS AT THIS TIME. WILL CONT TO MONITOR AND FOLLOW POC.
[2019-03-31 18:38] VITALS: BP 129/111
[2019-03-31 20:23] VITALS: BP 152/77
[2019-04-01 03:56] VITALS: BP 150/74
[2019-04-01 08:35] VITALS: BP 161/78
[2019-04-01 12:06] VITALS: BP 140/77
[2019-04-01 16:33] VITALS: BP 127/75
--- NOTE | 2019-04-01 17:18 | NUR ---
ASSUME CARE OF PT AT SHIFT CHANGE. ASSESSMENTS CHARTED. MEDS GIVEN PER OCT. PT ALERT AND ORIENTED, VSS- BP ELEVATED THIS AM, PROVIDER NOTIFIED, ORDERS RECEIVED. O2 SATS WNL ON 5L O2 AND BIPAP. C/O STERNAL PAIN AND INCREASED WORK OF BREATHING- MANAGED WITH PO AND IV PAIN MEDS ORDERED. URINE OUTPUT ADEQUATE, FAMILY VISITED WITH PT THIS SHIFT. PLAN IS FOR PT TO POSSIBLY GO TO REHAB OR SKILLED. DENIES NEEDS AT THIS TIME. WILL CONT TO MONITOR AND FOLLOW POC.
[2019-04-01 20:15] VITALS: BP 141/90
[2019-04-02 05:18] VITALS: BP 128/77
--- NOTE | 2019-04-02 05:37 | NUR ---
ASSUMED PT CARE AT 1900 WITH NO SIGN OF DISTRESS NOTED. SPOUSE AT BEDSIDE. PT IS ALERT AND ORIENTED. ASSESSMENT COMPLETED AND DOCUMENTED. FALL PRECAUTIONS DISCUSSED WITH PATIENT. VITAL SIGNS STABLE. PT IS ON NASAL CANNULA. SCHEDULED MEDS ADMINISTERED TO PT. PAIN MEDS ADMINISTERED UPON REQUESTED TO PT. PT IS STABLE THRHOUGHOUT THE NIGHT. BIPAP IS IN USED THROUGHOUT THE NIGHT. DENIES ANY FURTHER NEEDS, CONTINUE TO MONITOR PATIENT.
[2019-04-02 06:47] LABS: HEMATOCRIT 38.7 % (42.0-52.0); HEMOGLOBIN 12.4 gm/dL (14.0-18.0); MCH 29.3 pg (26.0-34.0); MCHC 32.1 g/dL (28.0-37.0); MCV 91.4 fL (80.0-100.0); PLATELET COUNT 200 thou/uL (150-400); RBC 4.23 mil/uL (4.50-6.00); RDW 15.7 % (10.5-14.5); WBC 18.6 thou/uL (4.0-11.0)
[2019-04-02 06:58] LABS: ALBUMIN 2.9 g/dL (3.4-5.0); CALCIUM 8.4 mg/dL (8.5-10.1); CREATININE 0.6 mg/dL (0.7-1.3); POTASSIUM 4.6 mmol/L (3.5-5.1); TOTAL BILIRUBIN 0.4 mg/dL (<0.1-1.0); TOTAL PROTEIN 5.7 g/dL (6.4-8.2)
[2019-04-02] MEDS ORDERED: NORVASC2.5 MG PO (07:49)
[2019-04-02 07:55] LABS: ABSOLUTE NEUTROPHILS 15.6 thou/uL (1.4-8.2)
[2019-04-02 07:56] LABS: ANISOCYTOSIS 1+
[2019-04-02 08:00] VITALS: BP 151/73
--- NOTE | 2019-04-02 14:06 | NUR ---
AUTHORIZATION REQUEST FOR ACUTE REHAB SENT TO [facility] THIS DATE. AWAITING RESPONSE FROM [facility]'S CASE MANAGEMENT DEPARTMENT. THANK YOU FOR THIS REFERRAL.
--- NOTE | 2019-04-02 15:25 | NUR ---
patient with dc orders today. Patient with 5N eval. 5N in process of seeking auth. Discussed with patient who appears anxious, taking bipap on/off. Called to discuss plan. Left Denisena list in room for post acute care.
--- NOTE | 2019-04-02 15:38 | NUR ---
Assumed pt care this am, vs have been stable. Pt has complained of pain and soa start of the shift. This was aggrivated when PT went to work with the pt mid morning along with sever anxiety.
[2019-04-02 16:00] VITALS: BP 98/74
[2019-04-02 20:00] VITALS: BP 128/88
[2019-04-03 04:00] VITALS: BP 140/71
--- NOTE | 2019-04-03 05:25 | NUR ---
ASSUMED PT CARE AT 1900 WITH NO SIGN OF DISTRESS NOTED IN PT. FAMILY AT BEDSIDE. ASSESSMENT COMPLETED AND CHARTED. VITAL SIGNS STABLE. SCHEDULED MEDS ADMINISTERED TO PT. DENIES ANY FURTHER NEEDS AT THIS TIME. CONTINUE TO MONITOR PATIENT.
[2019-04-03 08:00] VITALS: BP 143/58
[2019-04-03 12:00] VITALS: BP 142/73
--- NOTE | 2019-04-03 15:11 | NUR ---
spoke with and updated plan for 5N pending auth from insurance. Discussed with vidal skilled list in room for option if no to 5N. She did not see skilled list in room. Casemgt went in room and on patients table. Likely will know today if accepted to 5N.
[2019-04-03 16:00] VITALS: BP 131/74
--- NOTE | 2019-04-03 16:08 | NUR ---
Insurance denied 5N referrals to [facility] for review. Requested Bipap at facility.
--- NOTE | 2019-04-03 16:58 | NUR ---
CALL RECEIVED FROM [employer], PAVLE Phillips STATING THAT PATIENT HAD BEEN DENIED AUTHORIZATION FOR ACUTE REHAB STAY. REASON FOR DENIAL STATED WAS THAT PATIENT WON'T BE ABLE TO TOLERATE 3 HOURS OF THERAPY 5 DAYS A WEEK. APPARATUS REPAIR MECHANIC INFORMED FOR DENIAL AND FAXED A COPY OF DENIAL LETTER SENT BY [employer]. [employer] DOES NOT DO PEEER TO PEER REQUESTS. IF PHYSICIAN WISHES TO APPEAL DENIAL, A CALL MUST BE PLACED TO THE APPEALS UNIT AT [facility] P: [phone] F: [phone].
--- NOTE | 2019-04-03 17:07 | NUR ---
FAXED REFERRAL TO [facility] LEFT MSG WITH RAMÍREZ IN ADM TO REVIEW AND THAT PT IS LOOKING AT 2 FACILITIES. FAXED REFERRAL TO [facility] SPOKE WITH ASHER COMBS SHE RECEIVED REFERRAL AND WILL REVIEW IF THEY CAN ACCEPT SHE IS TO SUBMIT FOR AUTH. DCP TO FOLLOW.
[2019-04-03 19:54] VITALS: BP 143/75
[2019-04-04 04:36] VITALS: BP 140/71
--- NOTE | 2019-04-04 05:37 | NUR ---
ASSUMED PT CARE AT 1900 WITH NO SIGN OF DISTRESS NOTED IN PT. PT IS ALERT AND ORIENTED. NO SIGN OF DISTRESS NORED IN PT. DENIES ANY NEEDS AT THIS TIME. SCHEDULED MEDS ADMINISTERED TO PT. NO SIGN OF DISTRESS NOTED. CONTINUE TO MONITOR
[2019-04-04 11:08] VITALS: BP 151/85
--- NOTE | 2019-04-04 15:24 | NUR ---
[facility] the pt for a snf stay. Auth in place for likely dc tomorrow per the attending. Pt updated at bedside per nursing and marine underwriter left a message for his Dione. Dione had left a msg with cm last night requesting [facility] as their first choice vs [facility]. Pt may need a trilogy. Pulmonary advised that [facility] can provide if ordered at dc. Pt is on high flow o2. Chart copy in progress. Care team updated on dc planing efforts.
--- NOTE | 2019-04-04 19:21 | NUR ---
ASSESSMENT CHARTED, VSS, ALERT AND ORIENTED, MEDICATION FOR PAIN GIVEN, AT BEDSIDE, WILL CONTINUE TO MONITOR.
[2019-04-04 20:35] VITALS: BP 143/65
--- NOTE | 2019-04-05 02:52 | NUR ---
ASSESSMENT DOCUMENTED.PT BEEN RESTING IN NO ACUTE DISTRESS.A/OX4.VSS.ON BIPAP AT THIS TIME,SATS ADEQUATE.ON O2 AT 6LITERS WHEN NOT ON BIPAP.DYSPNEA WITH ACTIVITIES NOTED.VOIDS VIA URINAL.C/O PAIN TO STERNUM,RATE 8/10,CONTROLLED WITH PAIN MEDS.POC IS TO DISCHAGE TO SKILLED FACILITY FOR REHAB.WILL CONT TO MONITOR PER POC.
[2019-04-05 04:45] VITALS: BP 147/73
[2019-04-05 07:40] VITALS: BP 135/70
--- NOTE | 2019-04-05 07:48 | NUR ---
ASSUMED CARE OF PT FOR DAY SHIFT, A&0X4, IS NOT IMPULSIVE THUS FAR, NECK PAIN CHRONIC AND NOW CP D/T RECENT HX OF CPR PRIOR TO ADMISSION. ON BIPAP, DESATS EASILY, FREQ REMINDERS CONCERNING SLOW EXHALE/INHALATIONS, ENCOURAGED TO MAKE SMALL POSITION CHANGES HIMSELF AND W/STAFF ENCOURAGEMENT. REMINDER ON HOW TO USE CALL LIGHT, ALSO ENCOURAGED TO USE CALL LIGHT FOR ANY NEEDS. CARDIAC MONITORED. USES 02 AT HOME, CONCERN FOR TODAY IS TO BE LESS SOA W/ACTIVITY, WILL KEEP ATOP OF PAIN/ANXIETY MED ADM
[2019-04-05 11:15] VITALS: BP 133/75
[2019-04-05 15:40] VITALS: BP 132/73
--- NOTE | 2019-04-05 17:11 | NUR ---
Dc on hold today due to pulm edema. Spoke with the pt at bedside, his Dione via phone and the care team regarding his dc plan s. All parties anticipate dc to snf at [facility] tomorrow. Trilogy orders and settings faxed to [facility] and they will arrange to have one delievered to them tomorrow. Auth in place with [employer]. Pt is on 6liters of o2.
[2019-04-05 19:55] VITALS: BP 140/79
--- NOTE | 2019-04-06 01:32 | NUR ---
ASSESSMENT DOCUMENTED.PT BEEN RESTING IN NO ACUTE DISTRESS.A/OX4.VSS.ON BIPAP AT THIS TIME.TOLERATING.PAIN MEDS GIVEN FOR STERNAL PAIN.POC IS TO DISCHARGE TO [place] FOR REHAB TODAY.
[2019-04-06 03:55] VITALS: BP 129/73
[2019-04-06 05:48] LABS: CALCIUM 8.5 mg/dL (8.5-10.1); CREATININE 0.7 mg/dL (0.7-1.3); POTASSIUM 4.7 mmol/L (3.5-5.1)
[2019-04-06 07:53] VITALS: BP 137/75
--- NOTE | 2019-04-06 08:30 | NUR ---
ASSUMED CARE OF PT APPROX 0715, STILL VERY SOA W/ANY MOVEMENT, C/O LOWER BACK AND NONCARDIAC CP (FROM CPR DONE PRIOR ADMISSION), AMB INDEPENDENTLY, FEELS LIKE HE'S BEEN DOWN SO LONG A WALKER IS NECESSARY, ENCOURAGED TO CONTINUE TO MAKE SMALL FREQ POSITION CHANGES AND HELP W/THAT WELL. CARDIAC MONITORED. BIPAP HS AND 6L NC AND 3-4NC AT HOME. ENCOURAGED HIM RE: IV MORPHINE AND NEED TO TAPER THAT PRIOR TO DISCHARGE; HE ASKED FOR ONE MORE DOSE IN SPITE OF, RESPIRATIONS WERE 24; ACQUIESCED. WILL CONTINUE TO MONITOR AND WORK ON DISCHARGE
[2019-04-06 11:56] VITALS: BP 150/72
--- NOTE | 2019-04-06 12:38 | NUR ---
Pt dcing to snf today to [facility]. Pt updated at bedside. He will call his . Dc neighborhood planner to fax ammended dc summary and instructions to admissions at [facility]. They have arranged for a triology there. DC neighborhood planner to setup [facility] transport with 5-7 liters of o2. Pt does desat with activity and may need high flow in route. Anticipated dc timeframe 3-4 pm. Care team updated. Chart copy to be updated. Nursing to call report.
--- NOTE | 2019-04-06 12:59 | NUR ---
Patient discharging today to [facility] via [facility], 6L oxygen (they can't do bipap, dp called spoke with Priya on 2N who asked nurse if patient can go without bipap for ride, Priya said patient may go without bipap for ride. DP called Nikolay back at [facility] and told him patient can go without bipap for ride. [facility] fax down, dp sent copy of ambulance form to 2n paralegal legal secretary to give to [facility] when they arrive. DC orders faxed to [facility] and paralegal legal secretary on 2N to include in chart copy. DP notified lobo/Smitha who notified everyone.
--- NOTE | 2019-04-06 17:26 | NUR ---
REPORT GIVEN TO VJ HERNANDEZ, PT AWAITING SE [facility]O PICC LINE REMOVED AND TELE REMOVED ALSO.
== END 2019-04-06 17:55 | DRG 208 ==
LOC: ER 07:54 → EROBS 11:11 → ICU 11:11 → 2N 11:11 → ICU 12:40 → 2N 03-30 14:27
PROVIDERS: Emergency Medicine; Hospitalist; Internal Medicine Pulmonary Disease; Nurse Practitioner; Pediatrics; ADMIT Family Medicine
DX: J96.22 Acute and chronic respiratory failure with hypercapnia (principal); I46.9 Cardiac arrest, cause unspecified; J18.9 Pneumonia, unspecified organism; I48.92 Unspecified atrial flutter; N39.0 Urinary tract infection, site not specified; J44.1 Chronic obstructive pulmonary disease with (acute) exacerbation; J96.21 Acute and chronic respiratory failure with hypoxia; I48.0 Paroxysmal atrial fibrillation; I71.4 Abdominal aortic aneurysm, without rupture; E78.5 Hyperlipidemia, unspecified; I87.2 Venous insufficiency (chronic) (peripheral); I27.20 Pulmonary hypertension, unspecified; R74.0 Nonspecific elevation of levels of transaminase and lactic acid dehydrogenase [LDH]; I95.9 Hypotension, unspecified; G62.9 Polyneuropathy, unspecified; R29.6 Repeated falls; Z93.3 Colostomy status; Z87.891 Personal history of nicotine dependence; Z99.81 Dependence on supplemental oxygen; Z82.49 Family history of ischemic heart disease and other diseases of the circulatory system; Z79.82 Long term (current) use of aspirin; Z79.899 Other long term (current) drug therapy; Z90.49 Acquired absence of other specified parts of digestive tract
CPT/HCPCS: 10078; 10081; 10797; 27000

== ENCOUNTER 2019-07-30 21:33 | Inpatient (IN) | payer OTHER ==
[~2019-07-30] VITALS: Ht 185.4 cm; Wt 114.8 kg
[~2019-07-30 21:33] MED LIST changes: +NORVASC2.5 MG PO
[2019-07-30 21:36] VITALS: BP 124/64
[2019-07-30 22:11] LABS: BE(vivo) 2.7 mmol/L (-2 to +3); HCO3 27.6 mmol/L (22.0-26.0); PCO2 43.7 mmHg (35.0-45.0); pH 7.419 (7.360-7.450); sO2 92.7 % (92.0-98.0)
[2019-07-30] MEDS ORDERED: PANTOPRAZOLE SO40 M1 PO (22:15)
[2019-07-30 22:22] LABS: HEMATOCRIT 38.4 % (42.0-52.0); HEMOGLOBIN 12.4 gm/dL (14.0-18.0); MCH 29.7 pg (26.0-34.0); MCHC 32.2 g/dL (28.0-37.0); MCV 92.3 fL (80.0-100.0); PLATELET COUNT 206 thou/uL (150-400); RBC 4.16 mil/uL (4.50-6.00); RDW 14.6 % (10.5-14.5); WBC 20.2 thou/uL (4.0-11.0)
[2019-07-30 22:45] LABS: ALBUMIN 3.3 g/dL (3.4-5.0); ANION GAP 3 mmol/L (7-16); BUN 21 mg/dL (7-18); CHLORIDE 104 mmol/L (98-107); CO2 33 mmol/L (21-32); CREATININE 0.8 mg/dL (0.7-1.3); DIRECT BILIRUBIN < 0.1 mg/dL (<0.1-0.3); GLUCOSE 114 mg/dL (74-106); POTASSIUM 4.4 mmol/L (3.5-5.1); SGOT 23 U/L (15-37); SGPT 31 U/L (30-65); SODIUM 140 mmol/L (136-145); TOTAL BILIRUBIN 0.4 mg/dL (<0.1-1.0); TOTAL PROTEIN 6.6 g/dL (6.4-8.2)
[2019-07-30 22:48] LABS: ABSOLUTE NEUTROPHILS 17.8 thou/uL (1.4-8.2)
[2019-07-30 22:49] LABS: LARGE PLATELETS OCCASIONAL
[2019-07-31] VITALS (7 sets, daily range): BP systolic 119–147; BP diastolic 50–66
--- NOTE | 2019-07-31 06:16 | NUR ---
PATIENTS CARES WERE ASSUMED AT SHIFT CHANGE. PATIENT WAS ASSESSED AND MEDS WERE PASSED. FLUIDES WERE TURNED OFF AFTER ER BOLUS BAG WAS GIVEN DUE TO INCREASE COURSE LUNG SOUNDS. DR. HAWLEY WAS CALLED. HOURLY ROUNDING WAS DONE. THE BED IS IN A LOW AND LOCKED POSITION.
--- NOTE | 2019-07-31 08:35 | EKG ---
[place] [address] [facility] [place] [address] ELECTROCARDIOGRAM REPORT Name: MOISES AQUINO Room #: 211-P ADM IN M.R.#: [id number] Admission: 07/30/19 Attend Phys: Ehsan Mario MD Discharge: Date of : 52 Report #: [id number] THIS REPORT FOR: //name// [facility] ED Test Date: 2019-07-30 Test Time: 21:50:12 Pat Name: MOISES AQUINO Department: Room: 211 Gender: M Professor Of Business Administration: MITESH : 1950 Requested By: Nell Ferrer Order Number: [id number] MD: Prashant Evans Measurements Intervals [place] Rate: 97 P: 264 OK: 208 QRS: -69 QRSD: 140 T: 85 QT: 378 QTc: 480 Interpretive Statements Sinus or ectopic atrial rhythm First-degree AV block Left bundle branch block Baseline wander in lead(s) V1 Compared to ECG 03/26/2019 18:31:51 no significant change was found Electronically Signed On 07-31-2019 8:34:52 POWDER ROOM ATTENDANT by Prashant Evans [email or web address] <ELECTRONICALLY SIGNED> By: Prashant Evans MD, [facility] 07/31/19 0834 Prashant Evans MD, [facility] /EPI
--- NOTE | 2019-07-31 13:40 | NUR ---
met with patient who admits with COPD. Patient lives at home with in independent home. All needs on one level. he has cane and walker at home. He uses cane in community. In Apr 06 patient dc to [facility]. he reports he did not rec much PT he reports every other day. Patient has home oxygen via [facility] patient usu at 4 liters at rest and 5 Liters with activity. he has home Trilogy. Patient reports recent road trips and feel may have done too much. [facility]emgt following for dc planning.
--- NOTE | 2019-07-31 18:53 | NUR ---
ASSUMMED PT CARE AT APPROXIMATELY 0700. PT A&O X4. ASSESSMENT CHARTED. FALL PRECAUTIONS IN PLACE. PT DENIES HAVING CHEST PAIN. PT DENIES HAVING SOB. PT STATED HE HAD CHRONIC NECK PAIN. PT RECEIVED ANALGESICS. PT STATED ANALGESICS HELPED RELEIVE PAIN. PT AND PT'S FAMILY EDUCATED ABOUT POC. PT AMBULATES STEADY/INDEPENDENT. PT STATED HE DID NOT HAVE SOME OF HIS HOME MEDICATIONS IN [place]. DR NOTIFIED. ORDERED MEDS. HOME MEDS IN PT'S EM[place]. VITAL SIGNS STABLE. PT COMFORTABLE IN BED. PT DENIES HAVING FURTHER CONCERNS.
[2019-07-31] MEDS ORDERED: MOBIC7.5 MG PO (22:32)
[2019-07-31] MEDS ORDERED: AZITHROMYCIN500 MG PO (22:34)
[2019-07-31] MEDS ORDERED: NEURONTIN 300M300 M2 PO (22:36)
[2019-08-01 04:43] VITALS: BP 124/73
--- NOTE | 2019-08-01 05:45 | NUR ---
ASSUMED PT CARE AT 1900, VSS. PT A&0X4. PT IS STEADY ON IS FEET, STILL ON O2 AT 4L, TRILOGY TA NOC. NO COMPLAINTS OF PAIN OR DISCOMFORT. MED REC [place]. UNEVENTFUL NIGHT, WILL CONTINUE TO MONITOR.
[2019-08-01 07:45] VITALS: BP 141/64
[2019-08-01 11:56] VITALS: BP 115/59
[2019-08-01 15:47] VITALS: BP 133/71
--- NOTE | 2019-08-01 17:45 | NUR ---
ASSESSMENT CHARTED. PT ALERT AND ORIENTED. VSS. RECEIVED PRN PAIN MED WITH PARTIAL RELIEF. NO RESPIRATORY DISTRESS NOTED. WILL CONTINUE TO MONITOR.
[2019-08-01 20:44] VITALS: BP 147/64
--- NOTE | 2019-08-02 05:45 | NUR ---
PT CARE ASSUMED AROUND 1900. PT C/O PAIN TO NECK AND GIVEN MEDICATION PER EMAR. PT HAD NO C/O N/V/D. PT VSS. PT IS UP ADLIB. ASSESSMENT CHARTED AND PT IS PLANNING FOR DISCHARGE IN AM. WILL CONTINUE TO MONITOR PER PT POC.
[2019-08-02 06:10] VITALS: BP 120/87
[2019-08-02 08:00] VITALS: BP 153/72
[2019-08-02 12:00] VITALS: BP 119/59
[2019-08-02] MEDS ORDERED: CEFDINIR300 MG PO (13:07)
[2019-08-02] MEDS ORDERED: PREDNISONE10 MG PO (13:08)
[2019-08-02 14:44] VITALS: BP 119/59
--- NOTE | 2019-08-02 16:37 | NUR ---
ASSESSMENT CHARTED. PT ALERT AND ORIENTED. VSS. RECEIVED PRN PAIN MED FOR NECK PAIN WITH PARTIAL RELIEF. RT TREATMENT AND IV ABX PROVIDED ORDERED. NO CARDIAC OR RESPIRATORY DISTRESS NOTED. ORDERS GIVEN TO DISCHARGE PT TO HOME. DISCHARGE INSTRUCTIONS GIVEN TO PT. PT VERBERLISED UNDERSTANDING.
== END 2019-08-02 16:47 | disposition home or self-care (01) | DRG 871 ==
LOC: ER 21:33 → 2N 23:30 → EROBS 23:30 → 2N 07-31 00:25 → ENTRNSPT 08-02 16:30 → 2N 08-02 16:47
PROVIDERS: Nurse Practitioner; ADMIT Family Medicine
PROC: 5A09357 Assistance with Respiratory Ventilation, Less than 24 Consecutive Hours, Continuous Positive Airway Pressure (ICD-10-PCS; principal; 2019-07-31)
PROC: 5A09357 Assistance with Respiratory Ventilation, Less than 24 Consecutive Hours, Continuous Positive Airway Pressure (ICD-10-PCS; 2019-08-01)
DX: A41.9 Sepsis, unspecified organism (principal); J18.9 Pneumonia, unspecified organism; J44.1 Chronic obstructive pulmonary disease with (acute) exacerbation; J44.0 Chronic obstructive pulmonary disease with (acute) lower respiratory infection; I27.20 Pulmonary hypertension, unspecified; G62.9 Polyneuropathy, unspecified; F12.90 Cannabis use, unspecified, uncomplicated; F17.210 Nicotine dependence, cigarettes, uncomplicated; Z99.81 Dependence on supplemental oxygen; Z82.49 Family history of ischemic heart disease and other diseases of the circulatory system; Z79.899 Other long term (current) drug therapy
CPT/HCPCS: 10081

== ENCOUNTER → 2019-09-03 | Outpatient (CLI) | payer OTHER ==
[~2019-09-03] MED LIST changes: +AZITHROMYCIN500 MG PO; +CEFDINIR300 MG PO; +MOBIC7.5 MG PO; +NEURONTIN 300M300 M2 PO; +PANTOPRAZOLE SO40 M1 PO; +PREDNISONE10 MG PO
[2019-09-03 13:46] LABS: CREATININE 0.9 mg/dL (0.7-1.3)
== END ==
LOC: CAT 12:43
PROVIDERS: Nuclear Medicine Nuclear Cardiology
DX: N28.1 Cyst of kidney, acquired (principal); I71.4 Abdominal aortic aneurysm, without rupture; I77.810 Thoracic aortic ectasia; J43.9 Emphysema, unspecified; J98.4 Other disorders of lung; M51.37 Other intervertebral disc degeneration, lumbosacral region; M16.0 Bilateral primary osteoarthritis of hip; K76.89 Other specified diseases of liver; R16.1 Splenomegaly, not elsewhere classified; Z95.828 Presence of other vascular implants and grafts

== ENCOUNTER → 2019-09-04 | Outpatient (CLI) | payer OTHER | LOC: SJCVCIMAG 08:05 | DX: I65.23 Occlusion and stenosis of bilateral carotid arteries (principal); I71.4 Abdominal aortic aneurysm, without rupture; I10 Essential (primary) hypertension; Z87.891 Personal history of nicotine dependence ==

== ENCOUNTER → 2019-10-18 | Outpatient (CLI) | payer OTHER ==
[~2019-10-18] VITALS: Ht 185.4 cm; Wt 99.8 kg
[~2019-10-18] MED LIST changes: +GINKGO BILOBA500 MG PO; +GINSENG100 MG PO; +IPRAT-ALBUT 0.5-3 ML INH; +PULMICORT0.25 MG/3 INH; +VITAMIN B-121000 MC2 SUBLING; +VITAMIN B-650 M1 PO; +VITAMIN C500 M1 PO
--- NOTE | 2019-10-22 11:17 | P ---
[facility] [place] [address] PROCEDURE REPORT Name: MOISES AQUINO Room #: REG [facility].#: [id number] Admission: 10/18/19 Attend Phys: Lalo Rea MD Discharge: Date of : 52 Report #: [id number] THIS REPORT FOR: cc: Ehsan Mario MD, Neal A. MD Thesing,Lalo Welch MD ~ CC: Lalo Mario MD BRIEF HISTORY: The patient is a 69-year-old male who had his first colonoscopy 2-1/2 years ago, who presents for high risk screening colonoscopy. Twelve adenomas removed at that time. PREOPERATIVE DIAGNOSIS: High risk screening colonoscopy. POSTOPERATIVE DIAGNOSES: 1. Multiple colon polyps. 2. Rectal polyp. 3. Mild left-sided diverticulosis coli. 4. Unremarkable surgical anastomosis, rectosigmoid junction. MEDICATIONS: Deep sedation with propofol per anesthesia. SPECIMENS: 1. Polyp at 50 cm. 2. Polyp at 70 cm. 3. Cecal polyp. 4. Proximal ascending colon polyps x 2. 5. Proximal transverse colon polyp. 6. Mid transverse colon polyps x 4. 7. Polyp at 40 cm. 8. Rectal polyp. ESTIMATED BLOOD LOSS: 3 mL. PROCEDURE: Colonoscopy to cecum and terminal ileum with snare polypectomy. FINDINGS: Prior to propofol sedation, procedure of colonoscopy discussed with the patient as well as potential risks and its complications. He indicates he understands and desires to proceed. DESCRIPTION OF PROCEDURE: With the patient in left lateral decubitus position, digital examination was completed, which revealed no abnormalities. Subsequently, the Olympus video colonoscope was introduced in the rectum, advanced under direct vision to the cecum. Done with minimal difficulty. The cecum was identified by the ileocecal valve and the appendiceal orifice. I was [facility] [address] [place] [address] PROCEDURE REPORT Name: MOISES AQUINO Room #: REG LISA Salomon#: [id number] Admission: 10/18/19 Attend Phys: Lalo Rea MD Discharge: Date of : 52 Report #: [id number] able to visualize the distal segment of the terminal ileum, which was inspected and noted to be unremarkable. At that point, the scope was slowly withdrawn and careful circumferential views were obtained. Upon slow withdrawal of the scope, the prep was good. The mucosa was within normal limits, normal vascular pattern, normal light reflex. As we withdrew the scope, he was noted to have multiple polyps throughout the colon. The polyps were located as noted above. Most of these polyps were flat and most of these polyps were in the range of about 6-8 mm. There were several slightly larger, maybe 10 mm. One of the polyp in the proximal ascending colon was more of a bulky polyp than a flat polyp. Of all the polyps, only one was a diminutive polyp of only several millimeters. The vast majority were removed by cold snare polypectomy. Several required hot snare polypectomy and cleaned up of edges with biopsy forceps. All polyps removed with minimal difficulty. There was good hemostasis. In addition, upon slow withdrawal of scope, the mucosa otherwise was within normal limits. Other findings included a few scattered diverticula in the distal colon. The patient has had a previous segmental resection for diverticular disease. The rectosigmoid anastomosis was unremarkable. The scope was withdrawn in the rectum and in the rectum a flat 8-10 mm polyp was seen. This may be hyperplastic, but given his history, it was removed by cold snare polypectomy. Scope was withdrawn. The patient tolerated the procedure well. CONDITION OF THE PATIENT UPON DISCHARGE: Following procedure, the patient was drowsy, arousable, conversant and will be discharged home when fully ambulatory. INSTRUCTIONS TO THE PATIENT AND FAMILY AT THE TIME OF DISCHARGE: We will follow up on the pathology. The patient had 12 adenomas on last exam, 12 polyps removed today. I suspect most if not all are adenomas. If his lifetime total polyp count rises above 20, a genetic testing would be consideration for this patient. Given the large number of polyps, recommend he return in 2 years for high risk screening colonoscopy once again. He will otherwise return to the care of Dr. Ehsan Mario and return to see me as needed. <ELECTRONICALLY SIGNED> By: Lalo Rea MD 10/22/19 1117 0829 0900 Lalo Rea MD /nt
--- NOTE | 2019-10-22 17:09 | PATH ---
[facility] [place] [address] PATHOLOGY RPT PROCEDURE Name: DIETER ARRIOLA Room #: REG AVERYGretchen M.Daniela.#: [id number] Admission: 10/18/19 Date of : 52 Discharge: Report #: [id number] Path Case #: [id number] [facility] Accession Number: [id number] . 01 Material submitted: . PART A: colon - POLYP AT 50CM PART B: colon - POLYP AT 70CM PART C: cecum - POLYP AT CECUM PART D: colon - POLYP AT PROXIMAL ASCENDING COLON X2. Modifiers: proximal, ascending PART E: colon - POLYP AT PROXIMAL TRANSVERSE COLON. Modifiers: proximal, transverse PART F: colon - POLYP AT MID TRANSVERSE COLON X4. Modifiers: mid, transverse PART G: colon - POLYP AT 40CM PART H: rectum - POLYP AT RECTUM . 01 Clinical history: . Pre-op diagnosis: History of polyps Post-op diagnosis: Colon polyps . 02 Diagnosis: A. Polyp, at 50 cm, endoscopic biopsy: - Tubular adenoma. - Negative for high-grade dysplasia. . B. Polyp, at 70 cm, endoscopic biopsy: - Minute tubular adenoma. - Negative for high-grade dysplasia. . C. Polyp, at cecum, endoscopic biopsy: - Tubular adenoma. - Negative for high-grade dysplasia. . D. Polyp x2, at proximal ascending colon, endoscopic biopsy: - Tubular adenoma, multiple fragments. - Negative for high-grade dysplasia. . E. Polyp, at proximal transverse colon, endoscopic biopsy: - Tubular adenoma, multiple fragments. - Negative for high-grade dysplasia. . F. Polyp x 4, mid transverse colon, endoscopic biopsy: - Tubular adenoma, multiple fragments. - Negative for high-grade dysplasia. . G. Polyp, at 40 cm, endoscopic biopsy: - Hyperplastic polyp. [address] [address] PATHOLOGY RPT PROCEDURE Name: KENIADIETER Room #: REG [facility] M.Dnaiela.#: [id number] Admission: 10/18/19 Date of : 52 Discharge: Report #: [id number] Path Case #: [id number] - Negative for dysplasia. . H. Polyp, at rectum, endoscopic biopsy: - Hyperplastic polyp. - Negative for dysplasia. (IUV:pit 10/22/2019) QTP 10/22/2019 1438 Local . 02 Electronically signed: . Destiny Nance MD, Pathologist NPI- [id number] . 01 Gross description: . A. The specimen is received in formalin, labeled "Dieter Hurla, polyp at 50 cm". Received is a segment of pale jiang soft tissue measuring 0.7 cm in maximum dimensions. The specimen is submitted entirely in cassette A1. . B. The specimen is received in formalin, labeled "Dieter Hurla, polyp at 70 cm". Received is a segment of pale jiang soft tissue measuring 0.7 cm in maximum dimensions. The specimen is submitted entirely in cassette B1. . C. The specimen is received in formalin, labeled "Dieter Hurla, polyp at cecum". Received are two segments of pale jiang soft tissue ranging in size from 0.4 to 0.8 cm in maximum dimensions. The specimen is submitted entirely in cassette C1. . D. The specimen is received in formalin, labeled "Dieter Hurla, polyp at proximal ascending colon x2". Received are multiple (greater than 10) segments of pale jiang soft tissue ranging in size from 0.2 to 1.2 cm in maximum dimensions. The surgical margin of the larger segment is inked and the segment is bisected. The specimen is submitted entirely in cassette D1 and D2. . E. The specimen is received in formalin, labeled "Dieter Hurla, polyp at proximal transverse colon". Received are multiple (greater than 10) segments of pale jiang soft tissue ranging in size from 0.2 to 0.6 cm in maximum dimensions. The specimen is submitted entirely in cassette E1. . F. The specimen is received in formalin, labeled "Dieter Hurla, polyp at mid transverse colon x4". Received are six segments of pale jiang soft tissue ranging in size from 0.2 to 0.6 cm in maximum dimensions. The specimen is submitted entirely in cassette F1. . G. The specimen is received in formalin, labeled "Dieter Hurla, polyp at 40 cm". Received is a segment of pale jiang soft tissue measuring 0.6 cm in maximum dimensions. The specimen is submitted entirely in cassette G1. . [address] [address] PATHOLOGY RPT PROCEDURE Name: DIETER ARRIOLA Room #: REG CL M..#: [id number] Admission: 10/18/19 Date of : 52 Discharge: Report #: [id number] Path Case #: [id number] H. The specimen is received in formalin, labeled "Dieter Arriola, polyp at rectum". Received is a segment of pale jiang soft tissue measuring 0.5 cm in maximum dimensions. The specimen is submitted entirely in cassette H1. (CAA; 10/19/2019) QAC/QAC 10/19/2019 1109 Local . 02 Pathologist provided ICD-10: D12.6, D12.0, D12.2, D12.3, K63.5, K62.1, Z86.010 . 02 CPT . 800415, 822999, 049559, 996321, 943233, 619830, 868341, 521099 Specimen Comment: A courtesy copy of this report has been sent to [phone], [phone]- Specimen Comment: [id number] Specimen Comment: Report sent to / DR HAWLEY Performed at: [address], [place] [id number] MD Kapil Medina MD Phone: [phone] Performed at: [address] [id number] MD Destiny Nance MD Phone: [phone]
== END | disposition home or self-care (01) ==
LOC: GI 06:31
DX: Z12.11 Encounter for screening for malignant neoplasm of colon (principal); Z86.010 Personal history of colon polyps; D12.3 Benign neoplasm of transverse colon; D12.0 Benign neoplasm of cecum; D12.2 Benign neoplasm of ascending colon; D12.5 Benign neoplasm of sigmoid colon; D12.4 Benign neoplasm of descending colon; K62.1 Rectal polyp; K57.30 Diverticulosis of large intestine without perforation or abscess without bleeding; K21.9 Gastro-esophageal reflux disease without esophagitis; I10 Essential (primary) hypertension; E78.5 Hyperlipidemia, unspecified; J43.9 Emphysema, unspecified; G62.9 Polyneuropathy, unspecified; Z98.890 Other specified postprocedural states; Z98.0 Intestinal bypass and anastomosis status; Z79.899 Other long term (current) drug therapy; Z87.891 Personal history of nicotine dependence; Z87.01 Personal history of pneumonia (recurrent)

== ENCOUNTER → 2020-04-02 | Outpatient (CLI) | payer OTHER | LOC: RAD 11:54 | PROVIDERS: ATTEND Internal Medicine Pulmonary Disease | DX: J44.9 Chronic obstructive pulmonary disease, unspecified (principal); R06.02 Shortness of breath ==

== ENCOUNTER → 2020-04-09 | Outpatient (CLI) | payer OTHER | LOC: CAT 10:00 | PROVIDERS: ATTEND Internal Medicine Pulmonary Disease | DX: R91.8 Other nonspecific abnormal finding of lung field (principal); J43.9 Emphysema, unspecified; J96.11 Chronic respiratory failure with hypoxia ==

== ENCOUNTER → 2020-09-03 | Outpatient (CLI) | payer OTHER ==
[2020-09-03 09:34] LABS: CREATININE 1.1 mg/dL (0.7-1.3)
== END ==
LOC: CAT 08:35
PROVIDERS: ATTEND Nuclear Medicine Nuclear Cardiology
DX: I71.4 Abdominal aortic aneurysm, without rupture (principal); I71.2 Thoracic aortic aneurysm, without rupture; K76.89 Other specified diseases of liver; Z95.828 Presence of other vascular implants and grafts

== ENCOUNTER → 2020-09-04 | Outpatient (CLI) | payer OTHER | LOC: SJCVCIMAG 11:18 | PROVIDERS: ATTEND Nuclear Medicine Nuclear Cardiology | DX: I65.23 Occlusion and stenosis of bilateral carotid arteries (principal); I71.4 Abdominal aortic aneurysm, without rupture; I77.9 Disorder of arteries and arterioles, unspecified; I48.92 Unspecified atrial flutter; I11.9 Hypertensive heart disease without heart failure; E78.5 Hyperlipidemia, unspecified; Z72.0 Tobacco use; Z88.8 Allergy status to other drugs, medicaments and biological substances; Z72.89 Other problems related to lifestyle ==

== ENCOUNTER → 2021-02-18 | Outpatient (CLI) | payer OTHER ==
[2021-02-18 14:09] LABS: ABSOLUTE NEUTROPHILS 9.3 thou/uL (1.4-8.2); BASOPHILS 0.2 % (0.0-2.0); EOSINOPHILS 0.5 % (0.0-3.0); HEMATOCRIT 38.2 % (42.0-52.0); HEMOGLOBIN 12.4 gm/dL (14.0-18.0); LYMPHOCYTES 4.6 % (24.0-44.0); MCH 31.2 pg (26.0-34.0); MCHC 32.5 g/dL (28.0-37.0); MONOCYTES 5.6 % (1.0-8.0); PLATELET COUNT 216 thou/uL (150-400); POLYS 89.1 % (36.0-66.0); RBC 3.98 mil/uL (4.50-6.00); RDW 14.2 % (10.5-14.5); WBC 10.4 thou/uL (4.0-11.0)
== END ==
LOC: RAD 13:35
PROVIDERS: ATTEND Pediatrics
DX: R91.8 Other nonspecific abnormal finding of lung field (principal)

== ENCOUNTER → 2021-09-09 | Outpatient (CLI) | payer OTHER ==
[2021-09-09 10:42] LABS: CREATININE 0.9 mg/dL (0.7-1.3)
== END ==
LOC: CAT 09:39
PROVIDERS: ATTEND Nuclear Medicine Nuclear Cardiology
DX: J98.11 Atelectasis (principal); I71.4 Abdominal aortic aneurysm, without rupture; E27.9 Disorder of adrenal gland, unspecified